=== PATIENT | male | born 1940 | race Caucasian/White ===

== ENCOUNTER 2021-12-23 13:19 | Outpatient (REF) | payer BC, SELFPAY ==
[2021-12-23 14:11] LABS: Chloride* 103 mmol/L (96-114); Potassium* 4.1 mmol/L (3.6-5.1); Sodium* 139 mmol/L (135-149)
[2021-12-23 14:14] LABS: Carbon Dioxide* 29 mmol/L (20-32); Creatinine* 1.3 mg/dL (0.5-1.5); Estimated Glomerular Filt Rate 55 ml/min
[2021-12-23 14:15] LABS: Blood Urea Nitrogen* 41 mg/dL (7-30); Calcium* 8.4 mg/dL (8.4-10.6); Glucose* 114 mg/dL (60-115)
== END 2021-12-23 13:20 | disposition home or self-care (01) ==
LOC: NPINS 13:19
PROVIDERS: PCP Family Medicine; Visit Provider Family Medicine
DX: N18.9 Chronic kidney disease, unspecified (principal)
CPT/HCPCS: 80048

== ENCOUNTER 2022-01-20 09:55 | Outpatient (REF) | payer BC, SELFPAY ==
[2022-01-20 10:39] LABS: Chloride* 100 mmol/L (96-114); Potassium* 3.8 mmol/L (3.6-5.1); Sodium* 139 mmol/L (135-149)
[2022-01-20 10:41] LABS: Creatinine* 1.5 mg/dL (0.5-1.5); Estimated Glomerular Filt Rate 46 ml/min
[2022-01-20 10:42] LABS: Blood Urea Nitrogen* 44 mg/dL (7-30); Calcium* 8.5 mg/dL (8.4-10.6); Carbon Dioxide* 28 mmol/L (20-32); Glucose* 158 mg/dL (60-115)
== END 2022-01-20 09:56 | disposition home or self-care (01) ==
LOC: NPINS 09:55
PROVIDERS: PCP Family Medicine; Visit Provider Family Medicine
DX: N18.9 Chronic kidney disease, unspecified (principal)
CPT/HCPCS: 80048

== ENCOUNTER 2022-04-07 10:55 | Outpatient (CLI) | payer BC, SELFPAY | END 2022-04-07 10:56 | disposition home or self-care (01) | LOC: INJ CL 10:56 | PROVIDERS: PCP Family Medicine; Visit Provider Family Medicine | DX: M54.16 Radiculopathy, lumbar region (principal); M51.36 Other intervertebral disc degeneration, lumbar region | CPT/HCPCS: 64483; J1100; Q9966 ==

== ENCOUNTER 2022-05-07 18:09 | Inpatient (IN) | payer BC, SELFPAY ==
[2022-05-07] VITALS (22 sets, daily range): BP systolic 107–169; BP diastolic 47–102; PULSE 50–72; RESP 25–31; TEMP 36.4; O2SAT 87–96
--- NOTE | 2022-05-07 18:38 | ED_ITS ---
HPI - General Adult General Time Seen by Provider: 18:38 <Dionne Rico MD - Last Filed: 05/07/22 22:05> Date Seen: 05/07/22 <Dionne Rico MD - Last Filed: 05/07/22 22:05> Chief complaint: Shortness of Breath/Dyspnea <Dionne Rico MD - Last Filed: 05/07/22 22:05> Stated complaint: Trouble Breathing Fluid on Lungs <Dionne Rico MD - Last Filed: 05/07/22 22:05> Time Seen by Provider: 05/07/22 18:23 <Dionne Rico MD - Last Filed: 05/07/22 22:05> Source: patient and RN notes reviewed <Dionne Rico MD - Last Filed: 05/07/22 22:05> Mode of arrival: ambulatory <Dionne Rico MD - Last Filed: 05/07/22 22:05> Limitations: no limitations <Dionne Rico MD - Last Filed: 05/07/22 22:05> History of Present Illness HPI narrative: Patient is a resident of [facility] brought in by his sister for concern of congestive heart failure. She states about 2 weeks ago he went from a weight of 193 now into the low 200s. She finally got them to increase his torsemide from 100 mg today to 120. This is been the 1st day of the increased. He has been having increased edema of his legs, increased shortness of breath and difficulty breathing. No fevers noted. His sister has been documenting the weight gain over 2 weeks and has been trying to get them to act on this. She is upset today. Patient and his sister also note that he has a bad back from a surgery that did not go well. Patient's diagnoses from [facility] show pulmonary hypertension, hyperparathyroidism, history of CVA, hypertension, chronic atrial fibrillation, hyperlipidemia, insomnia, gout, GERD without esophagitis, history of DVT and embolism, vitamin-D deficiency, history of group B vitamins unspecified, cyst of kidney, alcohol dependence in remission, chronic pain, diastolic heart failure, chronic kidney disease stage 3 <Dionne Rico MD - Last Filed: 05/07/22 22:05> Related Data Home medications: Home Medications Medication Instructions Recorded Confirmed allopurinol 300 mg tablet 300 mg PO DAILY 05/07/22 05/07/22 aspirin 81 mg tablet,delayed 81 mg PO DAILY 05/07/22 05/07/22 release atorvastatin 40 mg tablet 40 mg PO DAILY 05/07/22 05/07/22 carvedilol 12.5 mg tablet 12.5 mg PO BID 05/07/22 05/08/22 folic acid 1 mg tablet 1 mg PO DAILY 05/07/22 05/07/22 omeprazole 20 mg capsule,delayed 20 mg PO DAILY 05/07/22 05/07/22 release oxycodone-acetaminophen 5 mg-325 1 tab PO Q4H pain 05/07/22 05/08/22 mg tablet polyethylene glycol 3350 17 17 g PO DAILY 05/07/22 05/07/22 gram/dose oral powder sennosides 8.6 mg tablet (senna) 8.6 mg PO DAILY PRN constipation 05/07/22 05/07/22 sildenafil (pulm.hypertension) 20 20 mg PO TID 05/07/22 05/08/22 mg tablet torsemide 20 mg tablet 60 mg PO BID 05/07/22 05/07/22 triamcinolone acetonide 0.1 % 1 applic topical BID 05/07/22 05/07/22 topical cream <Dionne Rico MD - Last Filed: 05/07/22 22:05> Allergies/adverse reactions: Allergies Allergy/AdvReac Type Severity Reaction Status Date / Time cyclobenzaprine Allergy Unknown Verified 05/07/22 18:24 meloxicam Allergy Unknown Verified 05/07/22 18:24 nitroglycerin Allergy Unknown Verified 05/07/22 18:24 NSAIDS (Non-Steroidal Allergy Unknown Verified 05/07/22 18:24 Anti-Inflamma <Dionne Rico MD - Last Filed: 05/07/22 22:05> Review of Systems Status of ROS: Reports: 10 or more systems reviewed and unremarkable except as noted in History and below <Dionne Rico MD - Last Filed: 05/07/22 22:05> PFSH PFSH Social History: Social History Smoking Status: Never smoker Do you use any of these nicotine containing products: None How often do you have a drink containing alcohol: never How often do you have six or more drinks on one occasion: Never AUDIT-C Alcohol total score: 0 Non-prescribed substance use: denies use service: No <Dionne Rico MD - Last Filed: 05/07/22 22:05> Exam Const: Vital Signs, click to edit/add: Vital Signs - 24 hr 05/07/22 18:25 05/07/22 18:46 05/07/22 20:19 Temperature 97.6 F Pulse Rate Pulse Rate [Pulse Oximeter] 50 L Respiratory Rate 26 H Blood Pressure Blood Pressure [Ri ght Upper Arm] 154/90 H Pulse Oximetry 92 95 95 Oxygen Delivery Me thod Room Air Room Air 05/07/22 18:30 05/07/22 19:00 05/07/22 19:30 Temperature 97.6 F Pulse Rate Pulse Rate [Pulse Oximeter] 50 L 57 L 65 Respiratory Rate 26 H 26 H 25 H Blood Pressure Blood Pressure [Ri ght Upper Arm] 169/96 H 151/75 H 151/99 H Pulse Oximetry 95 88 95 Oxygen Delivery Me thod Room Air Room Air Room Air 05/07/22 20:00 05/07/22 20:30 05/07/22 20:53 Temperature Pulse Rate 62 Pulse Rate [Pulse Oximeter] 60 62 Respiratory Rate 31 H 25 H Blood Pressure Blood Pressure [Ri ght Upper Arm] 115/74 129/76 Pulse Oximetry 95 88 95 Oxygen Delivery Me thod Room Air Room Air 05/07/22 21:00 05/07/22 21:03 05/07/22 21:31 Temperature Pulse Rate 61 59 L 72 Pulse Rate [Pulse Oximeter] Respiratory Rate Blood Pressure 115/70 Blood Pressure [Ri ght Upper Arm] Pulse Oximetry 94 94 93 Oxygen Delivery Me thod 05/07/22 21:34 05/07/22 22:01 05/07/22 22:03 Temperature Pulse Rate 59 L 62 64 Pulse Rate [Pulse Oximeter] Respiratory Rate Blood Pressure 136/70 139/66 Blood Pressure [Ri ght Upper Arm] Pulse Oximetry 93 93 96 Oxygen Delivery Me thod 05/07/22 22:04 05/07/22 22:30 05/07/22 22:33 Temperature Pulse Rate 58 L 54 L 67 Pulse Rate [Pulse Oximeter] Respiratory Rate Blood Pressure 136/55 L Blood Pressure [Ri ght Upper Arm] Pulse Oximetry 95 96 96 Oxygen Delivery Me thod 05/07/22 23:00 05/07/22 23:03 05/07/22 23:30 Temperature Pulse Rate 59 L 54 L 54 L Pulse Rate [Pulse Oximeter] Respiratory Rate Blood Pressure 118/102 H Blood Pressure [Ri ght Upper Arm] Pulse Oximetry 87 L 87 L 95 Oxygen Delivery Me thod 05/07/22 23:33 05/08/22 00:00 05/08/22 00:02 Temperature Pulse Rate 51 L 51 L 54 L Pulse Rate [Pulse Oximeter] Respiratory Rate Blood Pressure 107/47 L 114/47 L Blood Pressure [Ri ght Upper Arm] Pulse Oximetry 96 96 92 Oxygen Delivery Me thod 05/08/22 00:32 05/08/22 01:03 05/08/22 01:32 Temperature Pulse Rate Pulse Rate [Pulse Oximeter] Respiratory Rate Blood Pressure 122/55 L 99/43 L 115/47 L Blood Pressure [Ri ght Upper Arm] Pulse Oximetry Oxygen Delivery Me thod 05/08/22 02:03 05/08/22 02:33 05/08/22 03:03 Temperature Pulse Rate Pulse Rate [Pulse Oximeter] Respiratory Rate Blood Pressure 134/65 132/61 130/56 L Blood Pressure [Ri ght Upper Arm] Pulse Oximetry Oxygen Delivery Me thod 05/08/22 03:33 05/08/22 04:03 05/08/22 04:32 Temperature Pulse Rate Pulse Rate [Pulse Oximeter] Respiratory Rate Blood Pressure 145/59 H 131/64 140/57 H Blood Pressure [Ri ght Upper Arm] Pulse Oximetry Oxygen Delivery Me thod 05/08/22 05:03 05/08/22 05:32 05/08/22 06:03 Temperature Pulse Rate Pulse Rate [Pulse Oximeter] Respiratory Rate Blood Pressure 137/59 L 91/44 L 129/69 Blood Pressure [Ri ght Upper Arm] Pulse Oximetry Oxygen Delivery Me thod 05/08/22 06:14 Temperature Pulse Rate 56 L Pulse Rate [Pulse Oximeter] Respiratory Rate Blood Pressure Blood Pressure [Ri ght Upper Arm] Pulse Oximetry 94 Oxygen Delivery Me thod <Dionne Rico MD - Last Filed: 05/07/22 22:05> Vital Signs, click to edit/add: Vital Signs - 24 hr 05/07/22 18:25 05/07/22 18:46 05/07/22 20:19 Temperature 97.6 F Pulse Rate Pulse Rate [Pulse Oximeter] 50 L Respiratory Rate 26 H Blood Pressure Blood Pressure [Ri ght Upper Arm] 154/90 H Pulse Oximetry 92 95 95 Oxygen Delivery Me thod Room Air Room Air 05/07/22 18:30 05/07/22 19:00 05/07/22 19:30 Temperature 97.6 F Pulse Rate Pulse Rate [Pulse Oximeter] 50 L 57 L 65 Respiratory Rate 26 H 26 H 25 H Blood Pressure Blood Pressure [Ri ght Upper Arm] 169/96 H 151/75 H 151/99 H Pulse Oximetry 95 88 95 Oxygen Delivery Me thod Room Air Room Air Room Air 05/07/22 20:00 05/07/22 20:30 05/07/22 20:53 Temperature Pulse Rate 62 Pulse Rate [Pulse Oximeter] 60 62 Respiratory Rate 31 H 25 H Blood Pressure Blood Pressure [Ri ght Upper Arm] 115/74 129/76 Pulse Oximetry 95 88 95 Oxygen Delivery Me thod Room Air Room Air 05/07/22 21:00 05/07/22 21:03 05/07/22 21:31 Temperature Pulse Rate 61 59 L 72 Pulse Rate [Pulse Oximeter] Respiratory Rate Blood Pressure 115/70 Blood Pressure [Ri ght Upper Arm] Pulse Oximetry 94 94 93 Oxygen Delivery Me thod 05/07/22 21:34 05/07/22 22:01 05/07/22 22:03 Temperature Pulse Rate 59 L 62 64 Pulse Rate [Pulse Oximeter] Respiratory Rate Blood Pressure 136/70 139/66 Blood Pressure [Ri ght Upper Arm] Pulse Oximetry 93 93 96 Oxygen Delivery Me thod 05/07/22 22:04 05/07/22 22:30 05/07/22 22:33 Temperature Pulse Rate 58 L 54 L 67 Pulse Rate [Pulse Oximeter] Respiratory Rate Blood Pressure 136/55 L Blood Pressure [Ri ght Upper Arm] Pulse Oximetry 95 96 96 Oxygen Delivery Me thod 05/07/22 23:00 05/07/22 23:03 05/07/22 23:30 Temperature Pulse Rate 59 L 54 L 54 L Pulse Rate [Pulse Oximeter] Respiratory Rate Blood Pressure 118/102 H Blood Pressure [Ri ght Upper Arm] Pulse Oximetry 87 L 87 L 95 Oxygen Delivery Me thod 05/07/22 23:33 05/08/22 00:00 05/08/22 00:02 Temperature Pulse Rate 51 L 51 L 54 L Pulse Rate [Pulse Oximeter] Respiratory Rate Blood Pressure 107/47 L 114/47 L Blood Pressure [Ri ght Upper Arm] Pulse Oximetry 96 96 92 Oxygen Delivery Me thod 05/08/22 00:32 05/08/22 01:03 05/08/22 01:32 Temperature Pulse Rate Pulse Rate [Pulse Oximeter] Respiratory Rate Blood Pressure 122/55 L 99/43 L 115/47 L Blood Pressure [Ri ght Upper Arm] Pulse Oximetry Oxygen Delivery Me thod 05/08/22 02:03 05/08/22 02:33 05/08/22 03:03 Temperature Pulse Rate Pulse Rate [Pulse Oximeter] Respiratory Rate Blood Pressure 134/65 132/61 130/56 L Blood Pressure [Ri ght Upper Arm] Pulse Oximetry Oxygen Delivery Me thod 05/08/22 03:33 05/08/22 04:03 05/08/22 04:32 Temperature Pulse Rate Pulse Rate [Pulse Oximeter] Respiratory Rate Blood Pressure 145/59 H 131/64 140/57 H Blood Pressure [Ri ght Upper Arm] Pulse Oximetry Oxygen Delivery Me thod 05/08/22 05:03 05/08/22 05:32 05/08/22 06:03 Temperature Pulse Rate Pulse Rate [Pulse Oximeter] Respiratory Rate Blood Pressure 137/59 L 91/44 L 129/69 Blood Pressure [Ri ght Upper Arm] Pulse Oximetry Oxygen Delivery Me thod 05/08/22 06:14 Temperature Pulse Rate 56 L Pulse Rate [Pulse Oximeter] Respiratory Rate Blood Pressure Blood Pressure [Ri ght Upper Arm] Pulse Oximetry 94 Oxygen Delivery Me thod <Heath Perez MD - Last Filed: 05/08/22 07:39> Vital Signs, click to edit/add: Vital Signs - 24 hr 05/07/22 18:25 05/07/22 18:46 05/07/22 20:19 Temperature 97.6 F Pulse Rate Pulse Rate [Pulse Oximeter] 50 L Respiratory Rate 26 H Blood Pressure Blood Pressure [Ri ght Upper Arm] 154/90 H Pulse Oximetry 92 95 95 Oxygen Delivery Me thod Room Air Room Air 05/07/22 18:30 05/07/22 19:00 05/07/22 19:30 Temperature 97.6 F Pulse Rate Pulse Rate [Pulse Oximeter] 50 L 57 L 65 Respiratory Rate 26 H 26 H 25 H Blood Pressure Blood Pressure [Ri ght Upper Arm] 169/96 H 151/75 H 151/99 H Pulse Oximetry 95 88 95 Oxygen Delivery Me thod Room Air Room Air Room Air 05/07/22 20:00 05/07/22 20:30 05/07/22 20:53 Temperature Pulse Rate 62 Pulse Rate [Pulse Oximeter] 60 62 Respiratory Rate 31 H 25 H Blood Pressure Blood Pressure [Ri ght Upper Arm] 115/74 129/76 Pulse Oximetry 95 88 95 Oxygen Delivery Me thod Room Air Room Air 05/07/22 21:00 05/07/22 21:03 05/07/22 21:31 Temperature Pulse Rate 61 59 L 72 Pulse Rate [Pulse Oximeter] Respiratory Rate Blood Pressure 115/70 Blood Pressure [Ri ght Upper Arm] Pulse Oximetry 94 94 93 Oxygen Delivery Me thod 05/07/22 21:34 05/07/22 22:01 05/07/22 22:03 Temperature Pulse Rate 59 L 62 64 Pulse Rate [Pulse Oximeter] Respiratory Rate Blood Pressure 136/70 139/66 Blood Pressure [Ri ght Upper Arm] Pulse Oximetry 93 93 96 Oxygen Delivery Me thod 05/07/22 22:04 05/07/22 22:30 05/07/22 22:33 Temperature Pulse Rate 58 L 54 L 67 Pulse Rate [Pulse Oximeter] Respiratory Rate Blood Pressure 136/55 L Blood Pressure [Ri ght Upper Arm] Pulse Oximetry 95 96 96 Oxygen Delivery Me thod 05/07/22 23:00 05/07/22 23:03 05/07/22 23:30 Temperature Pulse Rate 59 L 54 L 54 L Pulse Rate [Pulse Oximeter] Respiratory Rate Blood Pressure 118/102 H Blood Pressure [Ri ght Upper Arm] Pulse Oximetry 87 L 87 L 95 Oxygen Delivery Me thod 05/07/22 23:33 05/08/22 00:00 05/08/22 00:02 Temperature Pulse Rate 51 L 51 L 54 L Pulse Rate [Pulse Oximeter] Respiratory Rate Blood Pressure 107/47 L 114/47 L Blood Pressure [Ri ght Upper Arm] Pulse Oximetry 96 96 92 Oxygen Delivery Me thod 05/08/22 00:32 05/08/22 01:03 05/08/22 01:32 Temperature Pulse Rate Pulse Rate [Pulse Oximeter] Respiratory Rate Blood Pressure 122/55 L 99/43 L 115/47 L Blood Pressure [Ri ght Upper Arm] [facility] 02:03 05/08/22 02:33 05/08/22 03:03 Temperature Pulse Rate Pulse Rate [Pulse Oximeter] Respiratory Rate Blood Pressure 134/65 132/61 130/56 L Blood Pressure [Ri ght Upper Arm] Pulse Oximetry [facility] 05/08/22 03:33 05/08/22 04:03 05/08/22 04:32 Temperature Pulse Rate Pulse Rate [Pulse Oximeter] Respiratory Rate Blood Pressure 145/59 H 131/64 140/57 H Blood Pressure [Ri ght Upper Arm] Pulse Oximetry [facility] 05[facility]22 05:03 05/08/22 05:32 05/08/22 06:03 Temperature Pulse Rate Pulse Rate [Pulse Oximeter] Respiratory Rate Blood Pressure 137/59 L 91/44 L 129/69 Blood Pressure [Ri ght Upper Arm] Pulse Oximetry [facility] 05/08/22 06:14 Temperature Pulse Rate 56 L Pulse Rate [Pulse Oximeter] Respiratory Rate Blood Pressure Blood Pressure [Ri ght Upper Arm] Pulse Oximetry 94 [facility] <Zain Duarte MD - Last Filed: 05/08/22 13:05> Documenting provider has reviewed patient's vital signs: yes <Dionne Rico MD - Last Filed: 05/07/22 22:05> Common normals: no apparent distress, oriented x3, no limitations and alert <Dionne Rico MD - Last Filed: 05/07/22 22:05> General appearance: cooperative, ill appearing and frail appearing <Dionne Rico MD - Last Filed: 05/07/22 22:05> HENMT: Common normals: normocephalic, head/scalp atraumatic, hearing grossly normal bilaterally, external nose normal, nasal mucous membranes and turbinates normal and moist oral mucous membranes <Dionne Rico MD - Last Filed: 05/07/22 22:05> Head and scalp: normocephalic and atraumatic <Dionne Rico MD - Last Filed: 05/07/22 22:05> Nose: external nose normal and nasal mucous membranes and turbinates normal <Dionne Rico MD - Last Filed: 05/07/22 22:05> Eye: Common normals: PERRL, EOMs intact bilaterally, conjunctivae normal and no scleral icterus <Dionne Rico MD - Last Filed: 05/07/22 22:05> Conjunctiva: conjunctiva(e) normal <Dionne Rico MD - Last Filed: 05/07/22 22:05> Pupil: PERRL <Dionne Rico MD - Last Filed: 05/07/22 22:05> Neck & C-Spine: Common normals: full ROM and no lymphadenopathy <Dionne Rico MD - Last Filed: 05/07/22 22:05> Other: Patient is lying on his right side on the bed, this is his position of comfort for his back. Unable to assess jugular venous distension. <Dionne Mcknight MD - Last Filed: 05/07/22 22:05> Resp: Other: Diminished effort with breath sounds, here crackles at bases that are soft. Seems mildly tachypneic but able to speak in short phrases. <Dionne Mcknight MD - Last Filed: 05/07/22 22:05> Cardio: Common normals: regular rate, regular rhythm, S1 normal heart sound, S2 normal heart sound, no gallops, no clicks and no murmurs <Dionne Rico MD - Last Filed: 05/07/22 22:05> Rate: regular rate <Dionne Rico MD - Last Filed: 05/07/22 22:05> Rhythm: regular rhythm <Dionne Rico MD - Last Filed: 05/07/22 22:05> Heart sounds: S1 normal and S2 normal <Dionne Rico MD - Last Filed: 05/07/22 22:05> GI: Common normals: Normal to inspection, nondistended, normoactive bowel sounds present, soft to palpation, non-tender, no hepatosplenomegaly and no masses <Dionne Rico MD - Last Filed: 05/07/22 22:05> Palpation: soft and no hepatosplenomegaly <Dionne Rico MD - Last Filed: 05/07/22 22:05> Extremity: Other: Bilateral florid pitting edema of both extremities, no overt skin changes noted outside of that. <Dionne Rico MD - Last Filed: 05/07/22 22:05> Neuro: Common normals: oriented x3 <Dionne Rico MD - Last Filed: 05/07/22 22:05> Sensorium/orientation: alert <Dionne Rico MD - Last Filed: 05/07/22 22:05> Course Course Hospital Course: Will work him up as far as cardiac status, portable chest x-ray, EKG, monitoring with cardiac monitoring pulse oximetry. Full complement of labs will be obtained. Will get a screening COVID test on him as I do think it likely he will need hospitalization. Will initiate Lasix 80 mg IV and see if this has adequate effect. I do not feel that he needs any invasive airway such as BiPAP at this time, but do see the need for IV diuresis. <Dionne Rico MD - Last Filed: 05/07/22 22:05> Reevaluation(s) Reevaluation #1: Patient has had about 500 mL urine out. He is feeling a bit better. Have reviewed with his sister that he really cannot go home. She does not think he has had an echo for quite a long time. I will get this ordered. They do have some of his medications with. He does get a 1:00 a.m. oxycodone 5/325. He gets a 6:00 a.m. and 10:00 a.m. as well. At 6:00 a.m. in the morning he gets 300 mg allopurinol, 12.5 Coreg, 20 mg omeprazole, senna, sildenafil 20 mg, and would typically get 60 mg torsemide. We did start him on a low-dose nasal cannula oxygen for some symptom relief. He will need to stay in the ER unfortunately as there are no beds at any other facilities, even surrounding local facilities. Our bed status is currently full as well. Have ordered some of his medicines, have ordered his pain medicines through 10:00 a.m. tomorrow morning. His sildenafil is not something we have on formulary and pharmacy will have to go into his medicine pack it and pull this pill out in the morning. Will order Lasix 80 mg at 6:00 a.m., overnight physician will have to dosage early if needed but he has 700 mL out thus far. Did briefly talk to our hospitalist about consultation but they are busy with floor patients. I have ordered an echo for tomorrow, I have ordered a.m. labs with a CBC and basic metabolic panel. We are monitoring ins and outs. <Dionne Rico MD - Last Fi led: 05/07/22 22:05> Time: 21:31 <Dionne Rico MD - Last Filed: 05/07/22 22:05> Reevaluation #2: Patient has been stable through the night. He is diuresing well. He has not been weighed yet this morning. He is not hypoxic. His labs are stable. Will continue to look for placement. <Heath Perez MD - Last Filed: 05/08/22 07:39> Vital Signs Vital signs: Initial Vital Signs Temperature 97.6 F 05/07/22 18:25 Temperature Source Temporal Artery Scan 05/07/22 18:25 Pulse Rate 50 L 05/07/22 18:25 Respiratory Rate 26 H 05/07/22 18:25 Blood Pressure 154/90 H 05/07/22 18:25 Blood Pressure Mean 111 05/07/22 18:25 Blood Pressure Position Sitting 05/07/22 18:25 Pulse Oximetry 92 05/07/22 18:25 Oxygen Delivery Method 05/07/22 18:25 Vital Signs Temperature 97.6 F 05/07/22 18:25 Pulse Rate 50 L 05/07/22 18:25 Respiratory Rate 26 H 05/07/22 18:25 Blood Pressure 154/90 H 05/07/22 18:25 Pulse Oximetry 92 05/07/22 18:25 Oxygen Delivery Method 05/07/22 18:25 Temperature 97.6 F 05/07/22 18:30 Pulse Rate 56 L 05/08/22 06:14 Respiratory Rate 25 H 05/07/22 20:30 Blood Pressure 129/69 05/08/22 06:03 Pulse Oximetry 94 05/08/22 06:14 Oxygen Delivery Method 05/07/22 20:30 <Dionne Rico MD - Last Filed: 05/07/22 22:05> Initial Vital Signs Temperature 97.6 F 05/07/22 18:25 Temperature Source Temporal Artery Scan 05/07/22 18:25 Pulse Rate 50 L 05/07/22 18:25 Respiratory Rate 26 H 05/07/22 18:25 Blood Pressure 154/90 H 05/07/22 18:25 Blood Pressure Mean 111 05/07/22 18:25 Blood Pressure Position Sitting 05/07/22 18:25 Pulse Oximetry 92 05/07/22 18:25 Oxygen Delivery Method 05/07/22 18:25 Vital Signs Temperature 97.6 F 05/07/22 18:25 Pulse Rate 50 L 05/07/22 18:25 Respiratory Rate 26 H 05/07/22 18:25 Blood Pressure 154/90 H 05/07/22 18:25 Pulse Oximetry 92 05/07/22 18:25 Oxygen Delivery Method 05/07/22 18:25 Temperature 97.6 F 05/07/22 18:30 Pulse Rate 56 L 05/08/22 06:14 Respiratory Rate 25 H 05/07/22 20:30 Blood Pressure 129/69 05/08/22 06:03 Pulse Oximetry 94 05/08/22 06:14 Oxygen Delivery Method 05/07/22 20:30 <Heath Perez MD - Last Filed: 05/08/22 07:39> Initial Vital Signs Temperature 97.6 F 05/07/22 18:25 Temperature Source Temporal Artery Scan 05/07/22 18:25 Pulse Rate 50 L 05/07/22 18:25 Respiratory Rate 26 H 05/07/22 18:25 Blood Pressure 154/90 H 05/07/22 18:25 Blood Pressure Mean 111 05/07/22 18:25 Blood Pressure Position Sitting 05/07/22 18:25 Pulse Oximetry 92 05/07/22 18:25 Oxygen Delivery Method 05/07/22 18:25 Vital Signs Temperature 97.6 F 05/07/22 18:25 Pulse Rate 50 L 05/07/22 18:25 Respiratory Rate 26 H 05/07/22 18:25 Blood Pressure 154/90 H 05/07/22 18:25 Pulse Oximetry 92 05/07/22 18:25 Oxygen Delivery Method 05/07/22 18:25 Temperature 97.6 F 05/07/22 18:30 Pulse Rate 56 L 05/08/22 06:14 Respiratory Rate 25 H 05/07/22 20:30 Blood Pressure 129/69 05/08/22 06:03 Pulse Oximetry 94 05/08/22 06:14 Oxygen Delivery Method 05/07/22 20:30 <Zain Duarte MD - Last Filed: 05/08/22 13:05> Medical Decision Making MDM Narrative Medical decision making narrative: This patient has been boarding here as there are no beds available. At about 1:00 p.m. I did here from the nursing recreation facilities supervisor that there are beds opening up here so I did talk with Dr. Motta who agrees to this patient's admission into the hospital. The patient did receive a diuretic intravenously. He has otherwise been doing well and maintaining normal vital signs. Dr. Oswaldo Duarte <Zain Duarte MD - Last Filed: 05/08/22 13:05> Lab Data Labs: Lab Results 05/07/22 05/07/22 05/07/22 Range/Units 19:20 19:47 19:47 WBC 7.36 (4.50-11.00) K/uL RBC 4.28 L (4.30-5.90) m/uL Hgb 12.0 L (13.5-17.5) gm/dL Hct 39.4 (37.0-53.0) % MCV 92 (80-100) fL MCH 28 (26-34) pg MCHC 31 L (32-36) gm/dL RDW Coeff of Adalberto 17.3 H (11.5-15.5) % Plt Count 151 (140-440) K/uL Neut % (Auto) 75.1 H (42.0-72.0) % Lymph % (Auto) 8.6 L (20-44) % [place] % (Auto) 9.5 (0.0-11.0) % Eos % (Auto) 6.3 (0.0-7.0) % Baso % (Auto) 0.4 (0.0-3.0) % Neut # (Auto) 5.50 (1.7-7.0) K/uL Lymph # (Auto) 0.60 L (0.90-2.90) K/uL [place] # (Auto) 0.70 (0.00-0.90) K/UL Eos # (Auto) 0.46 (0.00-0.50) K/uL Baso # (Auto) 0.03 (0.00-0.30) K/uL Abs Immat Gran (auto) 0.01 (0.00-0.30) K/uL Imm/Tot Granulo (auto) 0.1 % Sodium 139 (135-149) mmol/L Potassium 3.9 (3.6-5.1) mmol/L Chloride 101 (96-114) mmol/L Carbon Dioxide 31 (20-32) mmol/L BUN 45 H (7-30) mg/dL Creatinine 1.7 H (0.5-1.5) mg/dL Estimated GFR 40 ml/min Glucose 124 H (60-115) mg/dL Calcium 8.5 (8.4-10.6) mg/dL Magnesium 2.2 (1.5-2.6) mg/dL Total Bilirubin 1.5 (0.1-1.5) mg/dL AST 28 (12-35) U/L ALT 24 (4-50) U/L Alkaline Phosphatase 138 (40-150) U/L Troponin I (0.01-0.04) ng/mL NT-Pro-B Natriuret Pep 3700 H (0-450) PG/mL Total Protein 6.2 (6.0-8.3) g/dL Albumin 4.0 (3.3-5.0) g/dL TSH (0.270-4.200) uIU/mL SARS-CoV-2 (PCR) Negative SARS-CoV-2 (Negative) POC Troponin I (0.01-0.04) ng/ml 05/07/22 05/07/22 05/08/22 Range/Units 19:47 19:47 04:45 WBC 5.96 (4.50-11.00) K/uL RBC 4.19 L (4.30-5.90) m/uL Hgb 11.7 L (13.5-17.5) gm/dL Hct 38.5 (37.0-53.0) % MCV 92 (80-100) fL MCH 28 (26-34) pg MCHC 30 L (32-36) gm/dL RDW Coeff of Adalberto 17.2 H (11.5-15.5) % Plt Count 145 (140-440) K/uL Neut % (Auto) 73.1 H (42.0-72.0) % Lymph % (Auto) 9.7 L (20-44) % [place] % (Auto) 10.7 (0.0-11.0) % Eos % (Auto) 6.0 (0.0-7.0) % Baso % (Auto) 0.3 (0.0-3.0) % Neut # (Auto) 4.40 (1.7-7.0) K/uL Lymph # (Auto) 0.60 L (0.90-2.90) K/uL [place] # (Auto) 0.60 (0.00-0.90) K/UL Eos # (Auto) 0.36 (0.00-0.50) K/uL Baso # (Auto) 0.02 (0.00-0.30) K/uL Abs Immat Gran (auto) 0.01 (0.00-0.30) K/uL Imm/Tot Granulo (auto) 0.2 % Sodium (135-149) mmol/L Potassium (3.6-5.1) mmol/L Chloride (96-114) mmol/L Carbon Dioxide (20-32) mmol/L BUN (7-30) mg/dL Creatinine (0.5-1.5) mg/dL Estimated GFR ml/min Glucose (60-115) mg/dL Calcium (8.4-10.6) mg/dL Magnesium (1.5-2.6) mg/dL Total Bilirubin (0.1-1.5) mg/dL AST (12-35) U/L ALT (4-50) U/L Alkaline Phosphatase (40-150) U/L Troponin I (0.01-0.04) ng/mL NT-Pro-B Natriuret Pep (0-450) PG/mL Total Protein (6.0-8.3) g/dL Albumin (3.3-5.0) g/dL TSH 3.770 (0.270-4.200) uIU/mL SARS-CoV-2 (PCR) (Negative) POC Troponin I 0.05 H (0.01-0.04) ng/ml 05/08/22 Range/Units 04:45 WBC (4.50-11.00) K/uL RBC (4.30-5.90) m/uL Hgb (13.5-17.5) gm/dL Hct (37.0-53.0) % MCV (80-100) fL MCH (26-34) pg MCHC (32-36) gm/dL RDW Coeff of Adalberto (11.5-15.5) % Plt Count (140-440) K/uL Neut % (Auto) (42.0-72.0) % Lymph % (Auto) (20-44) % [place]osh[place] % (Auto) (0.0-11.0) % Eos % (Auto) (0.0-7.0) % Baso % (Auto) (0.0-3.0) % Neut # (Auto) (1.7-7.0) K/uL Lymph # (Auto) (0.90-2.90) K/uL [place]one # (Auto) (0.00-0.90) K/UL Eos # (Auto) (0.00-0.50) K/uL Baso # (Auto) (0.00-0.30) K/uL Abs Immat Gran (auto) (0.00-0.30) K/uL Imm/Tot Granulo (auto) % Sodium 140 (135-149) mmol/L Potassium 3.7 (3.6-5.1) mmol/L Chloride 103 (96-114) mmol/L Carbon Dioxide 32 (20-32) mmol/L BUN 44 H (7-30) mg/dL Creatinine 1.5 (0.5-1.5) mg/dL Estimated GFR 46 ml/min Glucose 105 (60-115) mg/dL Calcium 8.5 (8.4-10.6) mg/dL Magnesium (1.5-2.6) mg/dL Total Bilirubin (0.1-1.5) mg/dL AST (12-35) U/L ALT (4-50) U/L Alkaline Phosphatase (40-150) U/L Troponin I 0.05 H (0.01-0.04) ng/mL NT-Pro-B Natriuret Pep (0-450) PG/mL Total Protein (6.0-8.3) g/dL Albumin (3.3-5.0) g/dL TSH (0.270-4.200) uIU/mL SARS-CoV-2 (PCR) (Negative) POC Troponin I (0.01-0.04) ng/ml <Dionne Rico MD - Last Filed: 05/07/22 22:05> Lab Results 05/07/22 05/07/22 05/07/22 Range/Units 19:20 19:47 19:47 WBC 7.36 (4.50-11.00) K/uL RBC 4.28 L (4.30-5.90) m/uL Hgb 12.0 L (13.5-17.5) gm/dL Hct 39.4 (37.0-53.0) % MCV 92 (80-100) fL MCH 28 (26-34) pg MCHC 31 L (32-36) gm/dL RDW Coeff of Adalberto 17.3 H (11.5-15.5) % Plt Count 151 (140-440) K/uL Neut % (Auto) 75.1 H (42.0-72.0) % Lymph % (Auto) 8.6 L (20-44) % [place] % (Auto) 9.5 (0.0-11.0) % Eos % (Auto) 6.3 (0.0-7.0) % Baso % (Auto) 0.4 (0.0-3.0) % Neut # (Auto) 5.50 (1.7-7.0) K/uL Lymph # (Auto) 0.60 L (0.90-2.90) K/uL [place] # (Auto) 0.70 (0.00-0.90) K/UL Eos # (Auto) 0.46 (0.00-0.50) K/uL Baso # (Auto) 0.03 (0.00-0.30) K/uL Abs Immat Gran (auto) 0.01 (0.00-0.30) K/uL Imm/Tot Granulo (auto) 0.1 % Sodium 139 (135-149) mmol/L Potassium 3.9 (3.6-5.1) mmol/L Chloride 101 (96-114) mmol/L Carbon Dioxide 31 (20-32) mmol/L BUN 45 H (7-30) mg/dL Creatinine 1.7 H (0.5-1.5) mg/dL Estimated GFR 40 ml/min Glucose 124 H (60-115) mg/dL Calcium 8.5 (8.4-10.6) mg/dL Magnesium 2.2 (1.5-2.6) mg/dL Total Bilirubin 1.5 (0.1-1.5) mg/dL AST 28 (12-35) U/L ALT 24 (4-50) U/L Alkaline Phosphatase 138 (40-150) U/L Troponin I (0.01-0.04) ng/mL NT-Pro-B Natriuret Pep 3700 H (0-450) PG/mL Total Protein 6.2 (6.0-8.3) g/dL Albumin 4.0 (3.3-5.0) g/dL TSH (0.270-4.200) uIU/mL SARS-CoV-2 (PCR) Negative SARS-CoV-2 (Negative) POC Troponin I (0.01-0.04) ng/ml 05/07/22 05/07/22 05/08/22 Range/Units 19:47 19:47 04:45 WBC 5.96 (4.50-11.00) K/uL RBC 4.19 L (4.30-5.90) m/uL Hgb 11.7 L (13.5-17.5) gm/dL Hct 38.5 (37.0-53.0) % MCV 92 (80-100) fL MCH 28 (26-34) pg MCHC 30 L (32-36) gm/dL RDW Coeff of Adalberto 17.2 H (11.5-15.5) % Plt Count 145 (140-440) K/uL Neut % (Auto) 73.1 H (42.0-72.0) % Lymph % (Auto) 9.7 L (20-44) % [place] % (Auto) 10.7 (0.0-11.0) % Eos % (Auto) 6.0 (0.0-7.0) % Baso % (Auto) 0.3 (0.0-3.0) % Neut # (Auto) 4.40 (1.7-7.0) K/uL Lymph # (Auto) 0.60 L (0.90-2.90) K/uL [place] # (Auto) 0.60 (0.00-0.90) K/UL Eos # (Auto) 0.36 (0.00-0.50) K/uL Baso # (Auto) 0.02 (0.00-0.30) K/uL Abs Immat Gran (auto) 0.01 (0.00-0.30) K/uL Imm/Tot Granulo (auto) 0.2 % Sodium (135-149) mmol/L Potassium (3.6-5.1) mmol/L Chloride (96-114) mmol/L Carbon Dioxide (20-32) mmol/L BUN (7-30) mg/dL Creatinine (0.5-1.5) mg/dL Estimated GFR ml/min Glucose (60-115) mg/dL Calcium (8.4-10.6) mg/dL Magnesium (1.5-2.6) mg/dL Total Bilirubin (0.1-1.5) mg/dL AST (12-35) U/L ALT (4-50) U/L Alkaline Phosphatase (40-150) U/L Troponin I (0.01-0.04) ng/mL NT-Pro-B Natriuret Pep (0-450) PG/mL Total Protein (6.0-8.3) g/dL Albumin (3.3-5.0) g/dL TSH 3.770 (0.270-4.200) uIU/mL SARS-CoV-2 (PCR) (Negative) POC Troponin I 0.05 H (0.01-0.04) ng/ml 05/08/22 Range/Units 04:45 WBC (4.50-11.00) K/uL RBC (4.30-5.90) m/uL Hgb (13.5-17.5) gm/dL Hct (37.0-53.0) % MCV (80-100) fL MCH (26-34) pg MCHC (32-36) gm/dL RDW Coeff of Adalberto (11.5-15.5) % Plt Count (140-440) K/uL Neut % (Auto) (42.0-72.0) % Lymph % (Auto) (20-44) % [place] % (Auto) (0.0-11.0) % Eos % (Auto) (0.0-7.0) % Baso % (Auto) (0.0-3.0) % Neut # (Auto) (1.7-7.0) K/uL Lymph # (Auto) (0.90-2.90) K/uL [place] # (Auto) (0.00-0.90) K/UL Eos # (Auto) (0.00-0.50) K/uL Baso # (Auto) (0.00-0.30) K/uL Abs Immat Gran (auto) (0.00-0.30) K/uL Imm/Tot Granulo (auto) % Sodium 140 (135-149) mmol/L Potassium 3.7 (3.6-5.1) mmol/L Chloride 103 (96-114) mmol/L Carbon Dioxide 32 (20-32) mmol/L BUN 44 H (7-30) mg/dL Creatinine 1.5 (0.5-1.5) mg/dL Estimated GFR 46 ml/min Glucose 105 (60-115) mg/dL Calcium 8.5 (8.4-10.6) mg/dL Magnesium (1.5-2.6) mg/dL Total Bilirubin (0.1-1.5) mg/dL AST (12-35) U/L ALT (4-50) U/L Alkaline Phosphatase (40-150) U/L Troponin I 0.05 H (0.01-0.04) ng/mL NT-Pro-B Natriuret Pep (0-450) PG/mL Total Protein (6.0-8.3) g/dL Albumin (3.3-5.0) g/dL TSH (0.270-4.200) uIU/mL SARS-CoV-2 (PCR) (Negative) POC Troponin I (0.01-0.04) ng/ml <Heath Perez MD - Last Filed: 05/08/22 07:39> Lab Results 05/07/22 05/07/22 05/07/22 Range/Units 19:20 19:47 19:47 WBC 7.36 (4.50-11.00) K/uL RBC 4.28 L (4.30-5.90) m/uL Hgb 12.0 L (13.5-17.5) gm/dL Hct 39.4 (37.0-53.0) % MCV 92 (80-100) fL MCH 28 (26-34) pg MCHC 31 L (32-36) gm/dL RDW Coeff of Adalberto 17.3 H (11.5-15.5) % Plt Count 151 (140-440) K/uL Neut % (Auto) 75.1 H (42.0-72.0) % Lymph % (Auto) 8.6 L (20-44) % [place] % (Auto) 9.5 (0.0-11.0) % Eos % (Auto) 6.3 (0.0-7.0) % Baso % (Auto) 0.4 (0.0-3.0) % Neut # (Auto) 5.50 (1.7-7.0) K/uL Lymph # (Auto) 0.60 L (0.90-2.90) K/uL [place] # (Auto) 0.70 (0.00-0.90) K/UL Eos # (Auto) 0.46 (0.00-0.50) K/uL Baso # (Auto) 0.03 (0.00-0.30) K/uL Abs Immat Gran (auto) 0.01 (0.00-0.30) K/uL Imm/Tot Granulo (auto) 0.1 % Sodium 139 (135-149) mmol/L Potassium 3.9 (3.6-5.1) mmol/L Chloride 101 (96-114) mmol/L Carbon Dioxide 31 (20-32) mmol/L BUN 45 H (7-30) mg/dL Creatinine 1.7 H (0.5-1.5) mg/dL Estimated GFR 40 ml/min Glucose 124 H (60-115) mg/dL Calcium 8.5 (8.4-10.6) mg/dL Magnesium 2.2 (1.5-2.6) mg/dL Total Bilirubin 1.5 (0.1-1.5) mg/dL AST 28 (12-35) U/L ALT 24 (4-50) U/L Alkaline Phosphatase 138 (40-150) U/L Troponin I (0.01-0.04) ng/mL NT-Pro-B Natriuret Pep 3700 H (0-450) PG/mL Total Protein 6.2 (6.0-8.3) g/dL Albumin 4.0 (3.3-5.0) g/dL TSH (0.270-4.200) uIU/mL SARS-CoV-2 (PCR) Negative SARS-CoV-2 (Negative) POC Troponin I (0.01-0.04) ng/ml 05/07/22 05/07/22 05/08/22 Range/Units 19:47 19:47 04:45 WBC 5.96 (4.50-11.00) K/uL RBC 4.19 L (4.30-5.90) m/uL Hgb 11.7 L (13.5-17.5) gm/dL Hct 38.5 (37.0-53.0) % MCV 92 (80-100) fL MCH 28 (26-34) pg MCHC 30 L (32-36) gm/dL RDW Coeff of Adalberto 17.2 H (11.5-15.5) % Plt Count 145 (140-440) K/uL Neut % (Auto) 73.1 H (42.0-72.0) % Lymph % (Auto) 9.7 L (20-44) % [place] % (Auto) 10.7 (0.0-11.0) % Eos % (Auto) 6.0 (0.0-7.0) % Baso % (Auto) 0.3 (0.0-3.0) % Neut # (Auto) 4.40 (1.7-7.0) K/uL Lymph # (Auto) 0.60 L (0.90-2.90) K/uL [place] # (Auto) 0.60 (0.00-0.90) K/UL Eos # (Auto) 0.36 (0.00-0.50) K/uL Baso # (Auto) 0.02 (0.00-0.30) K/uL Abs Immat Gran (auto) 0.01 (0.00-0.30) K/uL Imm/Tot Granulo (auto) 0.2 % Sodium (135-149) mmol/L Potassium (3.6-5.1) mmol/L Chloride (96-114) mmol/L Carbon Dioxide (20-32) mmol/L BUN (7-30) mg/dL Creatinine (0.5-1.5) mg/dL Estimated GFR ml/min Glucose (60-115) mg/dL Calcium (8.4-10.6) mg/dL Magnesium (1.5-2.6) mg/dL Total Bilirubin (0.1-1.5) mg/dL AST (12-35) U/L ALT (4-50) U/L Alkaline Phosphatase (40-150) U/L Troponin I (0.01-0.04) ng/mL NT-Pro-B Natriuret Pep (0-450) PG/mL Total Protein (6.0-8.3) g/dL Albumin (3.3-5.0) g/dL TSH 3.770 (0.270-4.200) uIU/mL SARS-CoV-2 (PCR) (Negative) POC Troponin I 0.05 H (0.01-0.04) ng/ml 05/08/22 Range/Units 04:45 WBC (4.50-11.00) K/uL RBC (4.30-5.90) m/uL Hgb (13.5-17.5) gm/dL Hct (37.0-53.0) % MCV (80-100) fL MCH (26-34) pg MCHC (32-36) gm/dL RDW Coeff of Adalberto (11.5-15.5) % Plt Count (140-440) K/uL Neut % (Auto) (42.0-72.0) % Lymph % (Auto) (20-44) % [place] % (Auto) (0.0-11.0) % Eos % (Auto) (0.0-7.0) % Baso % (Auto) (0.0-3.0) % Neut # (Auto) (1.7-7.0) K/uL Lymph # (Auto) (0.90-2.90) K/uL [place] # (Auto) (0.00-0.90) K/UL Eos # (Auto) (0.00-0.50) K/uL Baso # (Auto) (0.00-0.30) K/uL Abs Immat Gran (auto) (0.00-0.30) K/uL Imm/Tot Granulo (auto) % Sodium 140 (135-149) mmol/L Potassium 3.7 (3.6-5.1) mmol/L Chloride 103 (96-114) mmol/L Carbon Dioxide 32 (20-32) mmol/L BUN 44 H (7-30) mg/dL Creatinine 1.5 (0.5-1.5) mg/dL Estimated GFR 46 ml/min Glucose 105 (60-115) mg/dL Calcium 8.5 (8.4-10.6) mg/dL Magnesium (1.5-2.6) mg/dL Total Bilirubin (0.1-1.5) mg/dL AST (12-35) U/L ALT (4-50) U/L Alkaline Phosphatase (40-150) U/L Troponin I 0.05 H (0.01-0.04) ng/mL NT-Pro-B Natriuret Pep (0-450) PG/mL Total Protein (6.0-8.3) g/dL Albumin (3.3-5.0) g/dL TSH (0.270-4.200) uIU/mL SARS-CoV-2 (PCR) (Negative) POC Troponin I (0.01-0.04) ng/ml <Zain Duarte MD - Last Filed: 05/08/22 13:05> Imaging Data Chest x-ray: Attestation: I have reviewed the pertinent imaging results. <Dionne Mcknight MD - Last Filed: 05/07/22 22:05> My impression: I see significant cardiomegaly but no overt CHF on his chest x-ray. <Dionne Rico MD - Last Filed: 05/07/22 22:05> Radiologist's impression: Patient: ROMARIO MOELLER Facility:?[facility] Patient ID:?[id number] Site Patient ID:?[id number]. Site :?[id number] Study:?XRay Chest PORTABLE-05/07/2022 7:03:16 PM Ordering Physician:Tesfaye Truong Final Report: INDICATION: Shortness of breath, edema. TECHNIQUE: Chest 1 views. COMPARISON: None. FINDINGS: Lungs: Clear lungs. No consolidation. Pleura: No pleural effusion or pneumothorax. Heart and Mediastinum: Notable cardiomegaly. The vessels are unremarkable. Bones: Unremarkable. IMPRESSION: No acute cardiopulmonary disease. Dictated by Aleksander James MD @ 05/07/2022 7:18:58 PM (Electronic Signature) <Dionne Rico MD - Last Filed: 05/07/22 22:05> ECG Data Attestation: I personally reviewed and interpreted this ECG as follows: (Atrial fibrillation, rate 60. Nonspecific T-wave changes, nothing definitive for ischemia.) <Dionne Rico MD - Last Filed: 05/07/22 22:05> Prior ECG tracings: not available for review <Dionne Rico MD - Last Filed: 05/07/22 22:05> Critical Care Time Critical Care Time Critical Care Time: No <Dionne Rico MD - Last Filed: 05/07/22 22:05> Discharge Plan Discharge Clinical Impression: Congestive heart failure <Dionne Rico MD - Last Filed: 05/07/22 22:05> Patient Disposition: Admitted As Inpatient <Dionne Rico MD - Last Filed: 05/07/22 22:05> Prescriptions: No Action allopurinol 300 mg tablet 300 mg PO DAILY Label Comments: TAKE ONE TABLET BY MOUTH EVERY DAY aspirin 81 mg tablet,delayed release (DR/EC) 81 mg PO DAILY Label Comments: TAKE ONE TABLET BY MOUTH EVERY DAY atorvastatin 40 mg tablet 40 mg PO DAILY Label Comments: TAKE ONE TABLET BY MOUTH EVERY DAY carvedilol 12.5 mg tablet 12.5 mg PO BID Label Comments: TAKE ONE TABLET BY MOUTH TWICE A DAY folic acid 1 mg tablet 1 mg PO DAILY Label Comments: TAKE ONE TABLET BY MOUTH EVERY DAY polyethylene glycol 3350 17 gram/dose powder 17 g PO DAILY Label Comments: GIVE 17GM BY MOUTH ONE TIME A DAY FOR CONSTIPATION MIX WITH 4-8 OUNCES(120- 240CC) OF LIQUID omeprazole 20 mg capsule,delayed release(DR/EC) 20 mg PO DAILY Label Comments: TAKE ONE CAPSULE BY MOUTH EVERY DAY oxycodone-acetaminophen 5-325 mg tablet 1 tab PO Q4H Label Comments: TAKE ONE TABLET BY MOUTH 6 TIMES DAILY sennosides [senna] 8.6 mg tablet 8.6 mg PO DAILY PRN (Reason: constipation) Label Comments: TAKE ONE TABLET BY MOUTH TWICE A DAY sildenafil (pulm.hypertension) 20 mg tablet 20 mg PO TID Label Comments: TAKE ONE TABLET BY MOUTH THREE TIMES DAILY torsemide 20 mg tablet 60 mg PO BID Label Comments: Take 3 tablet by mouth every morning And 3 tabs Q afternoon triamcinolone acetonide 0.1 % cream 1 applic topical BID <Dionne Rico MD - Last Filed: 05/07/22 22:05> Follow Up/Referrals: Ervin Chapin MD [Primary Care Provider] - <Dionne Rico MD - Last Filed: 05/07/22 22:05>
--- NOTE | 2022-05-07 18:46 | CRLHL7_ITS ---
For Patients: As a result of the Cures Act, medical imaging exams and procedure reports are released immediately into your electronic medical record. You may view this report before your referring provider. If you have questions, please contact your health care provider. INDICATION: Shortness of breath, edema. TECHNIQUE: Chest 1 views. COMPARISON: None. FINDINGS: Lungs: Clear lungs. No consolidation. Pleura: No pleural effusion or pneumothorax. Heart and Mediastinum: Notable cardiomegaly. The vessels are unremarkable. Bones: Unremarkable. IMPRESSION: No acute cardiopulmonary disease. Dictated by Aleksander James MD @ 05/07/2022 7:18:58 PM (Electronically Signed)
[2022-05-07] MEDS: FUROSEMIDE 10 MG/ML inj 80 MG IVP (19:10)
[2022-05-07 20:00] LABS: Basophils Absolute Auto 0.03 K/uL (0.00-0.30); Basophils Percent Auto 0.4 % (0.0-3.0); Eosinophils Absolute Auto 0.46 K/uL (0.00-0.50); Eosinophils Percent Auto 6.3 % (0.0-7.0); Hematocrit 39.4 % (37.0-53.0); Immature Granulocytes Abs Auto 0.01 K/uL (0.00-0.30); Immature Granulocytes Pct Auto 0.1 %; Lymphocytes Percent Auto 8.6 % (20-44); Mean Corpuscular HGB Conc 31 gm/dL (32-36); Mean Corpuscular Hemoglobin 28 pg (26-34); Mean Corpuscular Volume 92 fL (80-100); Monocytes Percent Auto 9.5 % (0.0-11.0); Neutrophils Percent Auto 75.1 % (42.0-72.0); Platelet Count* 151 K/uL (140-440); RDW Coefficient of Variation % 17.3 % (11.5-15.5); Red Blood Count 4.28 m/uL (4.30-5.90); Troponin, Point-of-Care* 0.05 ng/ml (0.01-0.04); White Blood Count* 7.36 K/uL (4.50-11.00)
[2022-05-07 20:06] LABS: Slide Review Reflex No
[2022-05-07 20:13] LABS: Alkaline Phosphatase* 138 U/L (40-150); Aspartate Amino Transferase* 28 U/L (12-35); Bilirubin Total* 1.5 mg/dL (0.1-1.5); Carbon Dioxide* 31 mmol/L (20-32); Creatinine* 1.7 mg/dL (0.5-1.5); Estimated Glomerular Filt Rate 40 ml/min; Total Protein* 6.2 g/dL (6.0-8.3)
[2022-05-07 20:14] LABS: Alanine Aminotransferase* 24 U/L (4-50); Blood Urea Nitrogen* 45 mg/dL (7-30); Calcium* 8.5 mg/dL (8.4-10.6); Glucose* 124 mg/dL (60-115); Magnesium* 2.2 mg/dL (1.5-2.6)
[2022-05-07 20:23] LABS: NT Pro B Type NatriureticPept* 3700 PG/mL (0-450)
[2022-05-07 20:25] LABS: SARS PCR* Negative SARS-CoV-2 (Negative)
[2022-05-07 20:26] LABS: Chloride* 101 mmol/L (96-114); Potassium* 3.9 mmol/L (3.6-5.1); Sodium* 139 mmol/L (135-149)
[2022-05-08] VITALS (49 sets, daily range): BP systolic 91–157; BP diastolic 43–113; PULSE 43–76; RESP 20–22; TEMP 36.4–36.7; O2SAT 83–100; BMI 31.9
[2022-05-08] MEDS: OxyCODONE/APAP 5-325 TABLET 1 TAB PO ×4 (03:00→20:56)
[2022-05-08 04:56] LABS: Basophils Absolute Auto 0.02 K/uL (0.00-0.30); Basophils Percent Auto 0.3 % (0.0-3.0); Eosinophils Absolute Auto 0.36 K/uL (0.00-0.50); Hematocrit 38.5 % (37.0-53.0); Hemoglobin* 11.7 gm/dL (13.5-17.5); Immature Granulocytes Abs Auto 0.01 K/uL (0.00-0.30); Immature Granulocytes Pct Auto 0.2 %; Lymphocytes Percent Auto 9.7 % (20-44); Mean Corpuscular HGB Conc 30 gm/dL (32-36); Mean Corpuscular Hemoglobin 28 pg (26-34); Mean Corpuscular Volume 92 fL (80-100); Monocytes Percent Auto 10.7 % (0.0-11.0); Neutrophils Percent Auto 73.1 % (42.0-72.0); Platelet Count* 145 K/uL (140-440); RDW Coefficient of Variation % 17.2 % (11.5-15.5); Red Blood Count 4.19 m/uL (4.30-5.90); White Blood Count* 5.96 K/uL (4.50-11.00)
[2022-05-08 04:58] LABS: Slide Review Reflex No
[2022-05-08 05:15] LABS: Chloride* 103 mmol/L (96-114); Sodium* 140 mmol/L (135-149)
[2022-05-08 05:16] LABS: Potassium* 3.7 mmol/L (3.6-5.1)
[2022-05-08 05:18] LABS: Blood Urea Nitrogen* 44 mg/dL (7-30); Carbon Dioxide* 32 mmol/L (20-32); Creatinine* 1.5 mg/dL (0.5-1.5); Estimated Glomerular Filt Rate 46 ml/min
[2022-05-08 05:19] LABS: Calcium* 8.5 mg/dL (8.4-10.6); Glucose* 105 mg/dL (60-115)
[2022-05-08 05:31] LABS: Troponin I* 0.05 ng/mL (0.01-0.04)
[2022-05-08] MEDS: FUROSEMIDE 10 MG/ML inj 80 MG IVP ×2 (06:15→18:30)
--- NOTE | 2022-05-08 06:24 | ED.NURSE ---
pt readjusted in bed, pillows placed at pt request behind head and at small of back.
--- NOTE | 2022-05-08 08:34 | PC.NURSE ---
spoke with Lianne at [facility] [phone]
[2022-05-08] MEDS: OMEPRAZOLE 20 MG CAPSULE DR PO (10:10)
[2022-05-08] MEDS: TORSEMIDE 20 MG TABLET 60 MG PO ×2 (10:10)
[2022-05-08] MEDS: SENNOSIDES/DOCUSATE TABLET 1 TAB PO (10:10)
[2022-05-08] MEDS: allopurinoL 300 MG TABLET PO (10:10)
[2022-05-08] MEDS: carvediloL 6.25 MG TABLET 12.5 MG PO ×2 (10:10→18:13)
--- NOTE | 2022-05-08 11:36 | PC.SOCIAL ---
Addendum entered by MARK Washington 05/08/22 12:22: [employer] has reviewed and agrees with this note. Original Note: Social work note: [facility] rn case manager hospice Jeanine ([phone]) left social work a message to inquire about pt. Social work returned call and left message informing her that pt. is in the ED, provided ED contact number for further updates. Social work to follow up as needed.
[2022-05-08] MEDS: POTASSIUM CHLORIDE 10 MEQ CAPSULE ER 40 MEQ PO (19:24)
--- NOTE | 2022-05-08 20:15 | P.IMHP_ITS ---
Hospitalist- H&P: HPI History of Present Illness Time Seen by Provider: 18:00 Date Seen: 05/08/22 Chief complaint: Trouble Breathing Fluid on Lungs Narrative: Mac Beckham is a 81 year old man who presents with a 10-14 day history of increasing weights, increasing peripheral edema, increasing dyspnea with exertion. Denies paroxysmal nocturnal dyspnea or orthopnea. Denies chest heaviness, pressure, tightness, or pain. Denies syncope or near-syncope. Den ies nausea or vomiting. Acknowledges eating a diet indiscretion only and does not monitor his sodium intake. About 3 months ago his weight was reportedly 180 lb. Over the course of the last couple of weeks his weight is climb steadily from [address] up to 208 lb yesterday. His sister, Luis Carlos, notice that his face and extremities have become increasingly swollen. She notified the staff at [facility] of her concern and desire for him to be seen by a clinician for assessment of the same. She expresses frustration at they are not listening to her and helping her brother be seen. She indicates she was finally fed up with their unresponsiveness and had a brought in to the emergency department for assessment yesterday evening. Patient has known right-sided heart failure, severe pulmonary hypertension, history of cardiogenic shock for which he was hospitalized from 07/07/2019 through 07/17/2019. Is treated with sildenafil 20 mg 3 times daily. underwent right and left heart catheterization on 07/11/2019 with results consistent with cardiogenic shock, severe pulmonary hypertension (uncertain cause with difficult to measure but elevated PCWP, elevated PAP, equivocal LVEDP) and right heart failure. Testing for HIV was negative, JESUS and rheumatoid factor also negative. Review of Systems Status of ROS: Reports: 10 or more systems reviewed and unremarkable except as noted in History and below Narrative: No recent fevers, rigors, diaphoresis. No recent febrile illnesses. No recent trauma or injury. No recent travel. Resides at [facility] at this time. For the most part lives independently. Receives a lot of support from his sister. [facility] Medical History (Updated 05/08/22 @ 20:49 by Jose Brown MD) Chronic alcoholism in remission Chronic atrial fibrillation Chronic back pain Chronic kidney disease, stage 3 Chronic pain Chronic right-sided heart failure Chronic, continuous use of opioids Cyst of kidney, acquired Degenerative disc disease Essential hypertension Gastroesophageal reflux disease Gout History of deep venous thrombosis or pulmonary embolus History of stroke Hyperlipidemia Hyperparathyroidism Insomnia Osteoarthritis Pulmonary arterial hypertension Social History Highest level of school completed/degree received: 10th grade Smoking Status: Never smoker Do you use any of these nicotine containing products: None Nicotine containing products detail: occasional chewing tobacco Second hand tobacco smoke exposure: No How often do you have a drink containing alcohol: never How often do you have six or more drinks on one occasion: Never AUDIT-C Alcohol total score: 0 Non-prescribed substance use: denies use Caffeine: Yes (occasional diet pepsi) service: No Meds Home Medications and Allergies Home Medications Medication Instructions Recorded Confirmed Type allopurinol 300 mg tablet 300 mg PO DAILY 05/07/22 05/07/22 History aspirin 81 mg tablet,delayed 81 mg PO DAILY 05/07/22 05/07/22 History release atorvastatin 40 mg tablet 40 mg PO DAILY 05/07/22 05/07/22 History carvedilol 12.5 mg tablet 12.5 mg PO BID 05/07/22 05/08/22 History folic acid 1 mg tablet 1 mg PO DAILY 05/07/22 05/07/22 History omeprazole 20 mg capsule,delayed 20 mg PO DAILY 05/07/22 05/07/22 History release oxycodone-acetaminophen 5 mg-325 1 tab PO Q4H pain 05/07/22 05/08/22 History mg tablet polyethylene glycol 3350 17 17 g PO DAILY 05/07/22 05/07/22 History gram/dose oral powder sennosides 8.6 mg tablet (senna) 8.6 mg PO DAILY PRN constipation 05/07/22 05/07/22 History sildenafil (pulm.hypertension) 20 20 mg PO TID 05/07/22 05/08/22 History mg tablet torsemide 20 mg tablet 60 mg PO BID 05/07/22 05/07/22 History triamcinolone acetonide 0.1 % 1 applic topical BID 05/07/22 05/07/22 History topical cream Allergies Allergy/AdvReac Type Severity Reaction Status Date / Time cyclobenzaprine Allergy Unknown Verified 05/07/22 18:24 meloxicam Allergy Unknown Verified 05/07/22 18:24 nitroglycerin Allergy Unknown Verified 05/07/22 18:24 NSAIDS (Non-Steroidal Allergy Unknown Verified 05/07/22 18:24 Anti-Inflamma Exam Narrative: Exam Narrative: Patient is laying in bed with head of bed elevated about 30?, laying on his right side. Appears comfortable and in no acute distress. Slow to respond to certain questions. Looks to his sister to answer some of his questions for him. Friendly, cooperative. Vision and hearing are grossly normal. No conjunctival injection or icterus. Dentition in fair repair. Tight oral aperture. Neck is supple. Midline trachea. Sitting upright he does not have any JVD but does have hepatojugular reflux. Dependent edema pedal E, pretibially, in his thighs, and in the presacral region. Lungs seemingly clear to auscultation. Heart tones with chaotic rhythm but normal S1-S2 soft grade 2/6 systolic murmur. No gallops or rubs. Abdomen with active bowel sounds, soft, nontender. Skin is warm and intact. Cranial nerves 3-12 grossly normal. No tremor or asterixis or ataxia. Moves all 4 extremities. No focal motor neurologic deficits. Const: Vital Signs, click to edit/add: Vital Signs - 24 hr 05/07/22 20:19 05/07/22 20:30 05/07/22 20:53 Temperature Pulse Rate 62 Pulse Rate [Left A pical] Pulse Rate [Pulse Oximeter] 62 Respiratory Rate 25 H Blood Pressure Blood Pressure [Le ft Arm] Blood Pressure [Ri ght Upper Arm] 129/76 Pulse Oximetry 95 88 95 Oxygen Delivery Me thod Room Air Room Air Oxygen Flow Rate 05/07/22 21:00 05/07/22 21:03 05/07/22 21:31 Temperature Pulse Rate 61 59 L 72 Pulse Rate [Left A pical] Pulse Rate [Pulse Oximeter] Respiratory Rate Blood Pressure 115/70 Blood Pressure [Le ft Arm] Blood Pressure [Ri ght Upper Arm] Pulse Oximetry 94 94 93 Oxygen Delivery Me thod Oxygen Flow Rate 05/07/22 21:34 05/07/22 22:01 05/07/22 22:03 Temperature Pulse Rate 59 L 62 64 Pulse Rate [Left A pical] Pulse Rate [Pulse Oximeter] Respiratory Rate Blood Pressure 136/70 139/66 Blood Pressure [Le ft Arm] Blood Pressure [Ri ght Upper Arm] Pulse Oximetry 93 93 96 Oxygen Delivery Me thod Oxygen Flow Rate 05/07/22 22:04 05/07/22 22:30 05/07/22 22:33 Temperature Pulse Rate 58 L 54 L 67 Pulse Rate [Left A pical] Pulse Rate [Pulse Oximeter] Respiratory Rate Blood Pressure 136/55 L Blood Pressure [Le ft Arm] Blood Pressure [Ri ght Upper Arm] Pulse Oximetry 95 96 96 Oxygen Delivery Me thod Oxygen Flow Rate 05/07/22 23:00 05/07/22 23:03 05/07/22 23:30 Temperature Pulse Rate 59 L 54 L 54 L Pulse Rate [Left A pical] Pulse Rate [Pulse Oximeter] Respiratory Rate Blood Pressure 118/102 H Blood Pressure [Le ft Arm] Blood Pressure [Ri ght Upper Arm] Pulse Oximetry 87 L 87 L 95 Oxygen Delivery Me thod Oxygen Flow Rate 05/07/22 23:33 05/08/22 00:00 05/08/22 00:02 Temperature Pulse Rate 51 L 51 L 54 L Pulse Rate [Left A pical] Pulse Rate [Pulse Oximeter] Respiratory Rate Blood Pressure 107/47 L 114/47 L Blood Pressure [Le ft Arm] Blood Pressure [Ri ght Upper Arm] Pulse Oximetry 96 96 92 Oxygen Delivery Me thod Oxygen Flow Rate 05/08/22 00:32 05/08/22 01:03 05/08/22 01:32 Temperature Pulse Rate Pulse Rate [Left A pical] Pulse Rate [Pulse Oximeter] Respiratory Rate Blood Pressure 122/55 L 99/43 L 115/47 L Blood Pressure [Le ft Arm] Blood Pressure [Ri ght Upper Arm] Pulse Oximetry Oxygen Delivery Me thod Oxygen Flow Rate 05/08/22 02:03 05/08/22 02:33 05/08/22 03:03 Temperature Pulse Rate Pulse Rate [Left A pical] Pulse Rate [Pulse Oximeter] Respiratory Rate Blood Pressure 134/65 132/61 130/56 L Blood Pressure [Le ft Arm] Blood Pressure [Ri ght Upper Arm] Pulse Oximetry Oxygen Delivery Me thod Oxygen Flow Rate 05/08/22 03:33 05/08/22 04:03 05/08/22 04:32 Temperature Pulse Rate Pulse Rate [Left A pical] Pulse Rate [Pulse Oximeter] Respiratory Rate Blood Pressure 145/59 H 131/64 140/57 H Blood Pressure [Le ft Arm] Blood Pressure [Ri ght Upper Arm] Pulse Oximetry Oxygen Delivery Me thod Oxygen Flow Rate 05/08/22 05:03 05/08/22 05:32 05/08/22 06:03 Temperature Pulse Rate Pulse Rate [Left A pical] Pulse Rate [Pulse Oximeter] Respiratory Rate Blood Pressure 137/59 L 91/44 L 129/69 Blood Pressure [Le ft Arm] Blood Pressure [Ri ght Upper Arm] Pulse Oximetry Oxygen Delivery Me thod Oxygen Flow Rate 05/08/22 06:14 05/08/22 06:30 05/08/22 06:33 Temperature Pulse Rate 56 L 50 L 73 Pulse Rate [Left A pical] Pulse Rate [Pulse Oximeter] Respiratory Rate Blood Pressure 91/59 L Blood Pressure [Le ft Arm] Blood Pressure [Ri ght Upper Arm] Pulse Oximetry 94 85 L 86 L Oxygen Delivery Me thod Oxygen Flow Rate 05/08/22 07:00 05/08/22 07:04 05/08/22 07:30 Temperature Pulse Rate 43 L 52 L 48 L Pulse Rate [Left A pical] Pulse Rate [Pulse Oximeter] Respiratory Rate Blood Pressure 124/76 Blood Pressure [Le ft Arm] Blood Pressure [Ri ght Upper Arm] Pulse Oximetry 96 83 L 95 Oxygen Delivery Me thod Oxygen Flow Rate 05/08/22 07:32 05/08/22 08:01 05/08/22 08:03 Temperature Pulse Rate 62 51 L Pulse Rate [Left A pical] Pulse Rate [Pulse Oximeter] Respiratory Rate Blood Pressure 126/88 147/68 H Blood Pressure [Le ft Arm] Blood Pressure [Ri ght Upper Arm] Pulse Oximetry 88 95 Oxygen Delivery Me thod Oxygen Flow Rate 05/08/22 08:30 05/08/22 08:33 05/08/22 09:00 Temperature Pulse Rate 55 L 54 L 47 L Pulse Rate [Left A pical] Pulse Rate [Pulse Oximeter] Respiratory Rate Blood Pressure 151/71 H Blood Pressure [Le ft Arm] Blood Pressure [Ri ght Upper Arm] Pulse Oximetry 89 96 94 Oxygen Delivery Me thod Oxygen Flow Rate 05/08/22 09:03 05/08/22 09:30 05/08/22 09:35 Temperature Pulse Rate 47 L 48 L 58 L Pulse Rate [Left A pical] Pulse Rate [Pulse Oximeter] Respiratory Rate Blood Pressure 134/62 150/75 H Blood Pressure [Le ft Arm] Blood Pressure [Ri ght Upper Arm] Pulse Oximetry 96 93 92 Oxygen Delivery Me thod Oxygen Flow Rate 05/08/22 10:00 05/08/22 10:02 05/08/22 10:30 Temperature Pulse Rate 46 L 52 L 43 L Pulse Rate [Left A pical] Pulse Rate [Pulse Oximeter] Respiratory Rate Blood Pressure 145/81 H Blood Pressure [Le ft Arm] Blood Pressure [Ri ght Upper Arm] Pulse Oximetry 99 100 95 Oxygen Delivery Me thod Oxygen Flow Rate 05/08/22 10:33 05/08/22 11:03 05/08/22 11:06 Temperature Pulse Rate 54 L 48 L Pulse Rate [Left A pical] Pulse Rate [Pulse Oximeter] Respiratory Rate Blood Pressure 126/60 108/63 Blood Pressure [Le ft Arm] Blood Pressure [Ri ght Upper Arm] Pulse Oximetry 91 97 Oxygen Delivery Me thod Oxygen Flow Rate 05/08/22 11:30 05/08/22 11:32 05/08/22 12:00 Temperature Pulse Rate 51 L 51 L 52 L Pulse Rate [Left A pical] Pulse Rate [Pulse Oximeter] Respiratory Rate Blood Pressure 125/54 L Blood Pressure [Le ft Arm] Blood Pressure [Ri ght Upper Arm] Pulse Oximetry 97 97 98 Oxygen Delivery Me thod Oxygen Flow Rate 05/08/22 12:03 05/08/22 12:30 05/08/22 12:32 Temperature Pulse Rate 66 50 L 45 L Pulse Rate [Left A pical] Pulse Rate [Pulse Oximeter] Respiratory Rate Blood Pressure 120/55 L 111/51 L Blood Pressure [Le ft Arm] Blood Pressure [Ri ght Upper Arm] Pulse Oximetry 98 91 91 Oxygen Delivery Me thod Oxygen Flow Rate 05/08/22 13:00 05/08/22 13:04 05/08/22 13:30 Temperature Pulse Rate 50 L 51 L 46 L Pulse Rate [Left A pical] Pulse Rate [Pulse Oximeter] Respiratory Rate Blood Pressure 129/72 Blood Pressure [Le ft Arm] Blood Pressure [Ri ght Upper Arm] Pulse Oximetry 97 98 98 Oxygen Delivery Me thod Oxygen Flow Rate 05/08/22 13:32 05/08/22 15:30 05/08/22 17:39 Temperature 97.7 F 97.6 F Pulse Rate 55 L Pulse Rate [Left A pical] 61 76 Pulse Rate [Pulse Oximeter] Respiratory Rate 20 20 Blood Pressure 130/63 Blood Pressure [Le ft Arm] 143/58 H 157/113 H Blood Pressure [Ri ght Upper Arm] Pulse Oximetry 98 94 91 Oxygen Delivery Me thod Nasal Cannula Nasal Cannula Oxygen Flow Rate 3 3 05/08/22 19:27 05/08/22 19:27 Temperature 97.5 F L Pulse Rate Pulse Rate [Left A pical] 60 Pulse Rate [Pulse Oximeter] Respiratory Rate 22 22 Blood Pressure Blood Pressure [Le ft Arm] 123/46 L Blood Pressure [Ri ght Upper Arm] Pulse Oximetry 94 89 Oxygen Delivery Me thod Nasal Cannula Nasal Cannula Oxygen Flow Rate 2 2 Hospitalist - H&P: Result Labs Labs: Short CBC 05/08/22 Range/Units 04:45 WBC 5.96 (4.50-11.00) K/uL Hgb 11.7 L (13.5-17.5) gm/dL Hct 38.5 (37.0-53.0) % Plt Count 145 (140-440) K/uL [facility] 05/07/22 05/08/22 19:47 04:45 Sodium 139 140 Potassium 3.9 3.7 Chloride 101 103 Carbon Dioxide 31 32 BUN 45 H 44 H Creatinine 1.7 H 1.5 Glucose 124 H 105 Calcium 8.5 8.5 Cardiac Enzymes 05/08/22 Range/Units 04:45 Troponin I 0.05 H (0.01-0.04) ng/mL Liver Function 05/07/22 Range/Units 19:47 Total Bilirubin 1.5 (0.1-1.5) mg/dL AST 28 (12-35) U/L ALT 24 (4-50) U/L Alkaline Phosphatase 138 (40-150) U/L Albumin 4.0 (3.3-5.0) g/dL Imaging Echo: Radiologist's impression: Preliminary report demonstrates atrial fibrillation. Low normal LV function. Small pericardial effusion. Left atrial enlargement. Mild mitral regurgitation. Severe tricuspid regurgitation. Right ventricular enlargement with decreased right ventricular function. Increased right ventricular systolic pressure is estimated at 88 mmHg plus right atrial pressure. Dilated IVC. Assessment and Plan Assessment and plan (1) Acute right-sided congestive heart failure: Status: Acute (2) Pulmonary arterial hypertension: Status: Acute (3) Severe tricuspid valve regurgitation: Status: Acute (4) Chronic right-sided heart failure: Status: Acute (5) Chronic atrial fibrillation: Status: Acute (6) Chronic back pain: Problem comment: According to patient, subsequent to back surgery Status: Acute (7) Chronic, continuous use of opioids: Status: Acute Plan 1. Reviewed my impression with patient and his sister. 2. Answered their questions. 3. Recommended admission to the hospital for acute care. 4. Diuresis efforts and monitor response. Concurrently decreased sodium consumption. Will need teaching in regard to decreasing sodium consumption. 5. Will need outpatient follow-up with Cardiology and possibly with pulmonology as well. Depending on the Cardiology and pulmonology assessments may need to consider palliative care measures. 6. Continue with other supportive efforts. 7. Will need dietary consultation in regard to low-sodium diet. 8. Patient and sister are agreeable to above stated plans and recommendations.
[2022-05-08] MEDS: SILDENAFIL CITRATE 20 MG TABLET 25 MG PO (21:00)
--- NOTE | 2022-05-08 22:57 | PC.NURSE ---
Shift Note: 2L/O2 to keep SpO2 92%. Echo this afternoon. +3 pitting edema to LE's bilaterally, legs elevated, SAFIA's applied. LS coarse and pt exhibits intermittent moist/nonproductive cough. Rates low back pain 5/10, scheduled pain meds given. One time order obtained for 25mg Sildenafil as pharmacy stocks 50 or 100. Sister offered to bring pt's home med sometime tomorrow.
[2022-05-09] MEDS: OxyCODONE/APAP 5-325 TABLET 1 TAB PO ×6 (02:02→20:05)
[2022-05-09 02:24] VITALS: BP 154/71; PULSE 67; RESP 20; TEMP 36.8; O2SAT 93
--- NOTE | 2022-05-09 06:48 | PC.NURSE ---
23-07: A x 1 with gb and walker. pt uses urinal indep. Pt has tendency to lean towards the right, several pillows placed to aid in posture. 3+ pitting edema to bilat LE, extremities elevated. Pt on 2L O2 via NC and maintaining in low 90s.
[2022-05-09 07:00] VITALS: BP 135/57; PULSE 66; RESP 20; RESP 24; TEMP 36.8; O2SAT 91
[2022-05-09 07:11] LABS: Hematocrit 41.6 % (37.0-53.0); Hemoglobin* 12.5 gm/dL (13.5-17.5); Mean Corpuscular HGB Conc 30 gm/dL (32-36); Mean Corpuscular Hemoglobin 28 pg (26-34); Mean Corpuscular Volume 93 fL (80-100); Platelet Count* 149 K/uL (140-440); Red Blood Count 4.48 m/uL (4.30-5.90); White Blood Count* 7.81 K/uL (4.50-11.00)
[2022-05-09 07:17] LABS: Chloride* 101 mmol/L (96-114); Potassium* 4.2 mmol/L (3.6-5.1); Sodium* 142 mmol/L (135-149)
[2022-05-09 07:19] LABS: Creatinine* 1.5 mg/dL (0.5-1.5); Est. Creatinine Clearance* 34.85; Estimated Glomerular Filt Rate 46 ml/min
[2022-05-09 07:20] LABS: Blood Urea Nitrogen* 42 mg/dL (7-30); Calcium* 8.9 mg/dL (8.4-10.6); Carbon Dioxide* 34 mmol/L (20-32); Glucose* 96 mg/dL (60-115); Magnesium* 2.4 mg/dL (1.5-2.6)
[2022-05-09 07:33] LABS: NT Pro B Type NatriureticPept* 4030 PG/mL (0-450)
[2022-05-09 07:45] LABS: Slide Review Acceptable Review (Acceptable); Slide Review Reflex Yes
[2022-05-09] MEDS: TORSEMIDE 20 MG TABLET 60 MG PO (08:09)
[2022-05-09] MEDS: FUROSEMIDE 10 MG/ML inj 80 MG IVP ×2 (08:09→15:45)
[2022-05-09] MEDS: carvediloL 6.25 MG TABLET 12.5 MG PO ×2 (08:09→17:48)
[2022-05-09] MEDS: OMEPRAZOLE 20 MG CAPSULE DR PO (08:58)
[2022-05-09] MEDS: SENNOSIDES/DOCUSATE TABLET 1 TAB PO (08:58)
[2022-05-09] MEDS: ASPIRIN 81 MG TABLET EC PO (08:58)
[2022-05-09] MEDS: ATORVASTATIN CALCIUM 40 MG TABLET PO (08:58)
[2022-05-09] MEDS: allopurinoL 300 MG TABLET PO (08:58)
[2022-05-09] MEDS: polyethylene glycoL 3350 17 GM PACK PO (09:00)
[2022-05-09] MEDS: FOLIC ACID 1 MG TABLET PO (09:00)
[2022-05-09 11:00] VITALS: BP 131/58; PULSE 58; RESP 22; TEMP 36.8; O2SAT 92
--- NOTE | 2022-05-09 11:43 | REH.PT ---
PT Note PT attempted to see patient for evaluation morning of 05/09/22, patient refused therapy. See OT eval regarding patient's prior level of function and living situation.
[2022-05-09 15:00] VITALS: BP 124/59; PULSE 58; RESP 22; TEMP 36.7; O2SAT 91
[2022-05-09] MEDS: SILDENAFIL CITRATE 20 MG TABLET PO ×2 (15:45→20:05)
--- NOTE | 2022-05-09 16:57 | PM.IMPN1 ---
Progress Note: A&P Assessment and plan (1) Acute right-sided congestive heart failure: Problem details: Weight: 89.6 kg 05/08/2022; 88.9 kg 05/09/2022 Status: Acute Assessment and Plan: 1. Continue was twice daily furosemide 80 mg IV 2. Continue to monitor electrolytes 3. Continue to monitor orthostatic blood pressures and pulses 4. Continue to monitor daily weights (2) Chronic right-sided heart failure: Status: Acute (3) Pulmonary arterial hypertension: Problem details: Sildenafil 20 mg 3 times daily Status: Acute (4) Severe tricuspid valve regurgitation: Problem details: May need to consider possible valve replacement therapy with cardiology consultation in outpatient setting Status: Acute (5) Chronic atrial fibrillation: Problem details: Continue with current rate control efforts and anticoagulation efforts Status: Acute (6) Chronic back pain: Problem details: According to patient, subsequent to back surgery Status: Acute (7) Chronic, continuous use of opioids: Status: Acute Plan 1. Continue with IV furosemide for now. 2. At some point time we could consider transitioning to oral torsemide twice daily. 3. Continue with the low-sodium diet. Await dietitian consultation with patient and his sister. Time Spent With Patient Total time spent: 40 minutes Subjective Time Seen by Provider: 13:30 Date Seen: 05/09/22 Interval history: 81-year-old man with severe pulmonary hypertension presents with acute exacerbation chronic right-sided ventricular heart failure. History of hepatics cirrhosis. Presumably pulmonary hypertension related to consequence of portal hypertension. Tolerating increased diuresis efforts. Notes less dyspnea. Notes less edema peripherally. He is satisfied with progress. Denies chest heaviness, pressure, tightness, or pain. Denies syncope or near-syncope. Denies orthostasis. Denies lightheadedness. Denies nausea or vomiting. Denies palpitations or chest fluttering. Tells me he did not sleep well because of his bed. Exam Narrative: Exam Narrative: Awake, alert, oriented to self, place, time, and in part to situation. Does not seem to comprehend the severity of his underlying condition. He is more concerned about being able to find channels on the television that he is to talk with me about his condition. Articulate, cooperative, friendly. While sitting upright does not have JVD but does have hepatojugular reflux. Lungs with decreased breath sounds in bases with some end inspiratory rales otherwise clear to auscultation without wheezing or rhonchi. Heart tones with chaotic rhythm, normal S1-S2, PMI not laterally displaced. Abdomen with active bowel sounds, soft, nontender. Extremities still with pitting edema of lower extremities all the way up to the presacral area. Skin is warm, dry, intact. No jaundice, petechiae, or rashes. No focal motor neurologic deficits. Const: Vital Signs, click to edit/add: Vital Signs - 24 hr 05/08/22 17:39 05/08/22 19:27 05/08/22 19:27 Temperature 97.6 F 97.5 F L Pulse Rate [Left A pical] 76 60 Respiratory Rate 20 22 22 Blood Pressure [Le ft Arm] 157/113 H 123/46 L Pulse Oximetry 91 94 89 Oxygen Delivery Me thod Nasal Cannula Nasal Cannula Nasal Cannula Oxygen Flow Rate 3 2 2 05/08/22 23:00 05/08/22 23:00 05/08/22 23:00 Temperature 98.1 F Pulse Rate [Left A pical] 66 66 Respiratory Rate 20 20 20 Blood Pressure [Le ft Arm] 157/73 H Pulse Oximetry 92 92 Oxygen Delivery Me thod Nasal Cannula Nasal Cannula Oxygen Flow Rate 2 2 05/09/22 02:24 05/09/22 07:00 05/09/22 07:00 Temperature 98.3 F Pulse Rate [Left A pical] 67 66 Respiratory Rate 20 20 24 Blood Pressure [Le ft Arm] 154/71 H Pulse Oximetry 93 91 Oxygen Delivery Me thod Nasal Cannula Nasal Cannula Oxygen Flow Rate 2 2 05/09/22 07:00 05/09/22 11:00 05/09/22 15:00 Temperature 98.2 F 98.3 F Pulse Rate [Left A pical] 66 58 L Respiratory Rate 24 22 22 Blood Pressure [Le ft Arm] 135/57 L 131/58 L Pulse Oximetry 91 92 91 Oxygen Delivery Me thod Nasal Cannula Nasal Cannula Room Air Oxygen Flow Rate 2 1 05/09/22 15:00 05/09/22 15:00 Temperature 98.1 F Pulse Rate [Left A pical] 58 L 58 L Respiratory Rate 22 22 Blood Pressure [Le ft Arm] 124/59 L Pulse Oximetry 91 Oxygen Delivery Me thod Room Air Oxygen Flow Rate Labs Labs: Laboratory Results - last 24 hr 05/09/22 05/09/22 05/09/22 05:46 05:46 05:46 WBC 7.81 RBC 4.48 Hgb 12.5 L Hct 41.6 MCV 93 MCH 28 MCHC 30 L Plt Count 149 Diff Slide Review Acceptable Review Sodium 142 Potassium 4.2 Chloride 101 Carbon Dioxide 34 H BUN 42 H Creatinine 1.5 Estimated Creat Clear 34.85 Estimated GFR 46 Glucose 96 Calcium 8.9 Magnesium 2.4 NT-Pro-B Natriuret Pep 4030 H TSH 2.640
[2022-05-09 19:00] VITALS: BP 118/82; PULSE 64; RESP 22; TEMP 36.6; O2SAT 90
--- NOTE | 2022-05-09 22:44 | PC.NURSE ---
Shift Note: Pt friendly and cooperative. Moves well with assist x1 with GB and walker. Ambulated approx 75 ft outside his room this afternoon but required 2L/O2 via NC and SpO2 did begin dropping to 83% and the end of the walk. Pt did rebound quickly with rest/positioning. Denies feeling SOB. Rates pain 5/10 to low back. States this is chronic and interventions provide minimal relief. Scheduled medications and ice pack given as well as repositioning. LE edema markedly improved and legs elevated.
[2022-05-09 23:00] VITALS: BP 144/51; PULSE 46; RESP 16; TEMP 36.4; O2SAT 93
[2022-05-10] MEDS: OxyCODONE/APAP 5-325 TABLET 1 TAB PO ×6 (02:05→21:57)
[2022-05-10 03:00] VITALS: BP 150/51; PULSE 49; RESP 20; TEMP 36.4; O2SAT 94
--- NOTE | 2022-05-10 05:31 | PC.NURSE ---
END OF SHIFT NOTE: PT PLEASANT AND COOPERATIVE WITH CARES. REPORTS BACK PAIN 5/10 WITH TEMPORARY RELIEF FROM SCHEDULED PAIN RELIEVER (SEE MAR). VSS ON 1L NC. AFEBRILE. PT DENIES CP, SOB, N/V.?
[2022-05-10 06:58] LABS: Albumin* 3.6 g/dL (3.3-5.0); Chloride* 98 mmol/L (96-114); Potassium* 3.5 mmol/L (3.6-5.1); Sodium* 139 mmol/L (135-149)
[2022-05-10 07:00] VITALS: BP 174/92; PULSE 63; RESP 20; RESP 22; TEMP 36.5; O2SAT 90; O2SAT 94
[2022-05-10 07:01] LABS: Blood Urea Nitrogen* 43 mg/dL (7-30); Carbon Dioxide* 34 mmol/L (20-32); Creatinine* 1.5 mg/dL (0.5-1.5); Est. Creatinine Clearance* 34.85; Estimated Glomerular Filt Rate 46 ml/min; Glucose* 90 mg/dL (60-115)
[2022-05-10 07:02] LABS: Calcium* 8.4 mg/dL (8.4-10.6); Magnesium* 2.3 mg/dL (1.5-2.6); Phosphorus* 3.5 mg/dL (2.5-4.5)
[2022-05-10] MEDS: TORSEMIDE 20 MG TABLET 60 MG PO (07:58)
[2022-05-10] MEDS: FUROSEMIDE 10 MG/ML inj 80 MG IVP ×2 (07:58→13:54)
[2022-05-10] MEDS: carvediloL 6.25 MG TABLET 12.5 MG PO ×2 (07:58→19:18)
[2022-05-10] MEDS: polyethylene glycoL 3350 17 GM PACK PO (09:16)
[2022-05-10] MEDS: FOLIC ACID 1 MG TABLET PO (09:16)
[2022-05-10] MEDS: SENNOSIDES/DOCUSATE TABLET 1 TAB PO (09:16)
[2022-05-10] MEDS: ASPIRIN 81 MG TABLET EC PO (09:16)
[2022-05-10] MEDS: allopurinoL 300 MG TABLET PO (09:16)
[2022-05-10] MEDS: ATORVASTATIN CALCIUM 40 MG TABLET PO (09:16)
[2022-05-10] MEDS: OMEPRAZOLE 20 MG CAPSULE DR PO (09:16)
[2022-05-10] MEDS: SILDENAFIL CITRATE 20 MG TABLET PO ×3 (09:21→20:50)
[2022-05-10 11:00] VITALS: BP 136/67; PULSE 54; RESP 22; TEMP 36.5; O2SAT 94
[2022-05-10] MEDS: POTASSIUM CHLORIDE 10 MEQ CAPSULE ER 20 MEQ PO ×2 (11:03→14:44)
[2022-05-10 15:00] VITALS: BP 119/53; PULSE 52; RESP 22; TEMP 36.6; O2SAT 95
--- NOTE | 2022-05-10 16:40 | PM.IMPN1 ---
Progress Note: A&P Assessment and plan (1) Acute right-sided congestive heart failure: Problem details: Weight: 89.6 kg 05/08/2022; 88.9 kg 05/09/2022; 89.9 kg 05/10/2022 Status: Acute (2) Chronic right-sided heart failure: Status: Acute Assessment and Plan: Currently he still receiving furosemide 80 mg IV twice daily. Will attempt to switch to torsemide 80 mg orally twice daily tomorrow. Adding a potassium supplementation. Continue to monitor. (3) Pulmonary arterial hypertension: Problem details: Sildenafil 20 mg 3 times daily Status: Acute (4) Severe tricuspid valve regurgitation: Problem details: May need to consider possible valve replacement therapy with cardiology consultation in outpatient setting Status: Acute (5) Chronic atrial fibrillation: Problem details: Continue with current rate control efforts and anticoagulation efforts Status: Acute (6) Chronic back pain: Problem details: According to patient, subsequent to back surgery Status: Acute (7) Chronic, continuous use of opioids: Status: Acute Plan 1. Reviewed with patient 2. Continue with current plans as specified above it is presently instituted. 3. Need to see that he is not only benefitting from but also tolerating a home going regimen before we can consider discharging him. Time Spent With Patient Total time spent: 30 minutes Subjective Time Seen by Provider: 14:00 Date Seen: 05/10/22 Interval history: 81-year-old man with severe pulmonary hypertension presents with acute exacerbation chronic right-sided ventricular heart failure. History of hepatics cirrhosis. Presumably pulmonary hypertension related to underlying portal hypertension. Tolerating increased diuresis efforts. Notes less dyspnea. Notes less edema peripherally. He is satisfied with progress. Denies chest heaviness, pressure, tightness, or pain. Denies syncope or near-syncope. Denies orthostasis. Denies lightheadedness. Denies nausea or vomiting. Denies palpitations or chest fluttering. Tells me he did not sleep well because of his bed. Exam Narrative: Exam Narrative: His weight today measured at 89.9 kg. Yesterday's weight was 88.8 kg. Day prior weight was 89.6 kg. Appears comfortable and in no acute distress. Sitting in recliner chair watching the [employer] game. Alert and oriented to self, place, time and situation. Articulate and cooperative. Lungs clear for the most part save some fine end inspiratory rales bilaterally. Heart tones with regular rhythm, normal S1-S2. Abdomen obese with active bowel sounds, soft, nontender. Extremities with trace edema up to the thighs and into the presacral area. Skin otherwise intact. Moves all 4 extremities. No focal motor neurologic deficits. No tremor or asterixis or ataxia. Const: Vital Signs, click to edit/add: Vital Signs - 24 hr 05/09/22 19:00 05/09/22 23:00 05/09/22 23:00 Temperature 97.8 F Pulse Rate [Left A pical] 64 46 L Pulse Rate [Pulse Oximeter] Respiratory Rate 22 16 16 Blood Pressure [Le ft Arm] 118/82 Pulse Oximetry 90 93 Oxygen Delivery Me thod Nasal Cannula Nasal Cannula Oxygen Flow Rate 1 1 05/09/22 23:00 05/10/22 03:00 05/10/22 07:00 Temperature 97.6 F 97.6 F Pulse Rate [Left A pical] Pulse Rate [Pulse Oximeter] 46 L 49 L 63 Respiratory Rate 16 20 22 Blood Pressure [Le ft Arm] 144/51 H 150/51 H Pulse Oximetry 93 94 Oxygen Delivery Me thod Nasal Cannula Nasal Cannula Oxygen Flow Rate 1 1 05/10/22 07:00 05/10/22 07:00 05/10/22 11:00 Temperature 97.7 F 97.7 F Pulse Rate [Left A pical] Pulse Rate [Pulse Oximeter] 63 54 L Respiratory Rate 20 22 22 Blood Pressure [Le ft Arm] 174/92 H 136/67 Pulse Oximetry 94 90 94 Oxygen Delivery Me thod Nasal Cannula Nasal Cannula Nasal Cannula Oxygen Flow Rate 1 1 1 05/10/22 15:00 05/10/22 15:00 05/10/22 15:00 Temperature 97.9 F Pulse Rate [Left A pical] Pulse Rate [Pulse Oximeter] 52 L 52 L Respiratory Rate 22 22 22 Blood Pressure [Le ft Arm] 119/53 L Pulse Oximetry 95 95 Oxygen Delivery Me thod Nasal Cannula Nasal Cannula Oxygen Flow Rate 1 1 Labs Labs: Laboratory Results - last 24 hr 05/10/22 05:41 Sodium 139 Potassium 3.5 L Chloride 98 Carbon Dioxide 34 H BUN 43 H Creatinine 1.5 Estimated Creat Clear 34.85 Estimated GFR 46 Glucose 90 Calcium 8.4 Phosphorus 3.5 Magnesium 2.3 Albumin 3.6
--- NOTE | 2022-05-10 18:57 | PC.NURSE ---
Shift Note: Potassium added to pt's eMar per MD as he continues IVP Lasix. Moving well with assist x1 and LE edema improved, now about +2. 2 large BM's today, soft and formed. VSS, attempted to wean pt to RA today but he desats to low 80's and has required 1L/O2 to maintain Spo2 87% or higher per order. Continues to rates low back pain 5/10, re-positioning, scheduled pain meds, and ice used for management.
[2022-05-10 19:00] VITALS: BP 135/60; PULSE 53; RESP 20; TEMP 36.4; O2SAT 93
[2022-05-10] MEDS: SODIUM CHLORIDE 0.9 % (FLUSH) 10 ML SYRINGE 5 ML IVF (20:49)
[2022-05-10 23:00] VITALS: BP 150/68; PULSE 54; RESP 20; TEMP 36.1; O2SAT 95
[2022-05-11] VITALS (9 sets, daily range): BP systolic 131–168; BP diastolic 63–90; PULSE 54–85; RESP 18–20; TEMP 36.4–36.9; O2SAT 92–95
[2022-05-11] MEDS: OxyCODONE/APAP 5-325 TABLET 1 TAB PO ×6 (02:03→22:29)
--- NOTE | 2022-05-11 05:33 | PC.NURSE ---
[id number] Pt slept intermittently during night, required 1LPM O2 NC to maintain sats >90%. Pain 5-10/10 regardless of scheduled medications administered. Pt did not get out of bed this shift, used urinal at bedside, encouraged patient to reposition and move but pt declined. Denies SOB at rest, chest pain or difficulty breathing.
[2022-05-11 07:19] LABS: Potassium* 4.8 mmol/L (3.6-5.1)
[2022-05-11 07:38] LABS: Creatinine* 1.7 mg/dL (0.5-1.5); Est. Creatinine Clearance* 30.75; Estimated Glomerular Filt Rate 40 ml/min
[2022-05-11] MEDS: SILDENAFIL CITRATE 20 MG TABLET PO ×3 (08:39→21:01)
[2022-05-11] MEDS: polyethylene glycoL 3350 17 GM PACK PO (08:39)
[2022-05-11] MEDS: TORSEMIDE 20 MG TABLET 80 MG PO ×2 (08:40→14:06)
[2022-05-11] MEDS: POTASSIUM CHLORIDE 10 MEQ CAPSULE ER 20 MEQ PO (08:40)
[2022-05-11] MEDS: allopurinoL 300 MG TABLET PO (08:40)
[2022-05-11] MEDS: SENNOSIDES/DOCUSATE TABLET 1 TAB PO (08:41)
[2022-05-11] MEDS: carvediloL 6.25 MG TABLET 12.5 MG PO ×2 (08:41→17:38)
[2022-05-11] MEDS: ATORVASTATIN CALCIUM 40 MG TABLET PO (08:41)
[2022-05-11] MEDS: ASPIRIN 81 MG TABLET EC PO (08:41)
[2022-05-11] MEDS: OMEPRAZOLE 20 MG CAPSULE DR PO (08:41)
[2022-05-11] MEDS: SODIUM CHLORIDE 0.9 % (FLUSH) 10 ML SYRINGE 5 ML IVF ×2 (08:42→21:01)
[2022-05-11] MEDS: FOLIC ACID 1 MG TABLET PO (08:42)
--- NOTE | 2022-05-11 13:32 | NUTR.NU ---
SAPPHIRE with MD consult for heart failure. RDN visited with patient and designated caregiver whom (Luis Carlos) reported patient lives in an assisted living facility and eats meals there. Designated caregiver has had diet education in the past for patient's diet. Luis Carlos reports patient can only receive Regular meals at the assisted living where patient lives due to them not offering therapeutic diets such as 2gm sodium/low sodium. Luis Carlos reports she is going to try to make patient more CHF-friendly meals at home and provide leftovers for patient to heat in microwave in his room. Luis Carlos accepted educational materials related to CHF ( Handouts provided from [facility] on heart failure nutrition therapy, sodium content of foods, heart healthy label reading tips, sodium-free flavoring tips and heart healthy cooking and shopping tips). Patient and designated caregier had no questions or concerns at this time. RDN's contact information was provided and patient was encouraged to call with questions.
[2022-05-11 16:28] LABS: Blood Urea Nitrogen* 42 mg/dL (7-30)
--- NOTE | 2022-05-11 18:08 | PC.NURSE ---
End of Shift Note: Patient appears to be down today. Was discussing how his heart is not working like it should. The provider was just in and did discuss with him about starting a new medication. Has been up in the recliner most of today. Did try to see if he wanted to lay in bed for a while but has decline. Is ambulating to the BR with SBA. Will continue to monitor.
--- NOTE | 2022-05-11 19:53 | PM.IMPN1 ---
Progress Note: A&P Assessment and plan (1) Acute right-sided congestive heart failure: Problem details: Weight: 89.6 kg 05/08/2022; 88.9 kg 05/09/2022; 89.9 kg 05/10/2022; 89.2 kg 05/11/2022 Status: Acute Assessment and Plan: We switched from IV furosemide to oral torsemide. Prior to presentation patient had been on torsemide 60 mg twice daily. We increased it to torsemide 80 mg twice daily. Is on sildenafil 20 mg 3 times daily. Is on carvedilol 12.5 mg twice daily. Consider increasing dose. Is on losartan 25 mg once daily. Consider increasing the dose. (2) Chronic right-sided heart failure: Status: Acute (3) Pulmonary arterial hypertension: Problem details: Sildenafil 20 mg 3 times daily Status: Acute (4) Severe tricuspid valve regurgitation: Problem details: May need to consider possible valve replacement therapy with cardiology consultation in outpatient setting Status: Acute (5) Chronic atrial fibrillation: Problem details: Continue with current rate control efforts and anticoagulation efforts Status: Acute (6) Chronic back pain: Problem details: According to patient, subsequent to back surgery Status: Acute (7) Chronic, continuous use of opioids: Status: Acute Plan Luis discussion with patient and his sister today. Reviewed how the patient's creatinine is starting to creep up with our efforts now. Suggested that the patient is not tolerating our efforts to diurese him beyond what we are currently achieving. At some point possibly in the near future may need to consider palliative, hospice cares. They expressed understanding and desire to proceed nonetheless. Continue with current efforts. There hope is to have him return to his assisted living setting. Time Spent With Patient Total time spent: 40 minutes Subjective Time Seen by Provider: 12:30 Date Seen: 05/11/22 Interval history: Hospital day 5. 81-year-old man with severe pulmonary hypertension presents with acute exacerbation chronic right-sided ventricular heart failure. History of hepatics cirrhosis. Presumably pulmonary hypertension related to underlying portal hypertension. Tolerating increased diuresis efforts. Notes less dyspnea. Notes less edema peripherally. He is satisfied with progress. Denies chest heaviness, pressure, tightness, or pain. Denies syncope or near-syncope. Denies orthostasis. Denies lightheadedness. Denies nausea or vomiting. Denies palpitations or chest fluttering. Tells me he did not sleep well because of his bed. Exam Const: Vital Signs, click to edit/add: Vital Signs - 24 hr 05/10/22 23:00 05/10/22 23:00 05/10/22 23:00 Temperature 97.0 F L Pulse Rate [Pulse Oximeter] 54 L 54 L Respiratory Rate 20 20 20 Blood Pressure [Le ft Arm] 150/68 H Pulse Oximetry 95 95 Oxygen Delivery Me thod Nasal Cannula Nasal Cannula Oxygen Flow Rate 1 1 05/11/22 02:27 05/11/22 07:00 05/11/22 07:00 Temperature 97.5 F L Pulse Rate [Pulse Oximeter] 63 63 Respiratory Rate 20 20 20 Blood Pressure [Le ft Arm] 151/63 H Pulse Oximetry 95 94 Oxygen Delivery Me thod Nasal Cannula Nasal Cannula Oxygen Flow Rate 1 1 05/11/22 07:00 05/11/22 11:00 05/11/22 15:06 Temperature 98.0 F 98.4 F 98.0 F Pulse Rate [Pulse Oximeter] 63 56 L 85 Respiratory Rate 20 20 18 Blood Pressure [Le ft Arm] 168/90 H 153/71 H 154/68 H Pulse Oximetry 94 93 94 Oxygen Delivery Me thod Nasal Cannula Nasal Cannula Nasal Cannula Oxygen Flow Rate 1 1 1 05/11/22 15:00 05/11/22 15:00 05/11/22 19:14 Temperature 98 F Pulse Rate [Pulse Oximeter] 85 85 Respiratory Rate 18 20 Blood Pressure [Le ft Arm] 131/76 Pulse Oximetry 94 93 Oxygen Delivery Me thod Nasal Cannula Nasal Cannula Oxygen Flow Rate 1 1 Labs Labs: Laboratory Results - last 24 hr 05/11/22 06:16 Potassium 4.8 BUN 42 H Creatinine 1.7 H Estimated Creat Clear 30.75 Estimated GFR 40 Imaging Echo: Radiologist's impression: 1. Mildly increased left ventricular chamber size, mildly increased wall thickness, low normal global systolic function with calculated EF of 50%. 2. Right ventricular cavity size is moderately enlarged, global systolic right ventricular function is mildly reduced. 3. Right ventricular volume and pressure overload. 4. Severe biatrial enlargement. 5. Severe tricuspid room valve regurgitation. 6. Pulmonary artery is moderately dilated. 7. Aortic valve is calcified and trileaflet with no stenosis and mild regurgitation. 8. Severely increased estimated pulmonary pressures (94 mmHg, inclusive of right atrial pressure estimated at 15 mmHg). This is higher than the last echocardiogram from June of 2019. 9. Small pericardial effusion.
[2022-05-12] VITALS (8 sets, daily range): BP systolic 101–161; BP diastolic 47–96; PULSE 52–61; RESP 18–20; TEMP 36.4–36.8; O2SAT 85–93
[2022-05-12] MEDS: OxyCODONE/APAP 5-325 TABLET 1 TAB PO ×6 (02:23→21:57)
--- NOTE | 2022-05-12 03:42 | PC.NURSE ---
: Pt resting well in the bed, has been voiding a lot this shift, weaned off oxygen, vss, denies sob, will obtain weight.
[2022-05-12] MEDS: TORSEMIDE 20 MG TABLET 80 MG PO ×2 (07:55→14:23)
[2022-05-12] MEDS: carvediloL 6.25 MG TABLET 12.5 MG PO ×2 (07:55→17:50)
[2022-05-12 08:02] LABS: Chloride* 100 mmol/L (96-114); Sodium* 140 mmol/L (135-149)
[2022-05-12 08:03] LABS: Potassium* 3.8 mmol/L (3.6-5.1)
[2022-05-12 08:05] LABS: Blood Urea Nitrogen* 38 mg/dL (7-30); Carbon Dioxide* 33 mmol/L (20-32); Creatinine* 1.3 mg/dL (0.5-1.5); Est. Creatinine Clearance* 40.22; Estimated Glomerular Filt Rate 55 ml/min
[2022-05-12 08:06] LABS: Calcium* 8.6 mg/dL (8.4-10.6); Glucose* 95 mg/dL (60-115); Magnesium* 2.3 mg/dL (1.5-2.6); Phosphorus* 3.3 mg/dL (2.5-4.5)
[2022-05-12 08:14] LABS: NT Pro B Type NatriureticPept* 3840 PG/mL (0-450)
[2022-05-12] MEDS: allopurinoL 300 MG TABLET PO (08:54)
[2022-05-12] MEDS: SENNOSIDES/DOCUSATE TABLET 1 TAB PO (08:54)
[2022-05-12] MEDS: ATORVASTATIN CALCIUM 40 MG TABLET PO (08:54)
[2022-05-12] MEDS: FOLIC ACID 1 MG TABLET PO (08:54)
[2022-05-12] MEDS: OMEPRAZOLE 20 MG CAPSULE DR PO (08:54)
[2022-05-12] MEDS: ASPIRIN 81 MG TABLET EC PO (08:54)
[2022-05-12] MEDS: POTASSIUM CHLORIDE 10 MEQ CAPSULE ER 20 MEQ PO (08:55)
[2022-05-12] MEDS: SODIUM CHLORIDE 0.9 % (FLUSH) 10 ML SYRINGE 5 ML IVF ×2 (10:21→20:57)
[2022-05-12] MEDS: polyethylene glycoL 3350 17 GM PACK PO (10:26)
[2022-05-12] MEDS: SILDENAFIL CITRATE 20 MG TABLET PO ×3 (10:36→20:56)
[2022-05-12] MEDS: LOSARTAN 25 MG TABLET PO ×2 (12:11→14:22)
--- NOTE | 2022-05-12 14:40 | PC.NURSE ---
REDDENED GROIN, NYSTATIN ORDERED. SBA X1 WITH WALKER AND GB - SM BM TODAY. CONTINUE WITH DIURESIS WITH TORSEMIDE BID, PT USING URINAL AT BEDSIDE/CHAIR. ALSO UP TO BR MULTIPLE TIMES. URINE CLEAR AND YELLOW.
--- NOTE | 2022-05-12 19:39 | P.IMPN_ITS ---
Progress Note: A&P Assessment and plan (1) Acute right-sided congestive heart failure: Problem details: Weight: 89.6 kg 05/08/2022; 88.9 kg 05/09/2022; 89.9 kg 05/10/2022; 89.2 kg 05/11/2022; 88 kg 05/12/2022 Status: Acute Assessment and Plan: Creatinine today down to 1.5. Yesterday was 1.7. Will continue on current medication regimen as presently instituted. Consider additional dose adjustments in the future. (2) Chronic right-sided heart failure: Status: Acute (3) Pulmonary arterial hypertension: Problem details: Sildenafil 20 mg 3 times daily Status: Acute (4) Severe tricuspid valve regurgitation: Problem details: May need to consider possible valve replacement therapy with cardiology consultation in outpatient setting Status: Acute (5) Chronic atrial fibrillation: Problem details: Continue with current rate control efforts and anticoagulation efforts Status: Acute (6) Chronic back pain: Problem details: According to patient, subsequent to back surgery Status: Acute (7) Chronic, continuous use of opioids: Status: Acute Plan 1. Were finally achieving some stability. 2. Anticipate patient may be in a position to possibly be discharged back to the assisted living center as early as tomorrow if his condition continues to be stable. Time Spent With Patient Total time spent: 40 minutes Subjective Time Seen by Provider: 13:00 Date Seen: 05/12/22 Interval history: Hospital day 6. 81-year-old man with severe pulmonary hypertension presents with acute exac erbation chronic right-sided ventricular heart failure. History of hepatics cirrhosis. Presumably pulmonary hypertension related to underlying portal hypertension. Tolerating increased diuresis efforts. Notes less dyspnea. Notes less edema peripherally. He is satisfied with progress. Denies chest heaviness, pressure, tightness, or pain. Denies syncope or near-syncope. Denies orthostasis. Denies lightheadedness. Denies nausea or vomiting. Denies palpitations or chest fluttering. Slept about 6 hours last night and he states this is the most he slept for nearly 2 weeks. He is actually tolerating increased activity today as well. Exam Narrative: Exam Narrative: Weight today is 88 kg, yesterday was 89.2 kg, previously was 89.6 kg. Appears comfortable and in no acute distress. Alert and oriented to self, place, time, situation. Articulate cooperative and talkative. Full neck. Sitting upright he has hepatojugular reflux. Peripheral edema is trace when his legs are elevated, although he still has some pretibially as well. Lungs for the most part are clear. Heart tones with regular rhythm, heart murmur present. Abdomen with active bowel sounds, soft and nontender. Skin is warm and intact. No focal motor neurologic deficits. Const: Vital Signs, click to edit/add: Vital Signs - 24 hr 05/11/22 22:33 05/11/22 23:32 05/11/22 23:35 Temperature 98.1 F Pulse Rate [Pulse Oximeter] 54 L Respiratory Rate 20 20 Blood Pressure [Le ft Arm] 148/88 H Pulse Oximetry 93 92 Oxygen Delivery Me thod Nasal Cannula Nasal Cannula Oxygen Flow Rate 1 1 05/12/22 02:29 05/12/22 07:00 05/12/22 07:00 Temperature 98.1 F 97.7 F Pulse Rate [Pulse Oximeter] 56 L 60 Respiratory Rate 18 18 18 Blood Pressure [Le ft Arm] 144/96 H 146/50 H Pulse Oximetry 92 85 L 92 Oxygen Delivery Me thod Nasal Cannula Room Air Nasal Can nula Nasal Cannula Oxygen Flow Rate 1 0 2 05/12/22 07:00 05/12/22 11:00 05/12/22 15:15 Temperature 97.7 F Pulse Rate [Pulse Oximeter] 60 61 Respiratory Rate 18 18 Blood Pressure [Le ft Arm] 160/78 H Pulse Oximetry 93 92 Oxygen Delivery Me thod Nasal Cannula Room Air Oxygen Flow Rate 1 05/12/22 15:15 05/12/22 19:10 Temperature 97.6 F 98.2 F Pulse Rate [Pulse Oximeter] 58 L 61 Respiratory Rate 20 20 Blood Pressure [Le ft Arm] 161/69 H 101/47 L Pulse Oximetry 92 91 Oxygen Delivery Me thod Nasal Cannula Room Air Oxygen Flow Rate 1 Documenting provider has reviewed patient's vital signs: yes Labs Labs: Laboratory Results - last 24 hr 05/12/22 07:17 Sodium 140 Potassium 3.8 Chloride 100 Carbon Dioxide 33 H BUN 38 H Creatinine 1.3 Estimated Creat Clear 40.22 Estimated GFR 55 Glucose 95 Calcium 8.6 Phosphorus 3.3 Magnesium 2.3 NT-Pro-B Natriuret Pep 3840 H Albumin 4.0
[2022-05-12] MEDS: NYSTATIN POWDER 1 APPLIC TOPICAL (20:57)
--- NOTE | 2022-05-12 22:47 | PC.NURSE ---
Shift [id number]- Patient up in chair throughout shift. Sister at bedside and supportive this evening. Blood pressure is decreased this evening, though patient denies dizziness or lightheadedness. He remains on 1L O2 with saturations in low 90s%. Groin is reddened- nystatin applied.
[2022-05-13] MEDS: OxyCODONE/APAP 5-325 TABLET 1 TAB PO ×4 (02:20→13:39)
[2022-05-13 02:23] VITALS: BP 143/56; PULSE 50; RESP 20; TEMP 36.6; O2SAT 93
--- NOTE | 2022-05-13 04:47 | PC.NURSE ---
: Pt states he's resting well again tonight, weight down another 3#, vss on 1lpm of oxygen.
[2022-05-13 06:42] LABS: HCO3 VBG 35 mmol/L (21-28); PCO2 VBG 46 mmHG (40-50); PO2 VBG 42.2 mmHG (25-47); pH VBG 7.491 (7.32-7.43)
[2022-05-13 06:53] LABS: Hematocrit 41.6 % (37.0-53.0); Hemoglobin* 12.6 gm/dL (13.5-17.5); Mean Corpuscular HGB Conc 30 gm/dL (32-36); Mean Corpuscular Hemoglobin 28 pg (26-34); Mean Corpuscular Volume 91 fL (80-100); Platelet Count* 138 K/uL (140-440); Red Blood Count 4.57 m/uL (4.30-5.90); White Blood Count* 6.44 K/uL (4.50-11.00)
[2022-05-13 06:56] LABS: Slide Review Reflex No
[2022-05-13 07:00] VITALS: BP 172/77; PULSE 70; RESP 20; TEMP 36.1; O2SAT 91
[2022-05-13 07:12] LABS: Chloride* 101 mmol/L (96-114); Sodium* 140 mmol/L (135-149)
[2022-05-13 07:13] LABS: Potassium* 3.9 mmol/L (3.6-5.1)
[2022-05-13 07:15] LABS: Blood Urea Nitrogen* 41 mg/dL (7-30); Carbon Dioxide* 33 mmol/L (20-32); Creatinine* 1.4 mg/dL (0.5-1.5); Est. Creatinine Clearance* 37.34; Estimated Glomerular Filt Rate 50 ml/min
[2022-05-13 07:16] LABS: Calcium* 8.6 mg/dL (8.4-10.6); Glucose* 98 mg/dL (60-115); Magnesium* 2.3 mg/dL (1.5-2.6)
[2022-05-13] MEDS: LOSARTAN POTASSIUM 50 MG TABLET 25 MG PO (08:17)
[2022-05-13] MEDS: polyethylene glycoL 3350 17 GM PACK PO (08:17)
[2022-05-13] MEDS: SENNOSIDES/DOCUSATE TABLET 1 TAB PO (08:18)
[2022-05-13] MEDS: OMEPRAZOLE 20 MG CAPSULE DR PO (08:18)
[2022-05-13] MEDS: TORSEMIDE 20 MG TABLET 80 MG PO ×2 (08:19→13:40)
[2022-05-13] MEDS: SILDENAFIL CITRATE 20 MG TABLET PO ×2 (08:19→13:39)
[2022-05-13] MEDS: carvediloL 6.25 MG TABLET 12.5 MG PO (08:19)
[2022-05-13] MEDS: ASPIRIN 81 MG TABLET EC PO (08:19)
[2022-05-13] MEDS: ATORVASTATIN CALCIUM 40 MG TABLET PO (08:19)
[2022-05-13] MEDS: FOLIC ACID 1 MG TABLET PO (08:20)
[2022-05-13] MEDS: POTASSIUM CHLORIDE 10 MEQ CAPSULE ER 20 MEQ PO (08:20)
[2022-05-13] MEDS: allopurinoL 300 MG TABLET PO (08:21)
[2022-05-13] MEDS: SODIUM CHLORIDE 0.9 % (FLUSH) 10 ML SYRINGE 5 ML IVF (08:22)
[2022-05-13] MEDS: NYSTATIN POWDER 1 APPLIC TOPICAL (08:22)
--- NOTE | 2022-05-13 11:16 | PC.SOCIAL ---
Discharge planning- Phone call to pt's sister Luis Carlos at [phone]. Informed that pt will discharge today and discussed transportation. Luis Carlos states that she would like to transport pt and will be to [facility] around 11am. Phone call back to Luis Carlos informing her that the MD that will see pt will be here around 12:00 pm so pt will not discharge until the afternoon. Luis Carlos states she will plan to come to [facility] around 1pm. Provided update to charge nurse. Phone call to Romy at [facility] and provided an update on discharge and transportation.
--- NOTE | 2022-05-13 19:34 | P.DS_ITS ---
DS: Providers Provider Time Seen by Provider: 12:30 Date Seen: 05/13/22 Date of admission: 05/08/22 17:39 Primary care physician: Ervin Chapin MD Admitting Clinician: Sudhakar Motta MD Consults: 05/08/22 17:44 Consult to Nutrition [CONS] Routine Comment: Reason for consult:: Miscellaneous Comment: right sided heart failure; pulmonary artery hypertension Consult to [place] Operator [CONS] Routine Comment: Reason for Consult:: Discharge Planning Needs 05/08/22 17:45 Consult to Occupational Therapy [CONS] Routine Comment: Reason(s) for OT Consult:: Evaluate and Treat Any Restrictions?:: No Restrictions 05/08/22 19:53 Consult to Occupational Therapy [CONS] Routine Comment: Reason(s) for OT Consult:: Difficulty Managing ADLs Any Restrictions?:: No Restrictions Attending Physician on discharge: Jose Brown MD Date of Discharge: 05/13/22 DS: Diagnosis Discharge Diagnosis (1) Acute right-sided congestive heart failure: Status: Acute Problem details: Weight: 89.6 kg 05/08/2022; 88.9 kg 05/09/2022; 89.9 kg 05/10/2022; 89.2 kg 05/11/2022; 88 kg 05/12/2022; 86.6 kg 05/13/2022 (2) Pulmonary arterial hypertension: Status: Acute Problem details: Sildenafil 20 mg 3 times daily (3) Severe tricuspid valve regurgitation: Status: Acute Problem details: May need to consider possible valve replacement therapy with cardiology consultation in outpatient setting (4) Chronic right-sided heart failure: Status: Acute (5) Acute kidney injury (nontraumatic): Status: Acute (6) Chronic kidney disease, stage 3: Status: Acute (7) Chronic atrial fibrillation: Status: Acute Problem details: Continue with current rate control efforts and anticoagulation efforts (8) Chronic back pain: Status: Acute Problem details: According to patient, subsequent to back surgery (9) Chronic, continuous use of opioids: Status: Acute DS: Summary Hospital Course Hospital Course: 81-year-old man with severe pulmonary hypertension presents with acute exacerbation chronic right-sided ventricular heart failure.? History of hepatics cirrhosis.? Presumably pulmonary hypertension related to? underlying portal hypertension. In hospital we were able to eventually diuresed a total of 3 kg or 7 lb throughout his hospital stay. On presentation his torsemide does was 60 mg twice daily. The dose had been 60 mg twice daily for approximately 1 day before he was admitted. Previous to that his dose was 50 mg twice daily. Patient and sister note that his weight increased substantially prior to presentation to the hospital. Reportedly as recently as 3 months ago his weight was 180 lb. More recently his weights have been hovering in mid 190s to the low 200s. In hospital we switched him to furosemide 80 mg IV twice daily. We achieved only a modicum of benefit from this. Eventually we switched him back to the torsemide at a dose of 80 mg twice daily, this is after we had achieved a much higher dose of the losartan. With these modifications his weight improved substantially. On 11 May his weight was 89.2 kilos. On 12 May his weight was down to 88 kilos. On 13 May, date of discharge, weight was down to 86.6 kilos. I advised the patient and his sister that the dose of the torsemide may need to be decreased down to 60 mg twice daily or even lower in the near future. Echocardiogram obtained during this hospitalization demonstrated an ejection fraction of about 50% but with mildly dilated left ventricular chamber. On presentation he was already on carvedilol 12.5 mg twice daily. We continued the same regimen. We added low-dose losartan on presentation, 12.5 mg daily. We continue to titrate the dose of the losartan up until dose of 50 mg daily at time of discharge. His systolic blood pressures continued to be between 140 and 160 during the course of his hospital stay. It is possible that the dose of losartan might eventually be increased even further. Status at Discharge Functional status at discharge: uses cane/walker Overall status at discharge: patient is progressing back to baseline Time Spent with Patient Time attestation: Total time spent providing and/or coordinating discharge services: Time spent: Greater than 30 minutes Exam Narrative: Exam Narrative: Appears comfortable and in no acute distress.? Alert and oriented to self, place, time, situation.? Articulate cooperative and talkative.? Full neck.? Sitting upright he has hepatojugular reflux. Peripheral edema is trace when his legs are elevated, although he still has some pretibially as well. Lungs for the most part are clear.? Heart tones with regular rhythm, heart murmur present.? Abdomen with active bowel sounds, soft and nontender.? Skin is warm and intact. No focal motor neurologic deficits. Const: Vital Signs, click to edit/add: Vital Signs - 24 hr 05/12/22 20:04 05/12/22 23:45 05/12/22 23:45 Temperature 98 F Pulse Rate [Pulse Oximeter] 52 L Respiratory Rate Blood Pressure [Le ft Arm] 112/53 L Pulse Oximetry 93 93 Oxygen Delivery Me thod Nasal Cannula Nasal Cannula Oxygen Flow Rate 1 1 05/12/22 23:46 05/13/22 02:23 05/13/22 07:00 Temperature 98 F 97.0 F L Pulse Rate [Pulse Oximeter] 52 L 50 L 70 Respiratory Rate 20 20 20 Blood Pressure [Le ft Arm] 143/56 H 172/77 H Pulse Oximetry 93 91 Oxygen Delivery Me thod Nasal Cannula Room Air Oxygen Flow Rate 1 05/13/22 07:00 05/13/22 07:00 Temperature Pulse Rate [Pulse Oximeter] 70 Respiratory Rate 20 Blood Pressure [Le ft Arm] Pulse Oximetry 91 Oxygen Delivery Me thod Room Air Oxygen Flow Rate Documenting provider has reviewed patient's vital signs: yes DS: Data Data Completed and Pending Labs on day of discharge: Labs from last 24 hours 05/13/22 05/13/22 05/13/22 06:35 06:35 06:35 WBC 6.44 RBC 4.57 Hgb 12.6 L Hct 41.6 MCV 91 MCH 28 MCHC 30 L Plt Count 138 L VBG pH 7.491 H VBG pCO2 46 VBG pO2 42.2 VBG HCO3 35 H Sodium 140 Potassium 3.9 Chloride 101 Carbon Dioxide 33 H BUN 41 H Creatinine 1.4 Estimated Creat Clear 37.34 Estimated GFR 50 Glucose 98 Calcium 8.6 Magnesium 2.3 Imaging Echo: Radiologist's impression: 1. Mildly increased left ventricular chamber size, mildly increased wall thickness, low normal global systolic function with calculated EF of 50%. 2. Right ventricular cavity size is moderately enlarged, global systolic right ventricular function is mildly reduced.? 3. Right ventricular volume and pressure overload.? 4. Severe biatrial enlargement.? 5. Severe tricuspid room valve regurgitation.? 6. Pulmonary artery is moderately dilated.? 7. Aortic valve is calcified and trileaflet with no stenosis and mild regurgitation.? 8. Severely increased estimated pulmonary pressures (94 mmHg, inclusive of right atrial pressure estimated at 15 mmHg).? This is higher than the last echocardiogram from June of 2019. 9. Small pericardial effusion. Discharge Plan Discharge Disposition: Home Health Service Date of Admission: 05/08/22 17:39 Attending Provider on Discharge: Jose Brown Primary Care Provider: Ervin Chapin Condition: Improved Anticipated Discharge Date/Time: 05/13/22 14:30 Discharge Medications: New losartan 50 mg Tablet 50 mg PO DAILY Qty: 30 0RF potassium chloride 10 mEq Capsule, Extended Release 20 meq PO DAILY Qty: 30 0RF torsemide 20 mg Tablet 80 mg PO BID@0800,1400 Qty: 240 1RF Continued allopurinol 300 mg tablet 300 mg PO DAILY Label Comments: TAKE ONE TABLET BY MOUTH EVERY DAY aspirin 81 mg tablet,delayed release (DR/EC) 81 mg PO DAILY Label Comments: TAKE ONE TABLET BY MOUTH EVERY DAY atorvastatin 40 mg tablet 40 mg PO DAILY Label Comments: TAKE ONE TABLET BY MOUTH EVERY DAY carvedilol 12.5 mg tablet 12.5 mg PO BID Label Comments: TAKE ONE TABLET BY MOUTH TWICE A DAY folic acid 1 mg tablet 1 mg PO DAILY Label Comments: TAKE ONE TABLET BY MOUTH EVERY DAY polyethylene glycol 3350 17 gram/dose powder 17 g PO DAILY Label Comments: GIVE 17GM BY MOUTH ONE TIME A DAY FOR CONSTIPATION MIX WITH 4-8 OUNCES(120- 240CC) OF LIQUID omeprazole 20 mg capsule,delayed release(DR/EC) 20 mg PO DAILY Label Comments: TAKE ONE CAPSULE BY MOUTH EVERY DAY oxycodone-acetaminophen 5-325 mg tablet 1 tab PO Q4H Label Comments: TAKE ONE TABLET BY MOUTH 6 TIMES DAILY sennosides [senna] 8.6 mg tablet 8.6 mg PO DAILY PRN (Reason: constipation) Label Comments: TAKE ONE TABLET BY MOUTH TWICE A DAY sildenafil (pulm.hypertension) 20 mg tablet 20 mg PO TID Label Comments: TAKE ONE TABLET BY MOUTH THREE TIMES DAILY Discontinued torsemide 20 mg tablet 60 mg PO BID Label Comments: Take 3 tablet by mouth every morning And 3 tabs Q afternoon Discharge Orders: Discharge Order (Routine); Ordered 05/13/22 Ordered By: Jose Brown Patient Education: Heart Failure (DC), Seasoning Without Salt (GEN), Low-Sodium Diet (GEN) Additional Instructions: 1. Discharged back to [facility]; 2. Follow-up with Dr. Chapin or nurse practitioner in 2-7 days, with previsit Basic Metabolic panel; 3. Hear Failure monitoring with daily weight, report findings to his physician weekly and sooner if weight increased more than 2 lbs in single day, or 5 lbs or more in a single week. Activity Level: Activity as Tolerated and Use Walker Discharge Diet: 2 gm Sodium Follow Up Appointments: Ervin Chapin MD [Primary Care Provider] - Forms: [employer] Info Instructions
== END 2022-05-13 14:32 | disposition home health service (06) | DRG 194 ==
LOC: ED 05-08 13:05 → MEDSURG 05-08 13:28
PROVIDERS: Admitting Provider Family Medicine; Emergency Provider Family Medicine; PCP Family Medicine; Visit Provider Internal Medicine
DX: I13.0 Hypertensive heart and chronic kidney disease with heart failure and stage 1 through stage 4 chronic kidney disease, or unspecified chronic kidney disease (principal); I50.813 Acute on chronic right heart failure; N18.30 Chronic kidney disease, stage 3 unspecified; N17.9 Acute kidney failure, unspecified; I27.21 Secondary pulmonary arterial hypertension; K76.6 Portal hypertension; I48.20 Chronic atrial fibrillation, unspecified; Z79.01 Long term (current) use of anticoagulants; F10.21 Alcohol dependence, in remission; K70.30 Alcoholic cirrhosis of liver without ascites; G89.29 Other chronic pain; M54.9 Dorsalgia, unspecified; K21.9 Gastro-esophageal reflux disease without esophagitis; M10.9 Gout, unspecified; N28.1 Cyst of kidney, acquired; I08.1 Rheumatic disorders of both mitral and tricuspid valves; Z79.891 Long term (current) use of opiate analgesic; G47.00 Insomnia, unspecified; E55.9 Vitamin D deficiency, unspecified; E78.5 Hyperlipidemia, unspecified; E21.3 Hyperparathyroidism, unspecified; Z86.718 Personal history of other venous thrombosis and embolism; Z86.711 Personal history of pulmonary embolism
CPT/HCPCS: 36415; 71045; 80048; 80053; 80069; 82565; 82803; 83735; 83880; 84132; 84443; 84484; 84520; 85025; 85027; 87635; 93005; 93306; 94761; 97165; 99285; A9270; J1940

== ENCOUNTER 2022-05-19 13:34 | Outpatient (REF) | payer BC, SELFPAY ==
[2022-05-19 14:46] LABS: Chloride* 103 mmol/L (96-114); Potassium* 4.8 mmol/L (3.6-5.1); Sodium* 141 mmol/L (135-149)
[2022-05-19 14:49] LABS: Blood Urea Nitrogen* 42 mg/dL (7-30); Carbon Dioxide* 29 mmol/L (20-32); Creatinine* 1.4 mg/dL (0.5-1.5); Estimated Glomerular Filt Rate 50 ml/min
[2022-05-19 14:50] LABS: Calcium* 9.2 mg/dL (8.4-10.6); Glucose* 144 mg/dL (60-115)
== END 2022-05-19 13:35 | disposition home or self-care (01) ==
LOC: NPINS 13:34
PROVIDERS: PCP Family Medicine; Visit Provider Nurse Practitioner Gerontology
DX: N18.30 Chronic kidney disease, stage 3 unspecified (principal)
CPT/HCPCS: 64483; 80048; J1100; Q9966

== ENCOUNTER 2022-05-26 14:15 | Outpatient (REF) | payer BC, SELFPAY ==
[2022-05-26 17:46] LABS: Chloride* 99 mmol/L (96-114); Potassium* 4.3 mmol/L (3.6-5.1); Sodium* 138 mmol/L (135-149)
[2022-05-26 17:49] LABS: Blood Urea Nitrogen* 60 mg/dL (7-30); Carbon Dioxide* 27 mmol/L (20-32); Creatinine* 1.5 mg/dL (0.5-1.5); Estimated Glomerular Filt Rate 46 ml/min; Glucose* 111 mg/dL (60-115)
[2022-05-26 17:50] LABS: Calcium* 8.8 mg/dL (8.4-10.6)
== END 2022-05-26 14:16 | disposition home or self-care (01) ==
LOC: NPINS 14:15
PROVIDERS: PCP Family Medicine; Visit Provider Nurse Practitioner Gerontology
DX: N18.30 Chronic kidney disease, stage 3 unspecified (principal)
CPT/HCPCS: 80048

== ENCOUNTER 2022-06-09 11:46 | Outpatient (REF) | payer BC, SELFPAY ==
[2022-06-09 12:46] LABS: Chloride* 101 mmol/L (96-114); Potassium* 4.3 mmol/L (3.6-5.1); Sodium* 139 mmol/L (135-149)
[2022-06-09 12:48] LABS: Creatinine* 1.6 mg/dL (0.5-1.5); Estimated Glomerular Filt Rate 43 ml/min
[2022-06-09 12:49] LABS: Blood Urea Nitrogen* 63 mg/dL (7-30); Carbon Dioxide* 30 mmol/L (20-32); Glucose* 125 mg/dL (60-115)
== END 2022-06-09 11:47 | disposition home or self-care (01) ==
LOC: NPINS 11:46
PROVIDERS: PCP Family Medicine; Visit Provider Nurse Practitioner Gerontology
DX: N18.30 Chronic kidney disease, stage 3 unspecified (principal)
CPT/HCPCS: 80048

== ENCOUNTER 2022-06-23 12:11 | Outpatient (REF) | payer BC, SELFPAY ==
[2022-06-23 13:07] LABS: Chloride* 101 mmol/L (96-114); Potassium* 4.2 mmol/L (3.6-5.1); Sodium* 139 mmol/L (135-149)
[2022-06-23 13:10] LABS: Blood Urea Nitrogen* 65 mg/dL (7-30); Carbon Dioxide* 30 mmol/L (20-32); Creatinine* 1.7 mg/dL (0.5-1.5); Estimated Glomerular Filt Rate 40 ml/min; Glucose* 124 mg/dL (60-115)
== END 2022-06-23 12:12 | disposition home or self-care (01) ==
LOC: NPINS 12:11
PROVIDERS: PCP Family Medicine; Visit Provider Nurse Practitioner Gerontology
DX: N18.30 Chronic kidney disease, stage 3 unspecified (principal)
CPT/HCPCS: 80048

== ENCOUNTER 2022-07-29 13:55 | Outpatient (REF) | payer BC, SELFPAY ==
[2022-07-29 15:03] LABS: Chloride* 104 mmol/L (96-114); Potassium* 4.5 mmol/L (3.6-5.1); Sodium* 140 mmol/L (135-149)
[2022-07-29 15:05] LABS: Creatinine* 1.5 mg/dL (0.5-1.5); Estimated Glomerular Filt Rate 46 ml/min
[2022-07-29 15:06] LABS: Blood Urea Nitrogen* 51 mg/dL (7-30); Calcium* 8.9 mg/dL (8.4-10.6); Carbon Dioxide* 26 mmol/L (20-32); Glucose* 116 mg/dL (60-115)
== END 2022-07-29 13:56 | disposition home or self-care (01) ==
LOC: NPINS 13:55
PROVIDERS: PCP Family Medicine; Visit Provider Nurse Practitioner Gerontology
DX: N18.30 Chronic kidney disease, stage 3 unspecified (principal)
CPT/HCPCS: 80048

== ENCOUNTER 2022-09-01 10:03 | Outpatient (REF) | payer BC, SELFPAY ==
[2022-09-01 10:29] LABS: Chloride* 104 mmol/L (96-114); Potassium* 3.8 mmol/L (3.6-5.1); Sodium* 141 mmol/L (135-149)
[2022-09-01 10:32] LABS: Carbon Dioxide* 27 mmol/L (20-32); Creatinine* 1.6 mg/dL (0.5-1.5); Estimated Glomerular Filt Rate 43 ml/min
[2022-09-01 10:33] LABS: Blood Urea Nitrogen* 48 mg/dL (7-30); Calcium* 8.9 mg/dL (8.4-10.6); Glucose* 128 mg/dL (60-115)
== END 2022-09-01 10:04 | disposition home or self-care (01) ==
LOC: NPINS 10:03
PROVIDERS: PCP Family Medicine; Visit Provider Nurse Practitioner Gerontology
DX: I50.9 Heart failure, unspecified (principal)
CPT/HCPCS: 80048

== ENCOUNTER 2022-11-24 10:37 | Outpatient (REF) | payer BC, SELFPAY ==
[2022-11-24 12:11] LABS: Basophils Absolute Auto 0.03 K/uL (0.00-0.30); Basophils Percent Auto 0.6 % (0.0-3.0); Eosinophils Absolute Auto 0.32 K/uL (0.00-0.50); Eosinophils Percent Auto 6.1 % (0.0-7.0); Immature Granulocytes Abs Auto 0.01 K/uL (0.00-0.30); Immature Granulocytes Pct Auto 0.2 %; Lymphocytes Percent Auto 10.6 % (20-44); Mean Corpuscular HGB Conc 32 gm/dL (32-36); Mean Corpuscular Hemoglobin 33 pg (26-34); Mean Corpuscular Volume 104 fL (80-100); Monocytes Percent Auto 8.3 % (0.0-11.0); Neutrophils Percent Auto 74.2 % (42.0-72.0); Platelet Count* 133 K/uL (140-440); RDW Coefficient of Variation % 14.9 % (11.5-15.5); Red Blood Count 3.95 m/uL (4.30-5.90); White Blood Count* 5.27 K/uL (4.50-11.00)
[2022-11-24 12:13] LABS: Slide Review Reflex No
[2022-11-24 12:32] LABS: Chloride* 100 mmol/L (96-114); Potassium* 4.2 mmol/L (3.6-5.1); Sodium* 137 mmol/L (135-149)
[2022-11-24 12:34] LABS: Cholesterol* 78 mg/dL (90-199); Creatinine* 1.4 mg/dL (0.5-1.5); Estimated Glomerular Filt Rate 50 ml/min
[2022-11-24 12:35] LABS: Blood Urea Nitrogen* 44 mg/dL (7-30); Calcium* 9.2 mg/dL (8.4-10.6); Carbon Dioxide* 27 mmol/L (20-32); Glucose* 120 mg/dL (60-115); Triglycerides* 107 mg/dL (40-149)
[2022-11-24 12:36] LABS: HDL Cholesterol* 26 mg/dL (>=40); LDL Cholesterol Calculated 31 mg/dL (<100)
== END 2022-11-24 10:38 | disposition home or self-care (01) ==
LOC: NPINS 10:37
PROVIDERS: PCP Family Medicine; Visit Provider Nurse Practitioner Gerontology
DX: I50.9 Heart failure, unspecified (principal); D64.9 Anemia, unspecified; E78.00 Pure hypercholesterolemia, unspecified
CPT/HCPCS: 80048; 80061; 85025

== ENCOUNTER 2022-12-29 12:39 | Outpatient (CLI) | payer BC, SELFPAY | END 2022-12-29 12:40 | disposition home or self-care (01) | LOC: RAD 12:40 | PROVIDERS: PCP Family Medicine; Visit Provider Family Medicine | DX: M47.816 Spondylosis without myelopathy or radiculopathy, lumbar region (principal); M48.061 Spinal stenosis, lumbar region without neurogenic claudication; M54.16 Radiculopathy, lumbar region; M54.17 Radiculopathy, lumbosacral region | CPT/HCPCS: 64483; J1100; Q9966 ==

== ENCOUNTER 2023-03-03 10:04 | Outpatient (REF) | payer BC, SELFPAY ==
[2023-03-03 11:42] LABS: Chloride* 92 mmol/L (96-114); Potassium* 4.1 mmol/L (3.6-5.1); Sodium* 134 mmol/L (135-149)
[2023-03-03 11:45] LABS: Anion Gap 12 mEq/L (7-15); Blood Urea Nitrogen* 48 mg/dL (7-30); Carbon Dioxide* 30 mmol/L (20-32); Creatinine* 0.9 mg/dL (0.5-1.5); Estimated Glomerular Filt Rate 85 ml/min
[2023-03-03 11:46] LABS: Calcium* 9.1 mg/dL (8.4-10.6); Glucose* 112 mg/dL (60-115)
== END 2023-03-03 10:05 | disposition home or self-care (01) ==
LOC: NPINS 10:04
PROVIDERS: PCP Family Medicine; Visit Provider Nurse Practitioner Gerontology
DX: I50.9 Heart failure, unspecified (principal)
CPT/HCPCS: 80048

== ENCOUNTER 2023-03-23 14:44 | Outpatient (REF) | payer BC, SELFPAY ==
[2023-03-23 16:00] LABS: Chloride* 87 mmol/L (96-114); Potassium* 3.6 mmol/L (3.6-5.1); Sodium* 127 mmol/L (135-149)
[2023-03-23 16:03] LABS: Anion Gap 12 mEq/L (7-15); Carbon Dioxide* 28 mmol/L (20-32); Creatinine* 1.4 mg/dL (0.5-1.5); Estimated Glomerular Filt Rate 50 ml/min
[2023-03-23 16:04] LABS: Blood Urea Nitrogen* 44 mg/dL (7-30); Calcium* 7.9 mg/dL (8.4-10.6); Glucose* 138 mg/dL (60-115)
== END 2023-03-23 14:45 | disposition home or self-care (01) ==
LOC: NPINS 14:44
PROVIDERS: PCP Family Medicine; Visit Provider Nurse Practitioner Gerontology
DX: I10 Essential (primary) hypertension (principal)
CPT/HCPCS: 80048

== ENCOUNTER 2023-03-24 17:34 | Inpatient (IN) | payer BC, SELFPAY ==
[2023-03-24] VITALS (15 sets, daily range): BP systolic 165–177; BP diastolic 66–80; PULSE 41–50; RESP 20–24; TEMP 36.1–36.7; O2SAT 89–97; BMI 29.2; BMI 29.3
--- NOTE | 2023-03-24 19:50 | CRLHL7_ITS ---
For Patients: As a result of the Century Cures Act, medical imaging exams and procedure reports are released immediately into your electronic medical record. You may view this report before your referring provider. If you have questions, please contact your health care provider. INDICATION: SOB, KNOWN CHF TECHNIQUE: Chest 2 views. COMPARISON: 02/13/2023 IMPRESSION: Marked cardiomegaly is again noted. There is central vascular congestion with interstitial prominence compatible with pulmonary edema. There is record in the basilar fluid and atelectasis or consolidation. No pneumothorax. Dictated by Anderson Jonas MD @ 03/24/2023 9:02:07 PM (Electronically Signed)
--- NOTE | 2023-03-24 20:16 | ED_ITS ---
HPI - SOB/Dyspnea General Date Seen: 03/24/23 Chief Complaint: Shortness of Breath/Dyspnea Stated Complaint: Short of breath Time Seen by Provider: 03/24/23 19:27 Source: patient and family Mode of arrival: ambulatory Limitations: no limitations History of Present Illness HPI Narrative: Patient is a 2-year-old male with history of CHF, chronic kidney disease, pulmonary hypertension, presenting to the emergency department for shortness of breath. He comes from assisted living. His been increased shortness of breath for the past week it has not the 8 lb weight gain in the past week also. Has notices lower extremities have been swollen. He states he is still peeing the same amount as normal. He has been taking his torsemide as directed they have even increased the dose over the past few days without improvement. States he feels short of breath at rest also. Has some mild chest pains that has been going on for past 2 or 3 days. No history of coronary disease or stents placed. Says he had similar symptoms in the past and was admitted for CHF exacerbation. Denies fevers, chills, weakness, numbness, headache, vision changes. Related Data Home Medications Medication Instructions Recorded Confirmed allopurinol 300 mg tablet 300 mg PO DAILY 05/07/22 02/13/23 aspirin 81 mg tablet,delayed 81 mg PO DAILY 05/07/22 02/13/23 release atorvastatin 40 mg tablet 40 mg PO DAILY 05/07/22 02/13/23 carvedilol 12.5 mg tablet 12.5 mg PO BID 05/07/22 02/13/23 folic acid 1 mg tablet 1 mg PO DAILY 05/07/22 02/13/23 omeprazole 20 mg capsule,delayed 20 mg PO DAILY 05/07/22 02/13/23 release oxycodone-acetaminophen 5 mg-325 1 tab PO Q4H pain 05/07/22 02/13/23 mg tablet polyethylene glycol 3350 17 17 g PO DAILY 05/07/22 02/13/23 gram/dose oral powder sennosides 8.6 mg tablet (senna) 8.6 mg PO DAILY PRN constipation 05/07/22 02/13/23 sildenafil (pulm.hypertension) 20 20 mg PO TID 05/07/22 02/13/23 mg tablet clotrimazole 1 % topical cream 1 applic topical BID 02/13/23 02/13/23 (Antifungal (clotrimazole)) Previous Rx's Medication Instructions Recorded losartan 50 mg tablet 50 mg PO DAILY #30 tabs 05/13/22 potassium chloride 10 mEq 20 meq (2 x 10 mEq) PO DAILY #30 05/13/22 capsule,extended release caps torsemide 20 mg tablet 80 mg (4 x 20 mg) PO BID@0800,1400 05/13/22 #240 tabs azithromycin 250 mg tablet See Rx Instructions PO .COMPLEX #6 02/13/23 tabs benzonatate 200 mg capsule 200 mg PO BID-TID PRN cough #14 02/13/23 caps Allergies Allergy/AdvReac Type Severity Reaction Status Date / Time cyclobenzaprine Allergy Unknown Verified 02/13/23 12:27 meloxicam Allergy Unknown Verified 02/13/23 12:27 NSAIDS (Non-Steroidal Allergy Unknown Verified 02/13/23 12:27 Anti-Inflamma Review of Systems Status of ROS: Reports: 10 or more systems reviewed and unremarkable except as noted in History and below [facility] Medical History Chronic alcoholism in remission ?F10.21 - Alcohol dependence, in remission (ICD-10) Degenerative disc disease Osteoarthritis ?M19.90 - Unspecified osteoarthritis, unspecified site (ICD-10) Chronic back pain ?M54.9 - Dorsalgia, unspecified (ICD-10) ?G89.29 - Other chronic pain (ICD-10) Chronic kidney disease, stage 3 ?N18.30 - Chronic kidney disease, stage 3 unspecified (ICD-10) Chronic, continuous use of opioids ?F11.90 - Opioid use, unspecified, uncomplicated (ICD-10) Chronic pain ?G89.29 - Other chronic pain (ICD-10) Cyst of kidney, acquired ?N28.1 - Cyst of kidney, acquired (ICD-10) History of deep venous thrombosis or pulmonary embolus Gastroesophageal reflux disease ?K21.9 - Gastro-esophageal reflux disease without esophagitis (ICD-10) Gout ?M10.9 - Gout, unspecified (ICD-10) Insomnia ?G47.00 - Insomnia, unspecified (ICD-10) Hyperlipidemia ?E78.5 - Hyperlipidemia, unspecified (ICD-10) Chronic atrial fibrillation ?I48.20 - Chronic atrial fibrillation, unspecified (ICD-10) Essential hypertension ?I10 - Essential (primary) hypertension (ICD-10) History of stroke ?Z86.73 - Personal history of transient ischemic attack (TIA), and cerebral infarction without residual deficits (ICD-10) Hyperparathyroidism ?E21.3 - Hyperparathyroidism, unspecified (ICD-10) Pulmonary arterial hypertension ?I27.21 - Secondary pulmonary arterial hypertension (ICD-10) Chronic right-sided heart failure ?I50.812 - Chronic right heart failure (ICD-10) Social History Highest level of school completed/degree received: 10th grade Smoking Status: Never smoker Do you use any of these nicotine containing products: None Nicotine containing products detail: occasional chewing tobacco Second hand tobacco smoke exposure: No How often do you have a drink containing alcohol: never How often do you have six or more drinks on one occasion: Never AUDIT-C Alcohol total score: 0 Non-prescribed substance use: denies use Caffeine: Yes (occasional diet pepsi) service: No Exam Narrative: Exam Narrative: Const: Well-nourished, Well-developed, in mild distress Eyes: PERRL, no conjunctival injection, and symmetrical lids HENT: Atraumatic external nose and ears. Moist mucous membranes. Neck: Symmetric, trachea midline, No thyromegaly. CVS: RRR, No murmurs or gallops. Peripheral pulses 2+ and equal in all extremities, +2 lower extremity pitting edema bilaterally just past the ankle RESP: Unlabored respiratory effort. Clear to auscultation bilaterally. GI: Nontender/Nondistended, No rebound or guarding. MSK:Extremities w/o deformity, Normal Active ROM Skin: Warm, Dry. No rashes or lesions. Neuro: Normal Muscle tone, No focal neurological deficits. Psych: Awake, Alert, & Oriented x3. Appropriate mood and affect. Const: Vital Signs, click to edit/add: Vital Signs - 24 hr 03/24/23 17:42 03/24/23 20:12 03/24/23 20:15 Temperature 98.1 F Pulse Rate 47 L 47 L Pulse Rate [Pulse Oximeter] 50 L Respiratory Rate 20 Blood Pressure Blood Pressure [Ri ght Upper Arm] 177/69 H Pulse Oximetry 89 96 97 Oxygen Delivery Me thod Room Air Oxygen Flow Rate 03/24/23 20:19 03/24/23 20:20 03/24/23 20:30 Temperature Pulse Rate 49 L 49 L Pulse Rate [Pulse Oximeter] Respiratory Rate Blood Pressure 165/80 H Blood Pressure [Ri ght Upper Arm] Pulse Oximetry 96 96 96 Oxygen Delivery Me thod Nasal Cannula Oxygen Flow Rate 2 03/24/23 20:36 03/24/23 20:51 03/24/23 21:00 Temperature Pulse Rate 45 L 48 L 45 L Pulse Rate [Pulse Oximeter] Respiratory Rate Blood Pressure Blood Pressure [Ri ght Upper Arm] Pulse Oximetry 95 93 94 Oxygen Delivery Me thod Oxygen Flow Rate 03/24/23 21:15 03/24/23 21:30 03/24/23 21:45 Temperature Pulse Rate 49 L 49 L 46 L Pulse Rate [Pulse Oximeter] Respiratory Rate Blood Pressure Blood Pressure [Ri ght Upper Arm] Pulse Oximetry 95 94 89 Oxygen Delivery Me thod Oxygen Flow Rate 03/24/23 22:00 03/24/23 22:15 Temperature Pulse Rate 41 L 47 L Pulse Rate [Pulse Oximeter] Respiratory Rate Blood Pressure Blood Pressure [Ri ght Upper Arm] Pulse Oximetry 91 91 Oxygen Delivery Me thod Oxygen Flow Rate Course Vital Signs Vital signs: Initial Vital Signs Temperature 98.1 F 03/24/23 17:42 Temperature Source Temporal Artery Scan 03/24/23 17:42 Pulse Rate 50 L 03/24/23 17:42 Respiratory Rate 20 03/24/23 17:42 Blood Pressure 177/69 H 03/24/23 17:42 Blood Pressure Mean 105 03/24/23 17:42 Blood Pressure Position Sitting 03/24/23 17:42 Pulse Oximetry 89 03/24/23 17:42 Oxygen Delivery Method Room Air 03/24/23 17:42 Vital Signs Temperature 98.1 F 03/24/23 17:42 Pulse Rate 50 L 03/24/23 17:42 Respiratory Rate 20 03/24/23 17:42 Blood Pressure 177/69 H 03/24/23 17:42 Pulse Oximetry 89 03/24/23 17:42 Oxygen Delivery Method Room Air 03/24/23 17:42 Temperature 98.1 F 03/24/23 17:42 Pulse Rate 47 L 03/24/23 22:15 Respiratory Rate 20 03/24/23 17:42 Blood Pressure 165/80 H 03/24/23 20:19 Pulse Oximetry 91 03/24/23 22:15 Oxygen Delivery Method Nasal Cannula 03/24/23 20:30 Oxygen Flow Rate 2 03/24/23 20:30 MDM - SOB/Dyspnea MDM Narrative Medical decision making narrative: Patient is an 82-year-old male presenting for shortness of breath. His symptoms appear consistent with CHF exacerbation. Will do a chest x-ray, BNP, CBC, CMP, troponin, EKG, COVID/flu. Differential includes pneumonia, pneumothorax, ACS. Unlikely to be aortic dissection at this time considering his minimal pain. He is hypertensive at this time. Chest x-ray shows pulmonary edema consistent with the expected CHF. BNP is 3600. Troponin is 0.04. His sodium was low as 125 and potassium was also a 3.0. I spoke to hospitalist about possible Lasix and they state they will order them. Cold and flu are pending. Troponin is 0.04. EKG shows on him both returned showing possible new T-wave inversions in V6 but hard to definitively say if they are new or not became previous EKGs. Chest x-ray shows no signs of pneumonia or pneumothorax. Does not appear to be ACS at this time but will continue to monitor. He was admitted to the hospitalist service. Lab Data Labs: Lab Results 03/24/23 03/24/23 Range/Units 20:13 20:23 WBC 5.26 (4.50-11.00) K/uL RBC 3.99 L (4.30-5.90) m/uL Hgb 12.1 L (13.5-17.5) gm/dL Hct 38.0 (37.0-53.0) % MCV 95 (80-100) fL MCH 30 (26-34) pg MCHC 32 (32-36) gm/dL RDW Coeff of Adalberto 16.6 H (11.5-15.5) % Plt Count 132 L (140-440) K/uL Neut % (Auto) 74.4 H (42.0-72.0) % Lymph % (Auto) 8.9 L (20-44) % [place] % (Auto) 8.9 (0.0-11.0) % Eos % (Auto) 7.4 H (0.0-7.0) % Baso % (Auto) 0.4 (0.0-3.0) % Neut # (Auto) 3.90 (1.7-7.0) K/uL Lymph # (Auto) 0.50 L (0.90-2.90) K/uL [place] # (Auto) 0.50 (0.00-0.90) K/UL Eos # (Auto) 0.40 (0.00-0.50) K/uL Baso # (Auto) 0.02 (0.00-0.30) K/uL Abs Immat Gran (auto) 0.00 (0.00-0.30) K/uL Imm/Tot Granulo (auto) 0.0 % Sodium 125 L (135-149) mmol/L Potassium 3.0 L (3.6-5.1) mmol/L Chloride 82 L (96-114) mmol/L Carbon Dioxide 30 (20-32) mmol/L Anion Gap 13 (7-15) mEq/L BUN 46 H (7-30) mg/dL Creatinine 1.5 (0.5-1.5) mg/dL Estimated Creat Clear 35.50 Estimated GFR 46 ml/min Glucose 110 (60-115) mg/dL Calcium 8.4 (8.4-10.6) mg/dL Total Bilirubin 1.6 H (0.1-1.5) mg/dL AST 35 (12-35) U/L ALT 27 (4-50) U/L Alkaline Phosphatase 176 H (40-150) U/L Troponin I 0.04 (0.01-0.04) ng/mL NT-Pro-B Natriuret Pep 3800 pg/mL Total Protein 6.6 (6.0-8.3) g/dL Albumin 4.1 (3.3-5.0) g/dL SARS-CoV-2 (PCR) Negative SARS-CoV-2 (Negative) Influenza Type A (PCR) Negative PCR FLU A (Negative) Influenza Type B (PCR) Negative PCR FLU B (Negative) Imaging Data Chest x-ray: Radiologist's impression: INDICATION: SOB, KNOWN CHF TECHNIQUE: Chest 2 views. COMPARISON: 02/13/2023 IMPRESSION: Marked cardiomegaly is again noted. There is central vascular congestion with interstitial prominence compatible with pulmonary edema. There is record in the basilar fluid and atelectasis or consolidation. No pneumothorax. Dictated by Anderson Jonas MD @ 03/24/2023 9:02:07 PM ECG Data Attestation: I personally reviewed and interpreted this ECG as follows: Prior ECG tracings: available for review Interpretation: Sinus bradycardia rate 54 beats per minute, normal intervals, normal axis, no ST abnormalities. There is appear to be T-wave inversions in V6. Recent previous EKGs 2nd definitively say these are new or not. Did repeat EKG 3 hours later showing similar findings. This new 1 did have a PVC. Discharge Plan Discharge Clinical Impression: Congestive heart failure Qualifiers: Heart failure type: unspecified Heart failure chronicity: acute on chronic Qualified Code(s): I50.9 - Heart failure, unspecified Patient Disposition: Admitted As Observation Discharge Location: [facility] Condition: Stable
[2023-03-24 20:31] LABS: Basophils Absolute Auto 0.02 K/uL (0.00-0.30); Basophils Percent Auto 0.4 % (0.0-3.0); Eosinophils Percent Auto 7.4 % (0.0-7.0); Hemoglobin* 12.1 gm/dL (13.5-17.5); Lymphocytes Percent Auto 8.9 % (20-44); Mean Corpuscular HGB Conc 32 gm/dL (32-36); Mean Corpuscular Hemoglobin 30 pg (26-34); Mean Corpuscular Volume 95 fL (80-100); Monocytes Percent Auto 8.9 % (0.0-11.0); Neutrophils Percent Auto 74.4 % (42.0-72.0); Platelet Count* 132 K/uL (140-440); RDW Coefficient of Variation % 16.6 % (11.5-15.5); Red Blood Count 3.99 m/uL (4.30-5.90); White Blood Count* 5.26 K/uL (4.50-11.00)
[2023-03-24 20:37] LABS: Slide Review Reflex No
[2023-03-24 20:46] LABS: Albumin* 4.1 g/dL (3.3-5.0); Chloride* 82 mmol/L (96-114); Sodium* 125 mmol/L (135-149)
[2023-03-24 20:48] LABS: Creatinine* 1.5 mg/dL (0.5-1.5); Estimated Glomerular Filt Rate 46 ml/min
[2023-03-24 20:49] LABS: Alanine Aminotransferase* 27 U/L (4-50); Alkaline Phosphatase* 176 U/L (40-150); Anion Gap 13 mEq/L (7-15); Aspartate Amino Transferase* 35 U/L (12-35); Bilirubin Total* 1.6 mg/dL (0.1-1.5); Blood Urea Nitrogen* 46 mg/dL (7-30); Carbon Dioxide* 30 mmol/L (20-32); Glucose* 110 mg/dL (60-115); Total Protein* 6.6 g/dL (6.0-8.3)
[2023-03-24 20:50] LABS: Calcium* 8.4 mg/dL (8.4-10.6)
[2023-03-24 21:00] LABS: NT Pro B Type NatriureticPept* 3800 pg/mL
[2023-03-24 21:01] LABS: Troponin I* 0.04 ng/mL (0.01-0.04)
[2023-03-24 21:09] LABS: PCR FLU A Negative PCR FLU A (Negative); PCR FLU B Negative PCR FLU B (Negative)
[2023-03-24 22:05] LABS: SARS PCR* Negative SARS-CoV-2 (Negative)
--- NOTE | 2023-03-24 23:44 | P.IMHP_ITS ---
Hospitalist- H&P: HPI History of Present Illness Date Seen: 03/25/23 Chief complaint: Short of breath Narrative: Mac Beckham is a 82 year old male who presented to the emergency room tonight complaining of shortness of breath. He has noted symptoms over the past week or so, in addition to an 8 lb weight gain and swollen ankles. He has known CHF and pulmonary hypertension; typically on torsemide at home and also received 3 days of metolazone this week (lives at [facility]). Making urine. He has intermittently had some chest discomfort over the past few days. ER course and findings: - O2 saturations <90% on RA upon arrival - EKG reveals atrial fibrillation (history of this per chart review), rate in the 40s with PVCs, mild ST depression in V6, and prolonged QT - troponin 0.04, BNP 3800 - creatinine 1.6, close to outpatient baseline - cardiomegaly and vascular congestion consistent with pulmonary edema on chest x-ray Upon arrival to the floor, Deven is feeling better. Sister Luis Carlos is present for H&P. Histories updated below. Review of Systems Status of ROS: Reports: 10 or more systems reviewed and unremarkable except as noted in History and below [facility] Medical History Chronic alcoholism in remission ?F10.21 - Alcohol dependence, in remission (ICD-10) Degenerative disc disease Osteoarthritis ?M19.90 - Unspecified osteoarthritis, unspecified site (ICD-10) Chronic back pain ?M54.9 - Dorsalgia, unspecified (ICD-10) ?G89.29 - Other chronic pain (ICD-10) Chronic kidney disease, stage 3 ?N18.30 - Chronic kidney disease, stage 3 unspecified (ICD-10) Chronic, continuous use of opioids ?F11.90 - Opioid use, unspecified, uncomplicated (ICD-10) Chronic pain ?G89.29 - Other chronic pain (ICD-10) Cyst of kidney, acquired ?N28.1 - Cyst of kidney, acquired (ICD-10) History of deep venous thrombosis or pulmonary embolus Gastroesophageal reflux disease ?K21.9 - Gastro-esophageal reflux disease without esophagitis (ICD-10) Gout ?M10.9 - Gout, unspecified (ICD-10) Insomnia ?G47.00 - Insomnia, unspecified (ICD-10) Hyperlipidemia ?E78.5 - Hyperlipidemia, unspecified (ICD-10) Chronic atrial fibrillation ?I48.20 - Chronic atrial fibrillation, unspecified (ICD-10) Essential hypertension ?I10 - Essential (primary) hypertension (ICD-10) History of stroke ?Z86.73 - Personal history of transient ischemic attack (TIA), and cerebral infarction without residual deficits (ICD-10) Hyperparathyroidism ?E21.3 - Hyperparathyroidism, unspecified (ICD-10) Pulmonary arterial hypertension ?I27.21 - Secondary pulmonary arterial hypertension (ICD-10) Chronic right-sided heart failure ?I50.812 - Chronic right heart failure (ICD-10) Social History (Updated 03/25/23 @ 00:03 by Abigail Dukes MD) Narrative: Lives at [facility]. Sister Luis Carlos would be MDM if needed. No smoking, no current ETOH use. DNR/DNI. Highest level of school completed/degree received: 10th grade Smoking Status: Never smoker Do you use any of these nicotine containing products: None Nicotine containing products detail: occasional chewing tobacco Second hand tobacco smoke exposure: No How often do you have a drink containing alcohol: never How often do you have six or more drinks on one occasion: Never AUDIT-C Alcohol total score: 0 Non-prescribed substance use: denies use Caffeine: Yes (occasional diet pepsi) service: No Meds Home Medications and Allergies Home Medications Medication Instructions Recorded Confirmed Type allopurinol 300 mg tablet 300 mg PO DAILY 05/07/22 03/24/23 History aspirin 81 mg tablet,delayed 81 mg PO DAILY 05/07/22 03/24/23 History release atorvastatin 40 mg tablet 40 mg PO DAILY 05/07/22 03/24/23 History carvedilol 12.5 mg tablet 12.5 mg PO BID 05/07/22 03/24/23 History folic acid 1 mg tablet 1 mg PO DAILY 05/07/22 03/24/23 History omeprazole 20 mg capsule,delayed 20 mg PO DAILY 05/07/22 03/24/23 History release oxycodone-acetaminophen 5 mg-325 1 tab PO Q4H pain 05/07/22 03/24/23 History mg tablet polyethylene glycol 3350 17 17 g PO DAILY 05/07/22 03/24/23 History gram/dose oral powder sennosides 8.6 mg tablet (senna) 8.6 mg PO DAILY PRN constipation 05/07/22 03/24/23 History sildenafil (pulm.hypertension) 20 20 mg PO TID 05/07/22 03/24/23 History mg tablet clotrimazole 1 % topical cream 1 applic topical BID 02/13/23 03/24/23 History (Antifungal (clotrimazole)) Allergies Allergy/AdvReac Type Severity Reaction Status Date / Time cyclobenzaprine Allergy Unknown Verified 02/13/23 12:27 meloxicam Allergy Unknown Verified 02/13/23 12:27 NSAIDS (Non-Steroidal Allergy Unknown Verified 02/13/23 12:27 Anti-Inflamma Exam Narrative: Exam Narrative: GEN: Alert and answering questions appropriately, appears chronically ill HEENT: Normal external ears, EOMIs bilaterally, no scleral icterus CV: Irregular rhythm, bradycardic R: Fine bibasilar rales Ext: wwp, 2-3+ pitting edema bilaterally Neuro: Nonfocal Psych: Appropriate Const: Vital Signs, click to edit/add: Vital Signs - 24 hr 03/24/23 17:42 03/24/23 20:12 03/24/23 20:15 Temperature 98.1 F Pulse Rate 47 L 47 L Pulse Rate [Pulse Oximeter] 50 L Respiratory Rate 20 Blood Pressure Blood Pressure [Ri ght Upper Arm] 177/69 H Pulse Oximetry 89 96 97 Oxygen Delivery Me thod Room Air Oxygen Flow Rate 03/24/23 20:19 03/24/23 20:20 03/24/23 20:30 Temperature Pulse Rate 49 L 49 L Pulse Rate [Pulse Oximeter] Respiratory Rate Blood Pressure 165/80 H Blood Pressure [Ri ght Upper Arm] Pulse Oximetry 96 96 96 Oxygen Delivery Me thod Nasal Cannula Oxygen Flow Rate 2 03/24/23 20:36 03/24/23 20:51 03/24/23 21:00 Temperature Pulse Rate 45 L 48 L 45 L Pulse Rate [Pulse Oximeter] Respiratory Rate Blood Pressure Blood Pressure [Ri ght Upper Arm] Pulse Oximetry 95 93 94 Oxygen Delivery Me thod Oxygen Flow Rate 03/24/23 21:15 03/24/23 21:30 03/24/23 21:45 Temperature Pulse Rate 49 L 49 L 46 L Pulse Rate [Pulse Oximeter] Respiratory Rate Blood Pressure Blood Pressure [Ri ght Upper Arm] Pulse Oximetry 95 94 89 Oxygen Delivery Me thod Oxygen Flow Rate 03/24/23 22:00 03/24/23 22:15 Temperature Pulse Rate 41 L 47 L Pulse Rate [Pulse Oximeter] Respiratory Rate Blood Pressure Blood Pressure [Ri ght Upper Arm] Pulse Oximetry 91 91 Oxygen Delivery Me thod Oxygen Flow Rate Hospitalist - H&P: Result Labs Labs: Short CBC 03/24/23 Range/Units 20:23 WBC 5.26 (4.50-11.00) K/uL Hgb 12.1 L (13.5-17.5) gm/dL Hct 38.0 (37.0-53.0) % Plt Count 132 L (140-440) K/uL BMP 03/24/23 20:23 Sodium 125 L Potassium 3.0 L Chloride 82 L Carbon Dioxide 30 BUN 46 H Creatinine 1.5 Glucose 110 Calcium 8.4 Cardiac Enzymes 03/24/23 Range/Units 20:23 Troponin I 0.04 (0.01-0.04) ng/mL Liver Function 03/24/23 Range/Units 20:23 Total Bilirubin 1.6 H (0.1-1.5) mg/dL AST 35 (12-35) U/L ALT 27 (4-50) U/L Alkaline Phosphatase 176 H (40-150) U/L Albumin 4.1 (3.3-5.0) g/dL Assessment and Plan Assessment and plan (1) Acute right-sided congestive heart failure: Problem comment: - evidenced by weight gain, dyspnea, hypoxia - chronic/severe pulmonary HTN - patient's hypokalemia limits aggressive early diuresis - will replace K, then give lasix - follow Is/Os closely - repeat TTE, follow troponin - patient and sister aware of tenuous status Status: Acute (2) Pulmonary arterial hypertension: Problem comment: - Sildenafil 20 mg 3 times daily Status: Acute (3) Congestive heart failure: Problem comment: - last TTE 05/28: Indication for study: CHF (congestive heart failure) (HC) [I50.9 (ICD-10-CM)] Cardiac Rhythm: Atrial fibrillation.Study quality: Final Impressions: 1. Mildly increased left ventricular size, mildly increased wall thickness, low normal global systolic function, calculated EF of 50 %. 2. Right ventricular cavity size is moderately enlarged, global systolic RV function is mildly reduced. 3. Right ventricular volume and pressure overload. 4. Severe biatrial enlargement. 5. Severe tricuspid regurgitation. 6. Pulmonary artery is moderately dilated. 7. The aortic valve is calcified and trileaflet, no stenosis and mild regurgitation. 8. Severely increased estimated pulmonary pressures (94 mmhg, inclusive of RA pressure estimate of 15 mmHg). 9. Small pericardial effusion. Status: Acute (4) Chronic, continuous use of opioids: Problem comment: - takes scheduled Percocet Status: Acute (5) Chronic atrial fibrillation: Problem comment: - rate controlled, continue Coreg - on ASA as an outpatient Status: Acute Plan - per above - will reassess goals of care after diuresis/TTE results - sister updated at bedside, questions answered
[2023-03-25] VITALS (7 sets, daily range): BP systolic 124–161; BP diastolic 52–97; PULSE 35–58; RESP 16–20; TEMP 36.1–37; O2SAT 90–96
[2023-03-25] MEDS: OxyCODONE/APAP 5-325 TABLET 1 TAB PO ×6 (01:11→21:19)
[2023-03-25] MEDS: SILDENAFIL CITRATE 20 MG TABLET PO ×4 (01:12→21:21)
[2023-03-25] MEDS: POTASSIUM CHLORIDE 10 MEQ, LIDOCAINE 1 % 1 ML in 0.9 % SODIUM CHLORIDE 100 ml 100 ML 106 MEQ IVPB ×2 (01:48→03:30)
[2023-03-25] MEDS: POTASSIUM CHLORIDE 10 MEQ, LIDOCAINE 1 % 1 ML in 0.9 % SODIUM CHLORIDE 100 ml 100 ML 100 MEQ IVPB ×2 (05:25→06:36)
[2023-03-25] MEDS: FUROSEMIDE 10 MG/ML inj 40 MG IVP ×3 (05:30→21:22)
--- NOTE | 2023-03-25 09:11 | PC.NURSE ---
Pt is alert and oriented to self and place. When pt was asked what year it was he responded with 2002, no 2003. Pt reports 8/10 pain in back, managed with scheduled medications. Pt is on tele and is in a-fib with low ventricular rate, pt's heart rate ranged between 32-42 beats per minute throughout night, MD updated and MD ordered a hold on?pt's morning?Carvedilol and to continue to monitor. Pt denies chest pain, dizziness, light headiness. Pt was arousable to name, using urinal at bed side with no issues. Pt is pivot from chair to bed. Pt slept intermittently throughout night. ?
[2023-03-25 09:22] LABS: Hematocrit 40.2 % (37.0-53.0); Hemoglobin* 12.7 gm/dL (13.5-17.5); Mean Corpuscular HGB Conc 32 gm/dL (32-36); Mean Corpuscular Hemoglobin 30 pg (26-34); Mean Corpuscular Volume 95 fL (80-100); Platelet Count* 131 K/uL (140-440); RDW Coefficient of Variation % 16.6 % (11.5-15.5); Red Blood Count 4.22 m/uL (4.30-5.90); White Blood Count* 5.58 K/uL (4.50-11.00)
[2023-03-25] MEDS: POTASSIUM CHLORIDE 10 MEQ CAPSULE ER 20 MEQ PO ×2 (09:22→18:08)
[2023-03-25] MEDS: ASPIRIN 81 MG TABLET EC PO (09:22)
[2023-03-25] MEDS: LOSARTAN POTASSIUM 50 MG TABLET PO (09:22)
[2023-03-25] MEDS: OMEPRAZOLE 20 MG CAPSULE DR PO (09:22)
[2023-03-25] MEDS: allopurinoL 300 MG TABLET PO (09:22)
[2023-03-25 09:23] LABS: Basophils Absolute Auto 0.02 K/uL (0.00-0.30); Basophils Percent Auto 0.4 % (0.0-3.0); Eosinophils Absolute Auto 0.35 K/uL (0.00-0.50); Eosinophils Percent Auto 6.3 % (0.0-7.0); Monocytes Percent Auto 9.3 % (0.0-11.0)
[2023-03-25] MEDS: polyethylene glycoL 3350 17 GM PACK PO (09:23)
[2023-03-25] MEDS: ATORVASTATIN CALCIUM 40 MG TABLET PO (09:23)
[2023-03-25 09:25] LABS: Slide Review Reflex No
[2023-03-25 09:36] LABS: Chloride* 80 mmol/L (96-114); Potassium* 3.4 mmol/L (3.6-5.1); Sodium* 129 mmol/L (135-149)
[2023-03-25 09:39] LABS: Anion Gap 14 mEq/L (7-15); Blood Urea Nitrogen* 47 mg/dL (7-30); Carbon Dioxide* 35 mmol/L (20-32); Creatinine* 1.3 mg/dL (0.5-1.5); Est. Creatinine Clearance* 40.96; Estimated Glomerular Filt Rate 55 ml/min; Glucose* 100 mg/dL (60-115)
[2023-03-25 09:40] LABS: Calcium* 8.8 mg/dL (8.4-10.6); Magnesium* 2.4 mg/dL (1.5-2.6)
[2023-03-25 09:49] LABS: NT Pro B Type NatriureticPept* 3920 pg/mL
[2023-03-25 09:51] LABS: Troponin I* 0.05 ng/mL (0.01-0.04)
--- NOTE | 2023-03-25 10:01 | PM.IMPN1 ---
Progress Note: A&P Assessment and plan (1) Acute right-sided congestive heart failure: Problem details: - evidenced by weight gain, dyspnea, hypoxia - chronic/severe pulmonary HTN - continue IV diuresis and potassium supplementation - follow Is/Os closely - repeat TTE, follow troponin to peak Status: Acute (2) Pulmonary arterial hypertension: Problem details: - Sildenafil 20 mg 3 times daily, will continue this Status: Acute (3) Congestive heart failure: Problem details: - last TTE 05/28, will repeat 03/25: Indication for study: CHF (congestive heart failure) (HC) [I50.9 (ICD-10-CM)] Cardiac Rhythm: Atrial fibrillation.Study quality: Final Impressions: 1. Mildly increased left ventricular size, mildly increased wall thickness, low normal global systolic function, calculated EF of 50 %. 2. Right ventricular cavity size is moderately enlarged, global systolic RV function is mildly reduced. 3. Right ventricular volume and pressure overload. 4. Severe biatrial enlargement. 5. Severe tricuspid regurgitation. 6. Pulmonary artery is moderately dilated. 7. The aortic valve is calcified and trileaflet, no stenosis and mild regurgitation. 8. Severely increased estimated pulmonary pressures (94 mmhg, inclusive of RA pressure estimate of 15 mmHg). 9. Small pericardial effusion. Status: Acute (4) Chronic, continuous use of opioids: Problem details: - takes scheduled Percocet Status: Acute (5) Chronic atrial fibrillation: Problem details: - rate controlled, continue Coreg - on ASA as an outpatient Status: Acute Time Spent With Patient Total time spent: - Lovenox for ppx - needs to diuresis to baseline weight prior to d/c - sister Luis Carlos updated at bedside, questions answered Subjective Date Seen: 03/25/23 Interval history: Deven is feeling better today. He has transitioned back to RA, has no chest pain, and feels that his breathing is better. He has diuresed 1000mL from admission and has no other concerns for hospitalist team this morning. Exam Narrative: Exam Narrative: GEN: Alert and oriented, sitting comfortably in bedside chair on RA this morning, 3-4 word dyspnea HEENT: EOMIs bilaterally, no scleral icterus CV: Bradycardia, irregular, + systolic murmur R: No wheezing, fine bibasilar rales Ext: wwp, 3+ pitting edema Neuro: Nonfocal Psych: Appropriate Const: Vital Signs, click to edit/add: Vital Signs - 24 hr 03/24/23 17:42 03/24/23 20:12 03/24/23 20:15 Temperature 98.1 F Pulse Rate 47 L 47 L Pulse Rate [Pulse Oximeter] 50 L Respiratory Rate 20 Blood Pressure Blood Pressure [Ri ght Arm] Blood Pressure [Ri ght Upper Arm] 177/69 H Pulse Oximetry 89 96 97 Oxygen Delivery Me thod Room Air Oxygen Flow Rate 03/24/23 20:19 03/24/23 20:20 03/24/23 20:30 Temperature Pulse Rate 49 L 49 L Pulse Rate [Pulse Oximeter] Respiratory Rate Blood Pressure 165/80 H Blood Pressure [Ri ght Arm] Blood Pressure [Ri ght Upper Arm] Pulse Oximetry 96 96 96 Oxygen Delivery Me thod Nasal Cannula Oxygen Flow Rate 2 03/24/23 20:36 03/24/23 20:51 03/24/23 21:00 Temperature Pulse Rate 45 L 48 L 45 L Pulse Rate [Pulse Oximeter] Respiratory Rate Blood Pressure Blood Pressure [Ri ght Arm] Blood Pressure [Ri ght Upper Arm] Pulse Oximetry 95 93 94 Oxygen Delivery Me thod Oxygen Flow Rate 03/24/23 21:15 03/24/23 21:30 03/24/23 21:45 Temperature Pulse Rate 49 L 49 L 46 L Pulse Rate [Pulse Oximeter] Respiratory Rate Blood Pressure Blood Pressure [Ri ght Arm] Blood Pressure [Ri ght Upper Arm] Pulse Oximetry 95 94 89 Oxygen Delivery Me thod Oxygen Flow Rate 03/24/23 22:00 03/24/23 22:15 03/24/23 23:01 Temperature 97.0 F L Pulse Rate 41 L 47 L Pulse Rate [Pulse Oximeter] 50 L Respiratory Rate 24 Blood Pressure Blood Pressure [Ri ght Arm] 167/66 H Blood Pressure [Ri ght Upper Arm] Pulse Oximetry 91 91 95 Oxygen Delivery Me thod Nasal Cannula Oxygen Flow Rate 2 03/24/23 23:01 03/25/23 02:40 03/25/23 02:45 Temperature 97.8 F Pulse Rate 35 L Pulse Rate [Pulse Oximeter] 40 L Respiratory Rate 24 18 Blood Pressure Blood Pressure [Ri ght Arm] 124/62 Blood Pressure [Ri ght Upper Arm] Pulse Oximetry 95 96 Oxygen Delivery Me thod Nasal Cannula Nasal Cannula Oxygen Flow Rate 2 2 10/19/23 07:00 03/25/23 07:00 03/25/23 07:00 Temperature Pulse Rate 41 L Pulse Rate [Pulse Oximeter] 41 L Respiratory Rate 16 Blood Pressure Blood Pressure [Ri ght Arm] Blood Pressure [Ri ght Upper Arm] Pulse Oximetry 96 Oxygen Delivery Me thod Nasal Cannula Oxygen Flow Rate 2 03/25/23 07:00 Temperature 97.8 F Pulse Rate Pulse Rate [Pulse Oximeter] 49 L Respiratory Rate 16 Blood Pressure Blood Pressure [Ri ght Arm] 152/97 H Blood Pressure [Ri ght Upper Arm] Pulse Oximetry 96 Oxygen Delivery Me thod Nasal Cannula Oxygen Flow Rate 2 Labs Labs: Laboratory Results - last 24 hr 03/24/23 03/24/23 03/25/23 20:13 20:23 09:15 WBC 5.26 5.58 RBC 3.99 L 4.22 L Hgb 12.1 L 12.7 L Hct 38.0 40.2 MCV 95 95 MCH 30 30 MCHC 32 32 RDW Coeff of Adalberto 16.6 H 16.6 H Plt Count 132 L 131 L Neut % (Auto) 74.4 H 75.0 H Lymph % (Auto) 8.9 L 9.0 L [place] % (Auto) 8.9 9.3 Eos % (Auto) 7.4 H 6.3 Baso % (Auto) 0.4 0.4 Neut # (Auto) 3.90 4.20 Lymph # (Auto) 0.50 L 0.50 L [place] # (Auto) 0.50 0.50 Eos # (Auto) 0.40 0.35 Baso # (Auto) 0.02 0.02 Abs Immat Gran (auto) 0.00 0.00 Imm/Tot Granulo (auto) 0.0 0.0 Sodium 125 L 129 L Potassium 3.0 L 3.4 L Chloride 82 L 80 L Carbon Dioxide 30 35 H Anion Gap 13 14 BUN 46 H 47 H Creatinine 1.5 1.3 Estimated Creat Clear 35.50 40.96 Estimated GFR 46 55 Glucose 110 100 Calcium 8.4 8.8 Magnesium 2.4 Total Bilirubin 1.6 H AST 35 ALT 27 Alkaline Phosphatase 176 H Troponin I 0.04 NT-Pro-B Natriuret Pep 3800 3920 Total Protein 6.6 Albumin 4.1 SARS-CoV-2 (PCR) Negative SARS-CoV-2 Influenza Type A (PCR) Negative PCR FLU A Influenza Type B (PCR) Negative PCR FLU B
[2023-03-25] MEDS: POTASSIUM BICARB 25 MEQ EFFERVESCENT TAB PO (11:42)
[2023-03-25] MEDS: SODIUM CHLORIDE 0.9 % (FLUSH) 10 ML SYRINGE 5 ML IVF ×2 (13:52→21:21)
--- NOTE | 2023-03-25 14:41 | PC.NURSE ---
PATIENT PLEASANT AND COOPERATIVE, UP GB WITH WALKER TOLERATED FAIRLY ONLY ABLE TO WALK ABOUT IN THE ROOM, VERY TIRED TODAY, PATIENT EXPRESSED NOT GETTING MUCH SLEEP OVER THE NIGHT, EDEMA TO BLE, TELE SHOWING AFIB THAT IS BRADYCARDIC, CHRONIC BACK PAIN BUT DECLINING PAIN WHEN ASKED, SCHEDULE NORCO.
[2023-03-25 16:39] LABS: Chloride* 84 mmol/L (96-114); Sodium* 128 mmol/L (135-149)
[2023-03-25 16:42] LABS: Anion Gap 11 mEq/L (7-15); Carbon Dioxide* 33 mmol/L (20-32); Creatinine* 1.2 mg/dL (0.5-1.5); Est. Creatinine Clearance* 44.37; Estimated Glomerular Filt Rate 60 ml/min
[2023-03-25 16:43] LABS: Blood Urea Nitrogen* 49 mg/dL (7-30); Calcium* 8.6 mg/dL (8.4-10.6); Glucose* 106 mg/dL (60-115)
[2023-03-25] MEDS: POTASSIUM BICARB 25 MEQ EFFERVESCENT TAB 50 MEQ PO ×2 (19:35→21:20)
[2023-03-25] MEDS: ENOXAPARIN 30 MG/0.3ML INJ SUBCUT (21:19)
[2023-03-25] MEDS: MELATONIN 3 MG TABLET PO (21:20)
--- NOTE | 2023-03-25 23:29 | PC.NURSE ---
Pt alert, oriented, and pleasant during shift. Up to chair with 1 assist and walker. Using urinal appropriately, tolerating 2g sodium diet well. Pt reported pain in back as 9/10, scheduled pain medication given per intervention in AUG. Pt verbalized tolerating pain. O2 saturations maintaining 90-91% on room air. Patient resting in bed at end of shift.
[2023-03-26] VITALS (8 sets, daily range): BP systolic 131–181; BP diastolic 59–94; PULSE 45–62; RESP 12–20; TEMP 36.1–36.9; O2SAT 91–98
[2023-03-26] MEDS: OxyCODONE/APAP 5-325 TABLET 1 TAB PO ×6 (01:28→20:35)
[2023-03-26] MEDS: FUROSEMIDE 10 MG/ML inj 40 MG IVP (05:56)
[2023-03-26 06:18] LABS: HCO3 VBG 39 mmol/L (21-28); PCO2 VBG 51 mmHG (40-50); PO2 VBG 35.4 mmHG (25-47); pH VBG 7.497 (7.32-7.43)
[2023-03-26 06:21] LABS: Basophils Absolute Auto 0.02 K/uL (0.00-0.30); Basophils Percent Auto 0.4 % (0.0-3.0); Eosinophils Absolute Auto 0.31 K/uL (0.00-0.50); Eosinophils Percent Auto 6.3 % (0.0-7.0); Hematocrit 40.3 % (37.0-53.0); Immature Granulocytes Abs Auto 0.01 K/uL (0.00-0.30); Immature Granulocytes Pct Auto 0.2 %; Lymphocytes Percent Auto 10.4 % (20-44); Mean Corpuscular HGB Conc 32 gm/dL (32-36); Mean Corpuscular Hemoglobin 30 pg (26-34); Mean Corpuscular Volume 94 fL (80-100); Monocytes Percent Auto 12.8 % (0.0-11.0); Neutrophils Absolute Auto 3.43 K/uL (1.7-7.0); Neutrophils Percent Auto 69.9 % (42.0-72.0); Platelet Count* 160 K/uL (140-440); RDW Coefficient of Variation % 16.6 % (11.5-15.5); Red Blood Count 4.29 m/uL (4.30-5.90); White Blood Count* 4.91 K/uL (4.50-11.00)
[2023-03-26 06:24] LABS: Slide Review Reflex No
[2023-03-26 06:35] LABS: Chloride* 84 mmol/L (96-114); Potassium* 3.3 mmol/L (3.6-5.1); Sodium* 130 mmol/L (135-149)
[2023-03-26 06:38] LABS: Anion Gap 10 mEq/L (7-15); Blood Urea Nitrogen* 48 mg/dL (7-30); Calcium* 8.9 mg/dL (8.4-10.6); Carbon Dioxide* 36 mmol/L (20-32); Creatinine* 1.1 mg/dL (0.5-1.5); Est. Creatinine Clearance* 48.41; Estimated Glomerular Filt Rate 67 ml/min; Glucose* 103 mg/dL (60-115)
[2023-03-26 06:50] LABS: Troponin I* 0.06 ng/mL (0.01-0.04)
--- NOTE | 2023-03-26 06:57 | PC.NURSE ---
Shift note: Pt using urinal in bed, c/o back pain, RN treated per eMAR and pt was able to rest intermittently. 90-91% on RA, no c/o chest pain
[2023-03-26] MEDS: OMEPRAZOLE 20 MG CAPSULE DR PO (08:32)
[2023-03-26] MEDS: POTASSIUM CHLORIDE 10 MEQ CAPSULE ER 20 MEQ PO ×2 (08:32→17:38)
[2023-03-26] MEDS: ATORVASTATIN CALCIUM 40 MG TABLET PO (08:33)
[2023-03-26] MEDS: allopurinoL 300 MG TABLET PO (08:33)
[2023-03-26] MEDS: SILDENAFIL CITRATE 20 MG TABLET PO ×3 (08:33→20:33)
[2023-03-26] MEDS: LOSARTAN POTASSIUM 50 MG TABLET PO (08:33)
[2023-03-26] MEDS: ASPIRIN 81 MG TABLET EC PO (08:33)
[2023-03-26] MEDS: SODIUM CHLORIDE 0.9 % (FLUSH) 10 ML SYRINGE 5 ML IVF ×2 (08:34→20:35)
[2023-03-26] MEDS: polyethylene glycoL 3350 17 GM PACK PO (08:40)
--- NOTE | 2023-03-26 09:29 | PM.IMPN1 ---
Progress Note: A&P Assessment and plan (1) Acute right-sided congestive heart failure: Problem details: - acute on chronic disease - symptoms include weight gain, dyspnea, acute hypoxia, all improving since admission - chronic/severe pulmonary HTN - family aware of severity of illness, not interested in transitioning to comfort-focused measures at this time - follow Is/Os closely: as of 03/26/23, diuresing well and down 3.6kg (close to dry weight) - PLAN: on 03/26, transition back to oral diuretics (home dose of Torsemide 80mg BID), continue potassium supplementation, add low dose Spironolactone - if weight remains stable and electrolytes stabilize, would be appropriate for discharge home in next 1-2 days - TTE 03/26/23 with results below: Final Impressions: 1. Normal left ventricular size, moderately increased wall thickness, normal global systolic function, calculated EF of 63 %. 2. Right ventricular cavity size is severely enlarged, global systolic RV function is moderately reduced. 3. Severely enlarged left atrium. 4. The aortic valve is sclerotic, no stenosis and mild to moderate regurgitation. 5. The mitral valve is sclerotic, mild mitral regurgitation. 6. 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 7. Severe tricuspid regurgitation. 8. PISA EROA 0.79cm2 and regurgitation volume 113cc. 9. 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 10. Severely increased estimated pulmonary pressures by tricuspid regurgitation velocity and right atrial pressure (66 mmHg plus RAP). 11. 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 12. Moderate pericardial effusion. Status: Acute (2) Pulmonary arterial hypertension: Problem details: - Sildenafil 20 mg 3 times daily, will continue this in addition to measures above Status: Acute (3) Chronic, continuous use of opioids: Problem details: - takes scheduled Percocet Status: Acute (4) Chronic atrial fibrillation: Problem details: - rate controlled, continue Coreg - on ASA as an outpatient Status: Acute (5) Chronic kidney disease, stage 3: Problem details: - baseline Status: Acute Plan - per above - renally dosed Lovenox for ppx - sister updated at bedside, questions answered Subjective Date Seen: 03/26/23 Interval history: Deven continues to diurese and his breathing improves daily. He remains stable on room air at this time. His one complaint today is inability to sleep, he would like to try a medication this evening. He is tolerating therapies, still feels weak. He is down to 3.6 kg, we are continuing to replace his potassium. Exam Narrative: Exam Narrative: GEN: Alert and speaking in 3-4 word dyspnea, sitting comfortably in bedside chair HEENT: EOMIs bilaterally, no scleral icterus CV: Bradycardic, irregular, systolic murmur R: No wheezing, fine bibasilar rales are improving Ext: Dystrophic toenails bilaterally, 1+ edema bilaterally with significant improvement from admission Neuro: Nonfocal Psych: Appropriate Const: Vital Signs, click to edit/add: Vital Signs - 24 hr 03/25/23 11:00 03/25/23 15:00 03/25/23 15:00 Temperature 98.0 F Pulse Rate 49 L Pulse Rate [Pulse Oximeter] 58 L Respiratory Rate 18 18 Blood Pressure [Le ft Arm] Blood Pressure [Ri ght Arm] 138/61 Pulse Oximetry 92 91 Oxygen Delivery Me thod Room Air Room Air 03/25/23 15:00 03/25/23 15:00 03/25/23 19:00 Temperature 96.9 F L 98.6 F Pulse Rate Pulse Rate [Pulse Oximeter] 43 L 43 L 54 L Respiratory Rate 18 16 Blood Pressure [Le ft Arm] 146/52 H 161/81 H Blood Pressure [Ri ght Arm] Pulse Oximetry 91 91 Oxygen Delivery Ky thod Room Air Room Air 03/25/23 23:00 03/25/23 23:00 03/25/23 23:00 Temperature Pulse Rate 51 L Pulse Rate [Pulse Oximeter] 51 L Respiratory Rate 16 20 Blood Pressure [Le ft Arm] Blood Pressure [Ri ght Arm] Pulse Oximetry 90 Oxygen Delivery Ky thod Room Air 03/25/23 23:00 03/26/23 03:00 03/26/23 07:00 Temperature 98.5 F 98.5 F Pulse Rate Pulse Rate [Pulse Oximeter] 51 L 50 L 49 L Respiratory Rate 20 20 16 Blood Pressure [Le ft Arm] 153/64 H Blood Pressure [Ri ght Arm] Pulse Oximetry 90 91 Oxygen Delivery Me thod Room Air Room Air 03/26/23 07:00 03/26/23 07:38 03/26/23 09:14 Temperature 98.1 F Pulse Rate 62 Pulse Rate [Pulse Oximeter] 49 L Respiratory Rate 16 16 Blood Pressure [Le ft Arm] 168/68 H Blood Pressure [Ri ght Arm] Pulse Oximetry 95 95 Oxygen Delivery Me thod Room Air Room Air Labs Labs: Laboratory Results - last 24 hr 03/25/23 03/25/23 03/26/23 09:15 16:08 06:02 WBC 4.91 RBC 4.29 L Hgb 13.0 L Hct 40.3 MCV 94 MCH 30 MCHC 32 RDW Coeff of Adalberto 16.6 H Plt Count 160 Neut % (Auto) 69.9 Lymph % (Auto) 10.4 L [place] % (Auto) 12.8 H Eos % (Auto) 6.3 Baso % (Auto) 0.4 Neut # (Auto) 3.43 Lymph # (Auto) 0.50 L [place] # (Auto) 0.60 Eos # (Auto) 0.31 Baso # (Auto) 0.02 Abs Immat Gran (auto) 0.01 Imm/Tot Granulo (auto) 0.2 VBG pH 7.497 H VBG pCO2 51 H VBG pO2 35.4 VBG HCO3 39 H Sodium 129 L 128 L 130 L Potassium 3.4 L 3.0 L 3.3 L Chloride 80 L 84 L 84 L Carbon Dioxide 35 H 33 H 36 H Anion Gap 14 11 10 BUN 47 H 49 H 48 H Creatinine 1.3 1.2 1.1 Estimated Creat Clear 40.96 44.37 48.41 Estimated GFR 55 60 67 Glucose 100 106 103 Calcium 8.8 8.6 8.9 Magnesium 2.4 Troponin I 0.05 H 0.06 H* NT-Pro-B Natriuret Pep 3925
[2023-03-26] MEDS: POTASSIUM BICARB 25 MEQ EFFERVESCENT TAB PO ×3 (09:56→13:45)
[2023-03-26] MEDS: SPIRONOLACTONE 25 MG TABLET PO (09:56)
[2023-03-26] MEDS: TORSEMIDE 20 MG TABLET 80 MG PO (13:45)
--- NOTE | 2023-03-26 15:39 | NUTR.NU ---
Reviewed pt's understanding of low sodium diet in relation to CHF. Pt able to described sources of higher sodium foods. Does have meals provided by assisted living and has not asked them if the meals or low sodium but thinks he eats pretty low sodium meals. States his sister goes through the menus and does the ordering for him and she is very cautious about the salt. Pt previously received education and written materials in 05/2022. Did not from additional written materials at this visit. Good compliance noted.
--- NOTE | 2023-03-26 18:23 | PC.NURSE ---
End of Shift: Patient pleasant and cooperative. Patient hypertensive but stable, lungs clear this afternoon, BS WNL, IV SL and intact. Patient 1 assist, walker, gb. Patient rates pain at most 8/10, scheduled pain meds given. Patient urinating in toilet and using urinal. Patient has had several loose stools. Patient tolerating regular diet and has been up in chair.
[2023-03-26] MEDS: MELATONIN 3 MG TABLET PO (20:33)
[2023-03-26] MEDS: ENOXAPARIN 30 MG/0.3ML INJ SUBCUT (20:34)
[2023-03-26] MEDS: ACETAMINOPHEN 325 MG TABLET 650 MG PO (20:34)
[2023-03-26] MEDS: TRAZODONE HCL 50 MG TABLET PO (23:25)
[2023-03-27] VITALS (11 sets, daily range): BP systolic 109–150; BP diastolic 42–77; PULSE 48–59; RESP 16–20; TEMP 36.1–36.6; O2SAT 91–96
[2023-03-27] MEDS: OxyCODONE/APAP 5-325 TABLET 1 TAB PO ×6 (01:17→20:39)
[2023-03-27 06:56] LABS: Basophils Absolute Auto 0.03 K/uL (0.00-0.30); Basophils Percent Auto 0.6 % (0.0-3.0); Eosinophils Percent Auto 7.9 % (0.0-7.0); Hematocrit 41.7 % (37.0-53.0); Hemoglobin* 13.4 gm/dL (13.5-17.5); Immature Granulocytes Abs Auto 0.01 K/uL (0.00-0.30); Immature Granulocytes Pct Auto 0.2 %; Lymphocytes Percent Auto 14.3 % (20-44); Mean Corpuscular HGB Conc 32 gm/dL (32-36); Mean Corpuscular Hemoglobin 30 pg (26-34); Mean Corpuscular Volume 94 fL (80-100); Monocytes Percent Auto 14.5 % (0.0-11.0); Neutrophils Percent Auto 62.5 % (42.0-72.0); Platelet Count* 173 K/uL (140-440); Red Blood Count 4.42 m/uL (4.30-5.90); White Blood Count* 4.96 K/uL (4.50-11.00)
--- NOTE | 2023-03-27 07:07 | PC.NURSE ---
: pleasant and cooperative. Calls appropriately. A x 1 with gb and walker. Uses urinal at bedside. Tele: Tyler Lopez, [place]. Pt stated he was pleased with the trial of Trazodone at . ?
[2023-03-27 07:11] LABS: Slide Review Reflex No
[2023-03-27 07:13] LABS: Chloride* 85 mmol/L (96-114); Potassium* 3.8 mmol/L (3.6-5.1); Sodium* 129 mmol/L (135-149)
[2023-03-27 07:15] LABS: Creatinine* 1.1 mg/dL (0.5-1.5); Est. Creatinine Clearance* 48.41; Estimated Glomerular Filt Rate 67 ml/min
[2023-03-27 07:16] LABS: Anion Gap 9 mEq/L (7-15); Blood Urea Nitrogen* 48 mg/dL (7-30); Calcium* 8.8 mg/dL (8.4-10.6); Carbon Dioxide* 35 mmol/L (20-32); Glucose* 90 mg/dL (60-115)
[2023-03-27] MEDS: TORSEMIDE 20 MG TABLET 80 MG PO ×2 (08:48→14:48)
[2023-03-27] MEDS: POTASSIUM CHLORIDE 10 MEQ CAPSULE ER 20 MEQ PO ×2 (08:48→17:59)
[2023-03-27] MEDS: SODIUM CHLORIDE 0.9 % (FLUSH) 10 ML SYRINGE 5 ML IVF ×2 (08:51→20:39)
[2023-03-27] MEDS: allopurinoL 300 MG TABLET PO (09:00)
[2023-03-27] MEDS: ASPIRIN 81 MG TABLET EC PO (09:01)
[2023-03-27] MEDS: OMEPRAZOLE 20 MG CAPSULE DR PO (09:02)
[2023-03-27] MEDS: LOSARTAN POTASSIUM 50 MG TABLET PO (09:02)
[2023-03-27] MEDS: polyethylene glycoL 3350 17 GM PACK PO (09:03)
[2023-03-27] MEDS: SILDENAFIL CITRATE 20 MG TABLET PO ×3 (09:05→20:39)
[2023-03-27] MEDS: ATORVASTATIN CALCIUM 40 MG TABLET PO (09:06)
[2023-03-27] MEDS: SPIRONOLACTONE 25 MG TABLET PO (09:06)
--- NOTE | 2023-03-27 09:57 | PC.NURSE ---
PATIENT REFUSED BREAKFAST WHEN APPROACHED EARLIER THIS MORNING THOUGH DID ACCEPT BREAKFAST TRAY AFTER 0900 WHEN REAPPROACHED. HE IS SEATED IN RECLINER AT THIS TIME WITH BILATERAL SAFIA STOCKINGS AND SCDS IN PLACE- REMOVED FOR 1 HOUR THIS MORNING PER PROTOCOL. CALL LIGHT WITHIN REACH. LUNG SOUNDS NOTED TO BE CLEAR TO ALL LOBES BILATERALLY. BOWEL SOUNDS ACTIVE X 4 WITH LAST BOWEL MOVEMENT DOCUMENTED 03/26/23.
--- NOTE | 2023-03-27 13:43 | P.IMPN_ITS ---
Progress Note: A&P Assessment and plan (1) Acute right-sided congestive heart failure: Problem details: - acute on chronic disease - symptoms include weight gain, dyspnea, acute hypoxia, all improving since admission - chronic/severe pulmonary HTN - family aware of severity of illness, not interested in transitioning to comfort-focused measures at this time - follow Is/Os closely: as of 03/26/23, diuresing well and down 3.6kg (close to dry weight) - PLAN: on 03/26, transition back to oral diuretics (home dose of Torsemide 80mg BID), continue potassium supplementation, add low dose Spironolactone - if weight remains stable and electrolytes stabilize, would be appropriate for discharge home in next day or so. - TTE 03/26/23 with results below: Final Impressions: 1. Normal left ventricular size, moderately increased wall thickness, normal global systolic function, calculated EF of 63 %. 2. Right ventricular cavity size is severely enlarged, global systolic RV function is moderately reduced. 3. Severely enlarged left atrium. 4. The aortic valve is sclerotic, no stenosis and mild to moderate regurgitation. 5. The mitral valve is sclerotic, mild mitral regurgitation. 6. 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 7. Severe tricuspid regurgitation. 8. PISA EROA 0.79cm2 and regurgitation volume 113cc. 9. 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 10. Severely increased estimated pulmonary pressures by tricuspid regurgitation velocity and right atrial pressure (66 mmHg plus RAP). 11. 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 12. Moderate pericardial effusion. Status: Acute (2) Pulmonary arterial hypertension: Problem details: - Sildenafil 20 mg 3 times daily, will continue this in addition to measures above Status: Acute (3) Chronic, continuous use of opioids: Problem details: - takes scheduled Percocet Status: Acute (4) Chronic atrial fibrillation: Problem details: - rate controlled, continue Coreg - on ASA as an outpatient Status: Acute (5) Chronic kidney disease, stage 3: Problem details: - baseline Status: Acute Plan 1. Continue with plan as specified above. 2. Answered patient's questions to satisfaction. Time Spent With Patient Total time spent: 40 minutes Subjective Time Seen by Provider: 08:15 Date Seen: 03/27/23 Interval history: Deven continues to diurese and his breathing improves daily. He remains stable on room air at this time. His one complaint today is inability to sleep, he would like to try a medication this evening. He is tolerating therapies, still feels weak. He is down to 4.7 kg, from 84.9 kg down to 80.2 kg, we are continuing to replace his potassium. Exam Narrative: Exam Narrative: Examined patient in his hospital room. Appears comfortable no acute distress. Alert and oriented to self, place, time, situation. Friendly, articulate, talkative. Lungs are clear save some fine end inspiratory rales bibasilarly. Heart tones with regular rhythm. Abdomen with active bowel sounds, soft, nontender. Extremities still with edema. No focal motor neurologic deficits. Const: Vital Signs, click to edit/add: Vital Signs - 24 hr 03/26/23 15:00 03/26/23 15:00 03/26/23 15:00 Temperature 97.1 F L Pulse Rate 54 L Pulse Rate [Pulse Oximeter] 52 L 52 L Respiratory Rate 12 12 Blood Pressure [Le ft Arm] 181/94 H Pulse Oximetry 98 [facility] 03/26/23 15:00 03/26/23 20:49 03/26/23 23:00 Temperature 97 F L Pulse Rate 47 L Pulse Rate [Pulse Oximeter] 46 L Respiratory Rate 12 14 Blood Pressure [Le ft Arm] 131/68 Pulse Oximetry 98 96 Oxygen Delivery [facility] Room Air Room Air 03/26/23 23:00 03/26/23 23:00 03/26/23 23:00 Temperature 97.1 F L Pulse Rate Pulse Rate [Pulse Oximeter] 45 L 45 L Respiratory Rate 20 20 20 Blood Pressure [Le ft Arm] 170/68 H Pulse Oximetry 96 96 [facility] Room Air 03/27/23 04:38 03/27/23 07:00 03/27/23 07:00 Temperature 97.3 F L 97.8 F Pulse Rate Pulse Rate [Pulse Oximeter] 49 L 52 L Respiratory Rate 20 16 16 Blood Pressure [Le ft Arm] 142/69 H 150/55 H Pulse Oximetry 95 96 96 [facility] Room Air Room Air 03/27/23 07:37 03/27/23 11:28 Temperature 96.9 F L Pulse Rate 59 L Pulse Rate [Pulse Oximeter] 55 L Respiratory Rate 16 Blood Pressure [Le ft Arm] 109/42 L Pulse Oximetry 91 Oxygen Delivery Me thod Room Air Documenting provider has reviewed patient's vital signs: yes Labs Labs: Laboratory Results - last 24 hr 03/27/23 05:38 WBC 4.96 RBC 4.42 Hgb 13.4 L Hct 41.7 MCV 94 MCH 30 MCHC 32 RDW Coeff of Adalberto 17.0 H Plt Count 173 Neut % (Auto) 62.5 Lymph % (Auto) 14.3 L [place] % (Auto) 14.5 H Eos % (Auto) 7.9 H Baso % (Auto) 0.6 Neut # (Auto) 3.10 Lymph # (Auto) 0.70 L [place] # (Auto) 0.70 Eos # (Auto) 0.40 Baso # (Auto) 0.03 Abs Immat Gran (auto) 0.01 Imm/Tot Granulo (auto) 0.2 Sodium 129 L Potassium 3.8 Chloride 85 L Carbon Dioxide 35 H Anion Gap 9 BUN 48 H Creatinine 1.1 Estimated Creat Clear 48.41 Estimated GFR 67 Glucose 90 Calcium 8.8
--- NOTE | 2023-03-27 18:24 | PC.NURSE ---
END OF SHIFT NOTE: PATIENT HAS HAD NO COMPLAINTS OF SHORTNESS OF BREATH OR CP NOTED THROUGHOUT THE SHIFT WITH NO EDEMA NOTED. HE HAS HAD NO SPECIFIC C/O PAIN THOUGH HAS HX OF CHRONIC LOWER BACK PAIN WITH SCHEDULED PERCOCET ADMINISTERED FOR PAIN MANAGEMENT. LUNG SOUNDS HAVE BEEN CLEAR TO ALL LOBES BILATERALLY AND PATIENT HAS HAD NO C/O N/V. BOWEL SOUNDS ACTIVE IN ALL FOUR QUADRANTS WITH LAST BM OF 03/26/23. PATIENT TAKES SCHEDULED MIRALAX DAILY. HE HAS BEEN CONTINENT OF URINAL AT BEDSIDE AND IS ABLE TO REPOSITION INDEPENDENTLY WHEN IN BED. ASSIST OF 1 WITH TRANSFERRING AND AMBULATION USING FWW AND GB. PATIENT UP TO RECLINER FOR ALL MEALS TODAY. PATIENT NEEDS REMINDERS REGARDING CURRENT FLUID RESTRICTION OF 2000 ML ORDERED WELL EDUCATION OF WHY THIS HAS BEEN ORDERED HE HAS BEEN NOTED TO BE FREQUENTLY ASKING ABOUT FLUID RESTRICTION. HE HAS HAD 1250 ML PO FLUID INTAKE SO FAR TODAY. HE IS CURRENTLY REFUSING TO WEAR BOTH SCDS AND TEDS DESPITE THIS [employer] PLATER PROVIDING EDUCATION REGARDING IMPORTANCE OF THESE TO HELP PREVENT THROMBOSIS. PATIENT STATING, I PUT THEM ON IN THE MORNING AND TAKE THEM OFF AT NIGHT WHEN REFERRING TO [employer] (PER HIS ROUTINE AT [facility]). PATIENT DID WEAR S[employer] STOCKINGS AND SCDS THROUGHOUT THE DAY TODAY UP UNTIL 1800. PATIENT ATE 100% OF SUPPER. BED AND CHAIR ALARMS UTILIZED PATIENT IS A FALL RISK. DRY SKIN NOTED TO BOTTOM OF FEET WITH LOTION APPLIED. UNDERWEAR CHANGED AT BEDTIME ALONG WITH JOSÉ CARES PROVIDED. LAST SET OF VS: B/P 138/67, P 58, R 16, T 96.9, O2 SAT 91% ON RA. PATIENT HAS BEEN NOTED TO BE BRADYCARDIC SINCE ADMISSION. IV TO R AC SALINE LOCKED- IV DOES HAVE SOME DRIED BLOOD UNDER DRESSING THOUGH IV IS PATENT WHEN FLUSHED.
[2023-03-27] MEDS: ENOXAPARIN 30 MG/0.3ML INJ SUBCUT (20:39)
[2023-03-27] MEDS: TRAZODONE HCL 50 MG TABLET PO (23:45)
[2023-03-28] VITALS (8 sets, daily range): BP systolic 127–157; BP diastolic 56–84; PULSE 53–70; RESP 18; TEMP 36.1–36.8; O2SAT 93–95
[2023-03-28] MEDS: OxyCODONE/APAP 5-325 TABLET 1 TAB PO ×6 (01:41→20:23)
--- NOTE | 2023-03-28 06:50 | PC.NURSE ---
: Pleasant and cooperative. Uses urinal at bedside. Pt verbalized the trazodone has helped him sleep greatly. ?
[2023-03-28] MEDS: POTASSIUM CHLORIDE 10 MEQ CAPSULE ER 20 MEQ PO ×2 (08:37→17:19)
[2023-03-28] MEDS: TORSEMIDE 20 MG TABLET 80 MG PO (08:38)
[2023-03-28] MEDS: SODIUM CHLORIDE 0.9 % (FLUSH) 10 ML SYRINGE 5 ML IVF ×2 (08:40→20:24)
[2023-03-28] MEDS: polyethylene glycoL 3350 17 GM PACK PO (09:05)
[2023-03-28] MEDS: ATORVASTATIN CALCIUM 40 MG TABLET PO (09:06)
[2023-03-28] MEDS: ASPIRIN 81 MG TABLET EC PO (09:06)
[2023-03-28] MEDS: allopurinoL 300 MG TABLET PO (09:06)
[2023-03-28] MEDS: LOSARTAN POTASSIUM 50 MG TABLET PO (09:07)
[2023-03-28] MEDS: OMEPRAZOLE 20 MG CAPSULE DR PO (09:07)
[2023-03-28] MEDS: SPIRONOLACTONE 25 MG TABLET PO (09:08)
[2023-03-28] MEDS: SILDENAFIL CITRATE 20 MG TABLET PO ×3 (09:09→20:24)
[2023-03-28 10:03] LABS: Hemoglobin* 14.2 gm/dL (13.5-17.5)
[2023-03-28 10:16] LABS: Albumin* 4.3 g/dL (3.3-5.0); Chloride* 91 mmol/L (96-114); Potassium* 3.6 mmol/L (3.6-5.1); Sodium* 134 mmol/L (135-149)
[2023-03-28 10:19] LABS: Anion Gap 10 mEq/L (7-15); Blood Urea Nitrogen* 44 mg/dL (7-30); Calcium* 9.1 mg/dL (8.4-10.6); Carbon Dioxide* 33 mmol/L (20-32); Creatinine* 1.1 mg/dL (0.5-1.5); Est. Creatinine Clearance* 48.41; Estimated Glomerular Filt Rate 67 ml/min; Glucose* 138 mg/dL (60-115); Phosphorus* 3.1 mg/dL (2.5-4.5)
[2023-03-28 10:31] LABS: Troponin I* 0.05 ng/mL (0.01-0.04)
--- NOTE | 2023-03-28 14:46 | PM.IMPN1 ---
Progress Note: A&P Assessment and plan (1) Acute right-sided congestive heart failure: Problem details: - acute on chronic disease - symptoms include weight gain, dyspnea, acute hypoxia, all improving since admission - chronic/severe pulmonary HTN - family aware of severity of illness, not interested in transitioning to comfort-focused measures at this time - follow Is/Os closely: as of 03/28/23, diuresing well and down 7kg - will cut torsemide dose in half, has been on 80 mg b.i.d., food decreased to 80 mg once daily. - will continue potassium supplementation, and low dose Spironolactone - if weight stabilizes and electrolytes stabilize, would be appropriate for discharge home in near future - TTE 03/26/23 with results below: Final Impressions: 1. Normal left ventricular size, moderately increased wall thickness, normal global systolic function, calculated EF of 63 %. 2. Right ventricular cavity size is severely enlarged, global systolic RV function is moderately reduced. 3. Severely enlarged left atrium. 4. The aortic valve is sclerotic, no stenosis and mild to moderate regurgitation. 5. The mitral valve is sclerotic, mild mitral regurgitation. 6. 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 7. Severe tricuspid regurgitation. 8. PISA EROA 0.79cm2 and regurgitation volume 113cc. 9. 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 10. Severely increased estimated pulmonary pressures by tricuspid regurgitation velocity and right atrial pressure (66 mmHg plus RAP). 11. 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 12. Moderate pericardial effusion. Status: Acute (2) Pulmonary arterial hypertension: Problem details: - Sildenafil 20 mg 3 times daily, will continue this in addition to measures above - continue with diuresing efforts. Status: Acute (3) Chronic, continuous use of opioids: Problem details: - takes scheduled Percocet Status: Acute (4) Chronic atrial fibrillation: Problem details: - rate controlled, continue Coreg - on ASA as an outpatient Status: Acute (5) Chronic kidney disease, stage 3: Problem details: - baseline Status: Acute Plan 1. Reviewed impression with patient 2. Patient agree with above stated plans and recommendations Time Spent With Patient Total time spent: 40 minutes Subjective Time Seen by Provider: 09:30 Date Seen: 03/28/23 Interval history: Hospital day 5. Patient continues to diurese and his breathing improves daily. He remains stable on room air at this time. He is tolerating therapies, still feels weak. Denies orthostasis or lightheadedness. He is concerned because I instituted at 2 L per 24 hour fluid restriction on him yesterday, due to unrelenting hyponatremia. Remarkably his serum sodium improved up to 134 today from 129 yesterday. His weight is down by 7.9 kg, from 84.9 kg down to 77 kg, and we are continuing to replace his potassium. Exam Narrative: Exam Narrative: Examine him in his room. Appears comfortable in no acute distress. Vision and hearing are adequate. Alert and oriented to self, place, time, situation. Response to questions but not real talkative. Lungs clear to auscultation. Heart tones with regular rhythm. Abdomen benign. Trace dependent edema bilaterally. Moves all 4 extremities. No focal motor neurologic deficits. Const: Vital Signs, click to edit/add: Vital Signs - 24 hr 03/27/23 14:51 03/27/23 15:00 03/27/23 17:18 Temperature 96.9 F L Pulse Rate 48 L Pulse Rate [Pulse Oximeter] 58 L Respiratory Rate 16 16 Blood Pressure [Le ft Arm] 138/67 Pulse Oximetry 91 91 Oxygen Delivery Ut thod Room Air Room Air 03/27/23 20:15 03/27/23 22:32 03/27/23 22:45 Temperature 97.1 F L 97 F L Pulse Rate Pulse Rate [Pulse Oximeter] 52 L 50 L 50 L Respiratory Rate 16 18 18 Blood Pressure [Le ft Arm] 146/55 H 139/77 Pulse Oximetry 95 96 Oxygen Delivery Ut thod Room Air Room Air 03/27/23 22:45 03/27/23 22:58 03/28/23 02:05 Temperature 97.1 F L Pulse Rate 59 L Pulse Rate [Pulse Oximeter] 54 L Respiratory Rate 18 Blood Pressure [Le ft Arm] 157/61 H Pulse Oximetry 96 95 Oxygen Delivery Ut thod Room Air Room Air 03/28/23 07:00 03/28/23 07:00 03/28/23 08:25 Temperature 97.3 F L Pulse Rate 70 Pulse Rate [Pulse Oximeter] 63 Respiratory Rate 18 18 Blood Pressure [Le ft Arm] 156/84 H Pulse Oximetry 95 95 Oxygen Delivery Ut thod Room Air Room Air 03/28/23 11:41 Temperature 98.3 F Pulse Rate Pulse Rate [Pulse Oximeter] 57 L Respiratory Rate 18 Blood Pressure [Le ft Arm] 140/68 H Pulse Oximetry 93 Oxygen Delivery Me thod Room Air Documenting provider has reviewed patient's vital signs: yes Labs Labs: Laboratory Results - last 24 hr 03/28/23 09:57 Hgb 14.2 Sodium 134 L Potassium 3.6 Chloride 91 L Carbon Dioxide 33 H Anion Gap 10 BUN 44 H Creatinine 1.1 Estimated Creat Clear 48.41 Estimated GFR 67 Glucose 138 H Calcium 9.1 Phosphorus 3.1 Troponin I 0.05 H Albumin 4.3
--- NOTE | 2023-03-28 18:34 | PC.NURSE ---
SHIFT NOTE: PATIENT HAS BEEN DENYING PAIN WHEN ASKED WITH NO NONVERBAL INDICATIONS NOTED. PATIENT HAS BEEN BRADYCARDIC AT BASELINE SINCE ADMISSION WITH LAST PULSE OF 54. HE REMAINS ON RA WITH O2 SAT OF 94%. PATIENT HAS BEEN CONTINENT OF BOWEL AND BLADDER AND USES BEDSIDE URINAL WITH STAFF PROVIDING EMPTYING. PATIENT HAS BEEN SOMEWHAT COMPLIANT WITH SCDS OVER THE SHIFT HE DID ALLOW NURSE TO PUT PUMPS ON THOUGH WILL ALSO REMOVE ON HIS OWN DESPITE EDUCATION OF WHY PUMPS HAVE BEEN ORDERED. PATIENT REMAINS ON FLUID RESTRICTION OF 2L DAILY. NO N/V OR C/O CP NOTED THIS SHIFT. PATIENT TRANSFERS AND AMBULATES WITH ASSIST OF 1 USING GAIT BELT AND FWW. LUNG SOUNDS NOTED TO BE CLEAR TO ALL LOBES BILATERALLY WITH NO COUGH NOTED OR REPORTED. BOWEL SOUNDS ACTIVE X 4 WITH LAST BM NOTED TO BE THIS AFTERNOON. LOTION APPLIED TO BILATERAL FEET DUE TO CONTINUED DRY SKIN NOTED TO THIS AREA.
[2023-03-28] MEDS: ENOXAPARIN 30 MG/0.3ML INJ SUBCUT (20:24)
[2023-03-29] MEDS: OxyCODONE/APAP 5-325 TABLET 1 TAB PO ×3 (00:14→08:48)
[2023-03-29] MEDS: MELATONIN 3 MG TABLET PO (00:15)
[2023-03-29] MEDS: TRAZODONE HCL 50 MG TABLET PO (00:15)
[2023-03-29 02:53] VITALS: BP 148/58; PULSE 52; RESP 18; O2SAT 91
[2023-03-29 06:33] LABS: Chloride* 95 mmol/L (96-114)
[2023-03-29 06:34] LABS: Potassium* 3.7 mmol/L (3.6-5.1); Sodium* 136 mmol/L (135-149)
[2023-03-29 06:36] LABS: Creatinine* 1.2 mg/dL (0.5-1.5); Est. Creatinine Clearance* 44.37; Estimated Glomerular Filt Rate 60 ml/min
[2023-03-29 06:37] LABS: Anion Gap 8 mEq/L (7-15); Blood Urea Nitrogen* 46 mg/dL (7-30); Calcium* 8.9 mg/dL (8.4-10.6); Carbon Dioxide* 33 mmol/L (20-32); Glucose* 97 mg/dL (60-115)
[2023-03-29 07:49] LABS: Albumin* 3.8 g/dL (3.3-5.0)
[2023-03-29 07:52] LABS: Phosphorus* 3.6 mg/dL (2.5-4.5)
[2023-03-29 08:00] VITALS: PULSE 62
[2023-03-29 08:30] VITALS: BP 172/78; PULSE 65; RESP 20; TEMP 36.8; O2SAT 96
[2023-03-29] MEDS: POTASSIUM CHLORIDE 10 MEQ CAPSULE ER 20 MEQ PO (08:47)
[2023-03-29] MEDS: OMEPRAZOLE 20 MG CAPSULE DR PO (08:48)
[2023-03-29] MEDS: ASPIRIN 81 MG TABLET EC PO (08:48)
[2023-03-29] MEDS: allopurinoL 300 MG TABLET PO (08:48)
[2023-03-29] MEDS: ATORVASTATIN CALCIUM 40 MG TABLET PO (08:48)
[2023-03-29] MEDS: TORSEMIDE 20 MG TABLET 80 MG PO (08:48)
[2023-03-29] MEDS: LOSARTAN POTASSIUM 50 MG TABLET PO (08:48)
[2023-03-29] MEDS: SPIRONOLACTONE 25 MG TABLET PO (08:48)
[2023-03-29] MEDS: SILDENAFIL CITRATE 20 MG TABLET PO (08:49)
[2023-03-29] MEDS: SODIUM CHLORIDE 0.9 % (FLUSH) 10 ML SYRINGE 5 ML IVF (08:51)
--- NOTE | 2023-03-29 14:35 | PC.NURSE ---
Discharge Note: The patient discharged back to [facility] early this afternoon with his sister. All discharge instructions were reviewed regarding new diuretics, reducing salt intake, and follow up appointments. His IV was removed.. all belongings were sent with the patient. Al questions were answered prior to discharge. Carli KNIGHT
--- NOTE | 2023-04-01 15:59 | P.DS_ITS ---
DS: Providers Provider Time Seen by Provider: 09:00 Date Seen: 04/01/23 Date of admission: 03/24/23 23:40 Primary care physician: Ervin Chapin MD Admitting Clinician: Abigail Dukes MD Consults: 03/24/23 23:40 Consult to Physical Therapy [CONS] Routine Comment: Reason(s) for PT Consult:: Evaluate and Treat Any Restrictions?:: No Restrictions Consult to Respiratory Therapy [CONS] Routine Comment: Reason(s) for RT Consult:: Consult Consult to Sander Operator [CONS] Routine Comment: Reason for Consult:: Discharge Planning Needs 03/24/23 23:43 Consult to Occupational Therapy [CONS] Routine Comment: Reason(s) for OT Consult:: Evaluate and Treat Any Restrictions?:: No Restrictions 03/25/23 04:57 Consult to Occupational Therapy [CONS] Routine Comment: Reason(s) for OT Consult:: Evaluate and Treat Any Restrictions?:: No Restrictions Consult to Physical Therapy [CONS] Routine Comment: Reason(s) for PT Consult:: Evaluate and Treat Any Restrictions?:: No Restrictions Attending Physician on discharge: Tammy house MD Date of Discharge: 03/29/23 DS: Diagnosis Discharge Diagnosis (1) Acute right-sided congestive heart failure: Status: Acute Problem details: - acute on chronic disease - symptoms include weight gain, dyspnea, acute hypoxia, all improving since admission - chronic/severe pulmonary HTN - family aware of severity of illness, not interested in transitioning to comfort-focused measures at this time - follow Is/Os closely: as of 03/28/23, diuresing well and down 7kg - will cut torsemide dose in half, has been on 80 mg b.i.d., food decreased to 80 mg once daily. - will continue potassium supplementation, and low dose Spironolactone - if weight stabilizes and electrolytes stabilize, would be appropriate for discharge home in near future - TTE 03/26/23 with results below: Final Impressions: 1. Normal left ventricular size, moderately increased wall thickness, normal global systolic function, calculated EF of 63 %. 2. Right ventricular cavity size is severely enlarged, global systolic RV function is moderately reduced. 3. Severely enlarged left atrium. 4. The aortic valve is sclerotic, no stenosis and mild to moderate regurgitation. 5. The mitral valve is sclerotic, mild mitral regurgitation. 6. 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 7. Severe tricuspid regurgitation. 8. PISA EROA 0.79cm2 and regurgitation volume 113cc. 9. 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 10. Severely increased estimated pulmonary pressures by tricuspid regurgitation velocity and right atrial pressure (66 mmHg plus RAP). 11. 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 12. Moderate pericardial effusion. (2) Severe tricuspid valve regurgitation: Status: Acute Problem details: May need to consider possible valve replacement therapy with cardiology consultation in outpatient setting (3) Chronic right-sided heart failure: Status: Acute (4) Pulmonary arterial hypertension: Status: Acute Problem details: - Sildenafil 20 mg 3 times daily, will continue this in addition to measures above - continue with diuresing efforts. (5) Chronic atrial fibrillation: Status: Acute Problem details: - rate controlled, continue Coreg - on ASA as an outpatient (6) Acute kidney injury (nontraumatic): Status: Acute (7) Chronic kidney disease, stage 3: Status: Acute Problem details: - baseline (8) Chronic back pain: Status: Acute Problem details: According to patient, subsequent to back surgery (9) Chronic, continuous use of opioids: Status: Acute Problem details: - takes scheduled Percocet DS: Summary Hospital Course Hospital Course: History of present illness: ?Mac Beckham is a 82 year old male who presented to the emergency room tonight complaining of shortness of breath. He has noted symptoms over the past week or so, in addition to an 8 lb weight gain and swollen ankles. He has known CHF and pulmonary hypertension; typically on torsemide at home and also received 3 days of metolazone this week (lives at [facility]). Making urine. He has intermittently had some chest discomfort over the past few days. ?ER course and findings: - O2 saturations <90% on RA upon arrival - EKG reveals atrial fibrillation (history of this per chart review), rate in the 40s with PVCs, mild ST depression in V6, and prolonged QT - troponin 0.04, BNP 3800 - creatinine 1.6, close to outpatient baseline - cardiomegaly and vascular congestion consistent with pulmonary edema on chest x-ray ?Upon arrival to the floor, Deven is feeling better. Sister Luis Carlos is present for H&P.? Initially treated with IV furosemide later switched to oral torsemide. Potassium supplementations warranted. Acute kidney injury improved. Diuresed a total of 8 kg while in hospital, admission weight 85 kg and discharge weight 76.8 kg. Will likely need ongoing monitoring of his heart failure status including kidney function, weight, symptoms. Discussed with patient how unless he gets his tricuspid valve replace his condition will be progressive and in time medications will no longer be sufficient to keep him comfortable. Time Spent with Patient Time attestation: Total time spent providing and/or coordinating discharge services: Time spent: Greater than 30 minutes Exam Narrative: Exam Narrative: Examine him in his room. Appears comfortable in no acute distress. Vision and hearing are adequate. Alert and oriented to self, place, time, situation. Response to questions but not real talkative. Lungs clear to auscultation. Heart tones with regular rhythm. Abdomen benign. No dependent edema bilaterally. Moves all 4 extremities. No focal motor neurologic deficits. Const: Documenting provider has reviewed patient's vital signs: yes DS: Data Imaging Echo: Radiologist's impression: 03/24/2023 1. Normal LV chamber size, moderate left ventricular hypertrophy, normal global function, EF 63%. 2. Severe enlargement of the right ventricular cavity with moderate reduction and right ventricular function. 3. Severe enlargement of left atrium. 4. Mild to moderate aortic regurgitation. 5. Mild mitral valve regurgitation. 6. Tethered tricuspid valve with severe tricuspid valve regurgitation. 7. Severely increased estimated pulmonary pressures, 66 mmHg plus the right atrial pressure. 8. Moderate pericardial effusion without obvious tamponade. Chest x-ray: Attestation: I have reviewed the pertinent imaging results. Radiologist's impression: 03/24/2023: IMPRESSION: Marked cardiomegaly is again noted. There is central vascular congestion with interstitial prominence compatible with pulmonary edema. There is record in the basilar fluid and atelectasis or consolidation. No pneumothorax. Discharge Plan Discharge Disposition: Xfer Other Date of Admission: 03/24/23 23:40 Attending Provider on Discharge: Jose Brown Primary Care Provider: Ervin Chapin Condition: Stable Anticipated Discharge Date/Time: 03/29/23 11:30 Discharge Medications: New acetaminophen 325 mg Tablet 650 mg PO Q6H PRN30 Days Qty: 100 0RF torsemide 20 mg Tablet 80 mg PO DAILY 30 Days Qty: 120 0RF spironolactone 25 mg Tablet 25 mg PO DAILY 30 Days Qty: 30 1RF trazodone 50 mg tablet 50 mg PO QHS PRNQty: 30 0RF Continued clotrimazole [Antifungal (clotrimazole)] 1 % cream 1 applic topical BID PRN allopurinol 300 mg tablet 300 mg PO DAILY aspirin 81 mg tablet,delayed release (DR/EC) 81 mg PO DAILY atorvastatin 40 mg tablet 40 mg PO DAILY carvedilol 12.5 mg tablet 12.5 mg PO BID folic acid 1 mg tablet 1 mg PO DAILY Patient Comments: TAKE ONE TABLET BY MOUTH EVERY DAY polyethylene glycol 3350 17 gram/dose powder 17 g PO DAILY Patient Comments: GIVE 17GM BY MOUTH ONE TIME A DAY FOR CONSTIPATION MIX WITH 4-8 OUNCES(120- 240CC) OF LIQUID omeprazole 20 mg capsule,delayed release(DR/EC) 20 mg PO DAILY Patient Comments: TAKE ONE CAPSULE BY MOUTH EVERY DAY oxycodone-acetaminophen 5-325 mg tablet 1 tab PO Q4H Patient Comments: TAKE ONE TABLET BY MOUTH 6 TIMES DAILY sennosides [senna] 8.6 mg tablet 8.6 mg PO DAILY PRN (Reason: constipation) Patient Comments: TAKE ONE TABLET BY MOUTH TWICE A DAY sildenafil (pulm.hypertension) 20 mg tablet 20 mg PO TID losartan 50 mg Tablet 50 mg PO DAILY Qty: 30 0RF potassium chloride 10 mEq Capsule, Extended Release 20 meq PO DAILY Qty: 30 0RF benzonatate 100 mg capsule 100 mg PO Q4H PRN guaifenesin 100 mg/5 mL liquid 200 mg PO Q4H PRN (Reason: cough) Discontinued torsemide 20 mg Tablet 80 mg PO BID@0800,1400 Qty: 240 1RF hydrochlorothiazide 12.5 mg tablet 12.5 mg PO DAILY Discharge Orders: Discharge Order (Routine); Ordered 03/29/23 Ordered By: Jose Brown Additional Instructions: 1. Check kidney panel in 2-4 days, with results to primary care physician (PCP); 2. Follow-up with PCP in 5-10 days; 3. Daily weight measurements; 4. Encourage no added salt diet. Activity Level: No Restrictions and Activity as Tolerated Discharge Diet: 2 gm Sodium Follow Up Appointments: Ervin Chapin MD [Primary Care Provider] - Forms: [facility] Info Instructions
== END 2023-03-29 12:37 | disposition other institution (70) | DRG 194 ==
LOC: ED 21:39 → MEDSURG 03-25 13:24
PROVIDERS: Internal Medicine; Admitting Provider Family Medicine; Emergency Provider Student in an Organized Health Care Education/Training Program; PCP Family Medicine; Visit Provider Family Medicine
DX: I13.0 Hypertensive heart and chronic kidney disease with heart failure and stage 1 through stage 4 chronic kidney disease, or unspecified chronic kidney disease (principal); I50.813 Acute on chronic right heart failure; I27.20 Pulmonary hypertension, unspecified; I48.20 Chronic atrial fibrillation, unspecified; E87.6 Hypokalemia; N18.30 Chronic kidney disease, stage 3 unspecified; N17.9 Acute kidney failure, unspecified; I08.3 Combined rheumatic disorders of mitral, aortic and tricuspid valves; G89.29 Other chronic pain; M54.9 Dorsalgia, unspecified; F11.90 Opioid use, unspecified, uncomplicated; E78.5 Hyperlipidemia, unspecified; F10.21 Alcohol dependence, in remission; G47.00 Insomnia, unspecified; E21.3 Hyperparathyroidism, unspecified; K21.9 Gastro-esophageal reflux disease without esophagitis; Z86.718 Personal history of other venous thrombosis and embolism; Z86.73 Personal history of transient ischemic attack (TIA), and cerebral infarction without residual deficits
CPT/HCPCS: 36415; 71046; 80048; 80053; 80069; 82803; 83735; 83880; 84484; 85018; 85025; 87081; 87631; 93005; 93306; 97161; 97165; 99283; 99285; G0378; A9270; J1650; J1940; J3480

== ENCOUNTER 2023-04-07 15:09 | Outpatient (REF) | payer BC, SELFPAY ==
[2023-04-07 17:04] LABS: Basophils Absolute Auto 0.02 K/uL (0.00-0.30); Basophils Percent Auto 0.3 % (0.0-3.0); Eosinophils Absolute Auto 0.24 K/uL (0.00-0.50); Eosinophils Percent Auto 3.6 % (0.0-7.0); Hematocrit 41.1 % (37.0-53.0); Hemoglobin* 13.1 gm/dL (13.5-17.5); Immature Granulocytes Abs Auto 0.01 K/uL (0.00-0.30); Immature Granulocytes Pct Auto 0.2 %; Lymphocytes Percent Auto 10.9 % (20-44); Mean Corpuscular HGB Conc 32 gm/dL (32-36); Mean Corpuscular Hemoglobin 31 pg (26-34); Mean Corpuscular Volume 96 fL (80-100); Monocytes Percent Auto 8.3 % (0.0-11.0); Neutrophils Percent Auto 76.7 % (42.0-72.0); Platelet Count* 138 K/uL (140-440); RDW Coefficient of Variation % 15.6 % (11.5-15.5); Red Blood Count 4.28 m/uL (4.30-5.90)
[2023-04-07 17:25] LABS: Slide Review Reflex No
[2023-04-07 17:37] LABS: Chloride* 86 mmol/L (96-114); Potassium* 5.6 mmol/L (3.6-5.1); Sodium* 126 mmol/L (135-149)
[2023-04-07 17:40] LABS: Anion Gap 17 mEq/L (7-15); Carbon Dioxide* 23 mmol/L (20-32); Creatinine* 1.5 mg/dL (0.5-1.5); Estimated Glomerular Filt Rate 46 ml/min
[2023-04-07 17:41] LABS: Blood Urea Nitrogen* 46 mg/dL (7-30); Calcium* 8.5 mg/dL (8.4-10.6); Glucose* 92 mg/dL (60-115)
== END 2023-04-07 15:10 | disposition home or self-care (01) ==
LOC: NPINS 15:09
PROVIDERS: PCP Family Medicine; Visit Provider Nurse Practitioner Gerontology
DX: I50.9 Heart failure, unspecified (principal)
CPT/HCPCS: 80048; 85025

== ENCOUNTER 2023-04-13 14:25 | Outpatient (REF) | payer BC, SELFPAY ==
[2023-04-13 16:42] LABS: Chloride* 91 mmol/L (96-114)
[2023-04-13 16:44] LABS: Creatinine* 1.4 mg/dL (0.5-1.5); Estimated Glomerular Filt Rate 50 ml/min
[2023-04-13 16:45] LABS: Anion Gap 10 mEq/L (7-15); Blood Urea Nitrogen* 49 mg/dL (7-30); Calcium* 8.6 mg/dL (8.4-10.6); Carbon Dioxide* 23 mmol/L (20-32); Glucose* 84 mg/dL (60-115)
[2023-04-13 16:55] LABS: Sodium* 124 mmol/L (135-149)
[2023-04-13 16:56] LABS: Potassium* 6.1 mmol/L (3.6-5.1)
== END 2023-04-13 14:26 | disposition home or self-care (01) ==
LOC: NPINS 14:25
PROVIDERS: PCP Family Medicine; Visit Provider Nurse Practitioner Gerontology
DX: N18.9 Chronic kidney disease, unspecified (principal)
CPT/HCPCS: 80048

== ENCOUNTER 2023-04-16 09:04 | Outpatient (REF) | payer BC, SELFPAY ==
[2023-04-16 09:37] LABS: Chloride* 83 mmol/L (96-114)
[2023-04-16 09:38] LABS: Potassium* 5.6 mmol/L (3.6-5.1)
[2023-04-16 09:40] LABS: Creatinine* 1.4 mg/dL (0.5-1.5); Estimated Glomerular Filt Rate 50 ml/min
[2023-04-16 09:41] LABS: Blood Urea Nitrogen* 51 mg/dL (7-30); Carbon Dioxide* 22 mmol/L (20-32); Glucose* 98 mg/dL (60-115)
[2023-04-16 09:45] LABS: Anion Gap 15 mEq/L (7-15); Sodium* 120 mmol/L (135-149)
== END 2023-04-16 09:05 | disposition home or self-care (01) ==
LOC: NPINS 09:04
PROVIDERS: PCP Family Medicine; Visit Provider Nurse Practitioner Gerontology
DX: E87.5 Hyperkalemia (principal); E87.1 Hypo-osmolality and hyponatremia; I27.20 Pulmonary hypertension, unspecified; I48.92 Unspecified atrial flutter
CPT/HCPCS: 80048

== ENCOUNTER 2023-04-16 10:36 | Inpatient (IN) | payer BC, SELFPAY ==
[2023-04-16] VITALS (25 sets, daily range): BP systolic 119–169; BP diastolic 48–100; PULSE 40–69; RESP 18–20; TEMP 36.6–36.8; O2SAT 91–97; BMI 26.6; BMI 26.8
[2023-04-16 11:18] LABS: Troponin, Point-of-Care* 0.03 ng/ml (0.01-0.04)
--- NOTE | 2023-04-16 11:24 | ED_ITS ---
HPI - General Adult General Date Seen: 04/16/23 Chief complaint: Unspecified Complaint, Adult Stated complaint: ill Time Seen by Provider: 04/16/23 11:10 Source: patient Mode of arrival: ambulatory Limitations: no limitations History of Present Illness HPI narrative: Patient is an 82-year-old male with history of chronic kidney disease stage 3 severe tricuspid valve regurgitation, CHF, AFib presenting to emergency department for abnormal lab work. He had routine labs done today that showed a potassium of 5.6 and a sodium of 120. He states he otherwise feels fine. Denies chest pain, shortness of breath, headache, lightheadedness, dizziness, fevers, chills, weakness, numbness, abdominal pain. He states he feels completely asymptomatic at this time. Patient's been having his labs checked multiple times over the past week due to issues facility with potassium. Knee was medications changed in the past couple weeks after he was in the hospital for CHF Related Data Home Medications Medication Instructions Recorded Confirmed allopurinol 300 mg tablet 300 mg PO DAILY 05/07/22 03/24/23 aspirin 81 mg tablet,delayed 81 mg PO DAILY 05/07/22 03/24/23 release atorvastatin 40 mg tablet 40 mg PO DAILY 05/07/22 03/24/23 carvedilol 12.5 mg tablet 12.5 mg PO BID 05/07/22 03/24/23 folic acid 1 mg tablet 1 mg PO DAILY 05/07/22 03/24/23 omeprazole 20 mg capsule,delayed 20 mg PO DAILY 05/07/22 03/24/23 release oxycodone-acetaminophen 5 mg-325 1 tab PO Q4H pain 05/07/22 03/24/23 mg tablet polyethylene glycol 3350 17 17 g PO DAILY 05/07/22 03/24/23 gram/dose oral powder sennosides 8.6 mg tablet (senna) 8.6 mg PO DAILY PRN constipation 05/07/22 03/24/23 sildenafil (pulm.hypertension) 20 20 mg PO TID 05/07/22 03/24/23 mg tablet clotrimazole 1 % topical cream 1 applic topical BID PRN 02/13/23 03/25/23 (Antifungal (clotrimazole)) benzonatate 100 mg capsule 100 mg PO Q4H PRN 03/25/23 03/25/23 guaifenesin 100 mg/5 mL oral liquid 200 mg PO Q4H PRN cough 03/25/23 03/25/23 Previous Rx's Medication Instructions Recorded losartan 50 mg tablet 50 mg PO DAILY #30 tabs 05/13/22 potassium chloride 10 mEq 20 meq (2 x 10 mEq) PO DAILY #30 05/13/22 capsule,extended release caps acetaminophen 325 mg tablet 650 mg (2 x 325 mg) PO Q6H PRN 30 03/29/23 days #100 tabs spironolactone 25 mg tablet 25 mg PO DAILY 30 days #30 tabs 03/29/23 torsemide 20 mg tablet 80 mg (4 x 20 mg) PO DAILY 30 days 03/29/23 #120 tabs trazodone 50 mg tablet 50 mg PO QHS PRN #30 tabs 03/29/23 Allergies Allergy/AdvReac Type Severity Reaction Status Date / Time cyclobenzaprine Allergy Unknown Verified 02/13/23 12:27 meloxicam Allergy Unknown Verified 02/13/23 12:27 NSAIDS (Non-Steroidal Allergy Unknown Verified 02/13/23 12:27 Anti-Inflamma Review of Systems Status of ROS: Reports: 10 or more systems reviewed and unremarkable except as noted in History and below [facility] Medical History Severe tricuspid valve regurgitation ?I07.1 - Rheumatic tricuspid insufficiency (ICD-10) Congestive heart failure ?I50.9 - Heart failure, unspecified (ICD-10) Chronic alcoholism in remission ?F10.21 - Alcohol dependence, in remission (ICD-10) Degenerative disc disease Osteoarthritis ?M19.90 - Unspecified osteoarthritis, unspecified site (ICD-10) Chronic back pain ?M54.9 - Dorsalgia, unspecified (ICD-10) ?G89.29 - Other chronic pain (ICD-10) Chronic kidney disease, stage 3 ?N18.30 - Chronic kidney disease, stage 3 unspecified (ICD-10) Chronic, continuous use of opioids ?F11.90 - Opioid use, unspecified, uncomplicated (ICD-10) Chronic pain ?G89.29 - Other chronic pain (ICD-10) Cyst of kidney, acquired ?N28.1 - Cyst of kidney, acquired (ICD-10) History of deep venous thrombosis or pulmonary embolus Gastroesophageal reflux disease ?K21.9 - Gastro-esophageal reflux disease without esophagitis (ICD-10) Gout ?M10.9 - Gout, unspecified (ICD-10) Insomnia ?G47.00 - Insomnia, unspecified (ICD-10) Hyperlipidemia ?E78.5 - Hyperlipidemia, unspecified (ICD-10) Chronic atrial fibrillation ?I48.20 - Chronic atrial fibrillation, unspecified (ICD-10) Essential hypertension ?I10 - Essential (primary) hypertension (ICD-10) History of stroke ?Z86.73 - Personal history of transient ischemic attack (TIA), and cerebral infarction without residual deficits (ICD-10) Hyperparathyroidism ?E21.3 - Hyperparathyroidism, unspecified (ICD-10) Pulmonary arterial hypertension ?I27.21 - Secondary pulmonary arterial hypertension (ICD-10) Chronic right-sided heart failure ?I50.812 - Chronic right heart failure (ICD-10) Social History Narrative: Lives at [facility]. Sister Luis Carlos would be MDM if needed. No smoking, no current ETOH use. DNR/DNI. What is your current living situation?: I presently have a place to live Problems where you live: no known problems Problems where you live details: no known problems In the past 12 months, utilities in danger of being shut off: no In past 12 months, lack of transportation kept you from medical appts, meetings, work, or getting things needed for daily living: no In the past 12 mos, have been you worried that your food would run out before you had money to buy more?: never true In the past 12 mos, the food you bought just didn't last and you didn't have money to buy more?: never true Highest level of school completed/degree received: 10th grade Smoking Status: Never smoker Do you use any of these nicotine containing products: None Nicotine containing products detail: occasional chewing tobacco Second hand tobacco smoke exposure: No How often do you have a drink containing alcohol: never How often do you have six or more drinks on one occasion: Never AUDIT-C Alcohol total score: 0 Non-prescribed substance use: denies use Caffeine: Yes (occasional diet pepsi) How often does anyone, including family, friends and others, physically hurt you : never How often does anyone, including family, friends and others, insult or talk down to you: never How often does anyone, including family, friends and others, threaten you with harm: never How often does anyone, including family, friends and others, scream or curse at you: never service: No Exam Narrative: Exam Narrative: Const: Well-nourished, Well-developed, in no distress Eyes: PERRL, no conjunctival injection, and symmetrical lids HENT: Atraumatic external nose and ears. Moist mucous membranes. Neck: Symmetric, trachea midline, No thyromegaly. CVS: RRR, No murmurs or gallops. Peripheral pulses 2+ and equal in all extremities RESP: Unlabored respiratory effort. Clear to auscultation bilaterally. GI: Nontender/Nondistended, No rebound or guarding. MSK:Extremities w/o deformity, Normal Active ROM Skin: Warm, Dry. No rashes or lesions. Neuro: Normal Muscle tone, No focal neurological deficits. Psych: Awake, Alert, & Oriented x3. Appropriate mood and affect. Const: Vital Signs, click to edit/add: Vital Signs - 24 hr 04/16/23 10:42 04/16/23 11:05 04/16/23 11:06 Temperature 97.9 F Pulse Rate 47 L 47 L Pulse Rate [Apical ] 48 L Respiratory Rate 20 Blood Pressure 164/77 H Blood Pressure [Ri ght Upper Arm] 169/72 H Pulse Oximetry 95 93 95 Oxygen Delivery Me thod Room Air 04/16/23 11:15 04/16/23 11:31 04/16/23 11:33 Temperature Pulse Rate 48 L 43 L 46 L Pulse Rate [Apical ] Respiratory Rate Blood Pressure 166/94 H Blood Pressure [Ri ght Upper Arm] Pulse Oximetry 95 97 97 Oxygen Delivery Me thod 04/16/23 11:45 04/16/23 12:00 04/16/23 12:02 Temperature Pulse Rate 53 L 51 L 52 L Pulse Rate [Apical ] Respiratory Rate Blood Pressure 164/71 H Blood Pressure [Ri ght Upper Arm] Pulse Oximetry 91 93 94 Oxygen Delivery Me thod 04/16/23 12:15 04/16/23 12:30 04/16/23 12:33 Temperature Pulse Rate 46 L 55 L 54 L Pulse Rate [Apical ] Respiratory Rate Blood Pressure 163/80 H Blood Pressure [Ri ght Upper Arm] Pulse Oximetry 95 94 94 Oxygen Delivery Me thod 04/16/23 12:45 04/16/23 13:00 04/16/23 13:02 Temperature Pulse Rate 55 L 53 L 55 L Pulse Rate [Apical ] Respiratory Rate Blood Pressure 152/100 H Blood Pressure [Ri ght Upper Arm] Pulse Oximetry 93 93 93 Oxygen Delivery Me thod Course Vital Signs Vital signs: Initial Vital Signs Temperature 97.9 F 04/16/23 10:42 Temperature Source Temporal Artery Scan 04/16/23 10:42 Pulse Rate 48 L 04/16/23 10:42 Pulse Rhythm Irregular 04/16/23 10:42 Respiratory Rate 20 04/16/23 10:42 Blood Pressure 169/72 H 04/16/23 10:42 Blood Pressure Mean 104 04/16/23 10:42 Blood Pressure Position Supine 04/16/23 10:42 Pulse Oximetry 95 04/16/23 10:42 Oxygen Delivery Method Room Air 04/16/23 10:42 Vital Signs Temperature 97.9 F 04/16/23 10:42 Pulse Rate 48 L 04/16/23 10:42 Respiratory Rate 20 04/16/23 10:42 Blood Pressure 169/72 H 04/16/23 10:42 Pulse Oximetry 95 04/16/23 10:42 Oxygen Delivery Method Room Air 04/16/23 10:42 Temperature 97.9 F 04/16/23 10:42 Pulse Rate 55 L 04/16/23 13:02 Respiratory Rate 20 04/16/23 10:42 Blood Pressure 152/100 H 04/16/23 13:02 Pulse Oximetry 93 04/16/23 13:02 Oxygen Delivery Method Room Air 04/16/23 10:42 Medications Administered Medications: Generic Name Dose Route Start Last Admin Trade Name Freq PRN Reason Stop Dose Admin Sodium Chloride 1,000 mls @ 125 mls/hr 04/16/23 11:55 04/16/23 12:03 0.9 % Sodium Chloride 1000 Ml IV 125 mls/hr .Q8H DELVIS Administration Medical Decision Making MDM Narrative Medical decision making narrative: Patient is a 2-year-old male presenting emergency department for abnormal lab work. He has been having routine lab work done because he has been having issues sodium and potassium. They have stopped the spironolactone over the last few days. Had repeat labs done today and was told to come to emergency department. We repeated his labs. CBC showed no concerning abnormalities. CMP shows a sodium of 119 a potassium of 5.9. Magnesium and phosphorus are pending at this time. BNP is elevated at 3600 but he is not having any shortness of breath lower extremity swelling and not believe this needs to be addressed at this time. Does not appear to be in heart failure. Due to his labs we also ordered a TSH, urinalysis, urine osmolality, creatinine, sodium along with the serum osmolality. Patient is currently asymptomatic and doing well. He be admitted to the hospitalist service and they are agreeable to this plan. EKG showed no concerning abnormalities. Lab Data Labs: Lab Results 04/16/23 04/16/23 04/16/23 Range/Units 11:04 11:17 11:48 WBC 7.82 (4.50-11.00) K/uL RBC 4.33 (4.30-5.90) m/uL Hgb 13.0 L (13.5-17.5) gm/dL Hct 39.6 (37.0-53.0) % MCV 92 (80-100) fL MCH 30 (26-34) pg MCHC 33 (32-36) gm/dL RDW Coeff of Adalberto 15.2 (11.5-15.5) % Plt Count 116 L (140-440) K/uL Neut % (Auto) 80.6 H (42.0-72.0) % Lymph % (Auto) 7.9 L (20-44) % [place] % (Auto) 5.8 (0.0-11.0) % Eos % (Auto) 4.3 (0.0-7.0) % Baso % (Auto) 0.5 (0.0-3.0) % Neut # (Auto) 6.30 (1.7-7.0) K/uL Lymph # (Auto) 0.60 L (0.90-2.90) K/uL [place] # (Auto) 0.50 (0.00-0.90) K/UL Eos # (Auto) 0.34 (0.00-0.50) K/uL Baso # (Auto) 0.04 (0.00-0.30) K/uL Abs Immat Gran (auto) 0.07 (0.00-0.30) K/uL Imm/Tot Granulo (auto) 0.9 % Sodium 119 L* (135-149) mmol/L Potassium 5.9 H (3.6-5.1) mmol/L Chloride 83 L (96-114) mmol/L Carbon Dioxide 25 (20-32) mmol/L Anion Gap 11 (7-15) mEq/L BUN 51 H (7-30) mg/dL Creatinine 1.4 (0.5-1.5) mg/dL Estimated Creat Clear 38.03 Estimated GFR 50 ml/min Glucose 117 H (60-115) mg/dL Calcium 8.9 (8.4-10.6) mg/dL Total Bilirubin 1.5 (0.1-1.5) mg/dL AST 45 H (12-35) U/L ALT 42 (4-50) U/L Alkaline Phosphatase 153 H (40-150) U/L NT-Pro-B Natriuret Pep 3610 pg/mL Total Protein 7.2 (6.0-8.3) g/dL Albumin 4.7 (3.3-5.0) g/dL Urine Color Yellow (Yellow) Urine Appearance Clear (Clear) Urine pH 5.5 (5.0-8.5) Ur Specific [place] 1.010 (1.000-1.030) Urine Protein Negative (Negative) Urine Glucose (UA) Negative (Negative) Urine Ketones Negative (Negative) Urine Blood Negative (Negative) Urine Nitrite Negative (Negative) Urine Bilirubin Negative (Negative) Urine Urobilinogen 0.2 (0.2-1.0) Ur Leukocyte Esterase Negative (Negative) Urine RBC 2-5 A (0-2) Urine WBC 2-5 (0-5) Ur Squamous Epith Cells Few (None-Few) Amorphous Sediment Few A (None) Urine Bacteria Few A (None) Ur Random Creatinine 16 mg/dL Lab Acknowledgement Test Added POC Troponin I 0.03 (0.01-0.04) ng/ml 04/16/23 Range/Units 11:49 WBC (4.50-11.00) K/uL RBC (4.30-5.90) m/uL Hgb (13.5-17.5) gm/dL Hct (37.0-53.0) % MCV (80-100) fL MCH (26-34) pg MCHC (32-36) gm/dL RDW Coeff of Adalberto (11.5-15.5) % Plt Count (140-440) K/uL Neut % (Auto) (42.0-72.0) % Lymph % (Auto) (20-44) % [place] % (Auto) (0.0-11.0) % Eos % (Auto) (0.0-7.0) % Baso % (Auto) (0.0-3.0) % Neut # (Auto) (1.7-7.0) K/uL Lymph # (Auto) (0.90-2.90) K/uL [place] # (Auto) (0.00-0.90) K/UL Eos # (Auto) (0.00-0.50) K/uL Baso # (Auto) (0.00-0.30) K/uL Abs Immat Gran (auto) (0.00-0.30) K/uL Imm/Tot Granulo (auto) % Sodium (135-149) mmol/L Potassium (3.6-5.1) mmol/L Chloride (96-114) mmol/L Carbon Dioxide (20-32) mmol/L Anion Gap (7-15) mEq/L BUN (7-30) mg/dL Creatinine (0.5-1.5) mg/dL Estimated Creat Clear Estimated GFR ml/min Glucose (60-115) mg/dL Calcium (8.4-10.6) mg/dL Total Bilirubin (0.1-1.5) mg/dL AST (12-35) U/L ALT (4-50) U/L Alkaline Phosphatase (40-150) U/L NT-Pro-B Natriuret Pep pg/mL Total Protein (6.0-8.3) g/dL Albumin (3.3-5.0) g/dL Urine Color (Yellow) Urine Appearance (Clear) Urine pH (5.0-8.5) Ur Specific [place] (1.000-1.030) Urine Protein (Negative) Urine Glucose (UA) (Negative) Urine Ketones (Negative) Urine Blood (Negative) Urine Nitrite (Negative) Urine Bilirubin (Negative) Urine Urobilinogen (0.2-1.0) Ur Leukocyte Esterase (Negative) Urine RBC (0-2) Urine WBC (0-5) Ur Squamous Epith Cells (None-Few) Amorphous Sediment (None) Urine Bacteria (None) Ur Random Creatinine mg/dL Lab Acknowledgement Test Added POC Troponin I (0.01-0.04) ng/ml ECG Data Attestation: I personally reviewed and interpreted this ECG as follows: Prior ECG tracings: available for review Interpretation: AFib with a slow ventricular response with a rate of 50 beats per minute,normal axis,. No ST or T-wave abnormalities. Appears similar to previous EKG Discharge Plan Discharge Clinical Impression: Acute hyponatremia, Acute hyperkalemia Patient Disposition: Admitted As Observation Discharge Location: [facility] Condition: Stable
[2023-04-16 11:30] LABS: Basophils Absolute Auto 0.04 K/uL (0.00-0.30); Basophils Percent Auto 0.5 % (0.0-3.0); Eosinophils Absolute Auto 0.34 K/uL (0.00-0.50); Eosinophils Percent Auto 4.3 % (0.0-7.0); Hematocrit 39.6 % (37.0-53.0); Immature Granulocytes Abs Auto 0.07 K/uL (0.00-0.30); Immature Granulocytes Pct Auto 0.9 %; Lymphocytes Percent Auto 7.9 % (20-44); Mean Corpuscular HGB Conc 33 gm/dL (32-36); Mean Corpuscular Hemoglobin 30 pg (26-34); Mean Corpuscular Volume 92 fL (80-100); Monocytes Percent Auto 5.8 % (0.0-11.0); Neutrophils Percent Auto 80.6 % (42.0-72.0); Platelet Count* 116 K/uL (140-440); RDW Coefficient of Variation % 15.2 % (11.5-15.5); Red Blood Count 4.33 m/uL (4.30-5.90); White Blood Count* 7.82 K/uL (4.50-11.00)
[2023-04-16 11:31] LABS: Slide Review Reflex No
[2023-04-16 11:36] LABS: Albumin* 4.7 g/dL (3.3-5.0); Chloride* 83 mmol/L (96-114)
[2023-04-16 11:37] LABS: Potassium* 5.9 mmol/L (3.6-5.1)
[2023-04-16 11:39] LABS: Alkaline Phosphatase* 153 U/L (40-150); Aspartate Amino Transferase* 45 U/L (12-35); Bilirubin Total* 1.5 mg/dL (0.1-1.5); Blood Urea Nitrogen* 51 mg/dL (7-30); Creatinine* 1.4 mg/dL (0.5-1.5); Est. Creatinine Clearance* 38.03; Estimated Glomerular Filt Rate 50 ml/min; Total Protein* 7.2 g/dL (6.0-8.3)
[2023-04-16 11:40] LABS: Alanine Aminotransferase* 42 U/L (4-50); Calcium* 8.9 mg/dL (8.4-10.6); Glucose* 117 mg/dL (60-115)
[2023-04-16 11:48] LABS: Anion Gap 11 mEq/L (7-15); Carbon Dioxide* 25 mmol/L (20-32)
[2023-04-16 11:53] LABS: NT Pro B Type NatriureticPept* 3610 pg/mL; Sodium* 119 mmol/L (135-149)
[2023-04-16 12:01] LABS: Appearance Urine Clear (Clear); Bilirubin Urine Negative (Negative); Blood Urine Negative (Negative); Color Urine Yellow (Yellow); Glucose Urine Negative (Negative); Ketones Urine Negative (Negative); Leukocyte Esterase Urine Negative (Negative); Nitrite Urine Negative (Negative); Protein Urine Negative (Negative); Urobilinogen Urine 0.2 (0.2-1.0); pH Urine 5.5 (5.0-8.5)
[2023-04-16] MEDS: 0.9 % SODIUM CHLORIDE 1000 ml 1,000 ML 125 ML IV (12:03)
[2023-04-16 12:10] LABS: Squamous Epithelial Cell Urine Few (None-Few)
[2023-04-16 12:11] LABS: Amorphous Sediment Urine Few; Bacteria Urine Few
--- NOTE | 2023-04-16 12:59 | CRLHL7_ITS ---
For Patients: As a result of the Cures Act, medical imaging exams and procedure reports are released immediately into your electronic medical record. You may view this report before your referring provider. If you have questions, please contact your health care provider. INDICATION: Cough. TECHNIQUE: Chest 2 views. COMPARISON: March 24, 2023. FINDINGS: Cardiovascular and mediastinum: Stable cardiomegaly with vascular congestion. Lungs and pleural spaces: Interstitial prominence. No sign of infiltrate or mass. No sign of pleural effusion. No pneumothorax. Bones and soft tissues: No significant findings. IMPRESSION: Stable cardiomegaly, vascular congestion, and interstitial prominence possibly mild pulmonary edema. Dictated by Adal Van MD @ 04/16/2023 3:11:18 PM (Electronically Signed)
--- NOTE | 2023-04-16 13:13 | ED.NURSE ---
Report given off to tatiana KNIGHT.
[2023-04-16 13:15] LABS: Creatinine Urine Random 16 mg/dL
--- NOTE | 2023-04-16 15:24 | PC.NURSE ---
End of Shift Patient arrived @ 1335 to the unit for low sodium and high potassium symptoms include weakness and mild shakiness. Moves aX1-2 W/ GB and 4 wheel RW. Patients wheelchair is here in his room all other belongings were accounted for on admission. Chronic low back pain controlled with scheduled oxy. 500 ml bolus of normal saline is running.. Bladder scan and post void bladder scan was completed.. see bladder scan results. Call light within reach and patients sister is in th eroom. NIKKI PHELAN RN
[2023-04-16] MEDS: OxyCODONE/APAP 5-325 TABLET 1 TAB PO ×3 (15:43→23:41)
--- NOTE | 2023-04-16 16:05 | P.IMHP_ITS ---
Hospitalist- H&P: FRITZ History of Present Illness Date Seen: 04/16/23 Chief complaint: Abnormal electrolytes Narrative: Mac Beckham is a 82 year old male admitted to the hospital due to hyponatremia and hyperkalemia. Patient was hospitalized here for heart failure 3 weeks ago. At that time he was started on spironolactone 25 mg daily in addition to torsemide 20 mg daily. His also chronically on losartan 50 mg daily. He was also taking potassium 20 mEq daily. He had outpatient follow-up with blood test monitoring. April 07 he had a sodium of 126 and a potassium of 5.6. April 13 he had a sodium of 124 and a potassium 6.1. On April 16, this morning, he had a sodium 120 and a potassium of 5.6. His potassium was discontinued on April 08 and his spironolactone was discontinued on April 14. Patient reports feeling fine and at baseline for his chronic medical problems. His weight has been fairly stable. He has not had significant edema. He has been eating and drinking normally. He reports no fever, chest pain, unusual dyspnea, abdominal pain, nausea, vomiting, diarrhea. He has a tendency towards constipation. He has not had any other change in his medicines. He specifically denies any instead take of NSAIDs. His medications are provided by the nurse at his assisted living. Review of Systems Narrative: Except as noted above patient reports he has had baseline. He has chronic back problems treated with oxycodone, chronic insomnia, urinary frequency and nocturia which are his bothersome symptoms today. [facility] Medical History (Updated 04/16/23 @ 16:23 by Sudhakar Motta MD) Nocturia ?R35.1 - Nocturia (ICD-10) Pulmonary hypertension ?I27.20 - Pulmonary hypertension, unspecified (ICD-10) Severe tricuspid valve regurgitation ?I07.1 - Rheumatic tricuspid insufficiency (ICD-10) Congestive heart failure ?I50.9 - Heart failure, unspecified (ICD-10) Chronic alcoholism in remission ?F10.21 - Alcohol dependence, in remission (ICD-10) Degenerative disc disease Osteoarthritis ?M19.90 - Unspecified osteoarthritis, unspecified site (ICD-10) Chronic back pain ?M54.9 - Dorsalgia, unspecified (ICD-10) ?G89.29 - Other chronic pain (ICD-10) Chronic kidney disease, stage 3 ?N18.30 - Chronic kidney disease, stage 3 unspecified (ICD-10) Chronic, continuous use of opioids ?F11.90 - Opioid use, unspecified, uncomplicated (ICD-10) Chronic pain ?G89.29 - Other chronic pain (ICD-10) Cyst of kidney, acquired ?N28.1 - Cyst of kidney, acquired (ICD-10) History of deep venous thrombosis or pulmonary embolus Gastroesophageal reflux disease ?K21.9 - Gastro-esophageal reflux disease without esophagitis (ICD-10) Gout ?M10.9 - Gout, unspecified (ICD-10) Insomnia ?G47.00 - Insomnia, unspecified (ICD-10) Hyperlipidemia ?E78.5 - Hyperlipidemia, unspecified (ICD-10) Chronic atrial fibrillation ?I48.20 - Chronic atrial fibrillation, unspecified (ICD-10) Essential hypertension ?I10 - Essential (primary) hypertension (ICD-10) History of stroke ?Z86.73 - Personal history of transient ischemic attack (TIA), and cerebral infarction without residual deficits (ICD-10) Hyperparathyroidism ?E21.3 - Hyperparathyroidism, unspecified (ICD-10) Pulmonary arterial hypertension ?I27.21 - Secondary pulmonary arterial hypertension (ICD-10) Chronic right-sided heart failure ?I50.812 - Chronic right heart failure (ICD-10) Social History (Updated 04/16/23 @ 16:15 by Sudhakar Motta MD) Narrative: Lives at [facility]. Sister Luis Carlos would be MDM if needed. No smoking, no current ETOH use. He is relatively sedentary with his activity. He walks with a 4 wheeled walker around his apartment and uses an electric scooter when he leaves his room. DNR/DNI. What is your current living situation?: I presently have a place to live Problems where you live: no known problems Problems where you live details: None In the past 12 months, utilities in danger of being shut off: no In past 12 months, lack of transportation kept you from medical appts, meetings, work, or getting things needed for daily living: no In the past 12 mos, have been you worried that your food would run out before you had money to buy more?: never true In the past 12 mos, the food you bought just didn't last and you didn't have money to buy more?: never true Highest level of school completed/degree received: 10th grade Smoking Status: Never smoker Do you use any of these nicotine containing products: None Nicotine containing products detail: occasional chewing tobacco Second hand tobacco smoke exposure: No How often do you have a drink containing alcohol: never How often do you have six or more drinks on one occasion: Never AUDIT-C Alcohol total score: 0 Non-prescribed substance use: denies use Caffeine: Yes (occasional diet pepsi) How often does anyone, including family, friends and others, physically hurt you : never How often does anyone, including family, friends and others, insult or talk down to you: never How often does anyone, including family, friends and others, threaten you with harm: never How often does anyone, including family, friends and others, scream or curse at you: never service: No Meds Home Medications and Allergies Home Medications Medication Instructions Recorded Confirmed Type allopurinol 300 mg tablet 300 mg PO DAILY 05/07/22 04/16/23 History aspirin 81 mg tablet,delayed 81 mg PO DAILY 05/07/22 04/16/23 History release atorvastatin 40 mg tablet 40 mg PO HS 05/07/22 04/16/23 History carvedilol 12.5 mg tablet 12.5 mg PO BID 05/07/22 04/16/23 History omeprazole 20 mg capsule,delayed 20 mg PO DAILY 05/07/22 04/16/23 History release oxycodone-acetaminophen 5 mg-325 1 tab PO Q4H pain 05/07/22 04/16/23 History mg tablet polyethylene glycol 3350 17 17 g PO DAILY 05/07/22 04/16/23 History gram/dose oral powder sennosides 8.6 mg tablet (senna) 8.6 mg PO BID constipation 05/07/22 04/16/23 History sildenafil (pulm.hypertension) 20 20 mg PO TID 05/07/22 04/16/23 History mg tablet clotrimazole 1 % topical cream 1 applic topical BID PRN 02/13/23 04/16/23 History (Antifungal (clotrimazole)) benzonatate 100 mg capsule 100 mg PO Q4H PRN 03/25/23 04/16/23 History guaifenesin 100 mg/5 mL oral liquid 200 mg PO Q4H PRN cough 03/25/23 04/16/23 History Allergies Allergy/AdvReac Type Severity Reaction Status Date / Time cyclobenzaprine Allergy Unknown Verified 02/13/23 12:27 meloxicam Allergy Unknown Verified 02/13/23 12:27 NSAIDS (Non-Steroidal Allergy Unknown Verified 02/13/23 12:27 Anti-Inflamma Exam Narrative: Exam Narrative: He is alert and appears in no distress. He gives his history corroborated by his sister. Head is without trauma. Eyes normal. Oropharynx normal. Neck is supple without mass or adenopathy. No jugular venous distension. Respirations are clear to auscultation except for rare basilar crackle. No wheezing. Cardiovascular: S1, S2, regular rate and rhythm. He has a 2 to 3/6 holosystoli c murmur heard across the precordium. Abdomen is soft without tenderness or mass. Extremities without edema. Compression hose in place. He has marked decrease of his pedal pulses. Feet are cool to touch. No open lesions. Sluggish capillary refill bilaterally. He moves all 4 extremities fairly well though he has fairly generalized and symmetric weakness in both legs. Const: Vital Signs, click to edit/add: Vital Signs - 24 hr 04/16/23 10:42 04/16/23 11:05 04/16/23 11:06 Temperature 97.9 F Pulse Rate 47 L 47 L Pulse Rate [Apical ] 48 L Pulse Rate [Right Pulse Oximeter] Respiratory Rate 20 Blood Pressure 164/77 H Blood Pressure [Ri ght Arm] Blood Pressure [Ri ght Upper Arm] 169/72 H Pulse Oximetry 95 93 95 Oxygen Delivery Me thod Room Air 04/16/23 11:15 04/16/23 11:31 04/16/23 11:33 Temperature Pulse Rate 48 L 43 L 46 L Pulse Rate [Apical ] Pulse Rate [Right Pulse Oximeter] Respiratory Rate Blood Pressure 166/94 H Blood Pressure [Ri ght Arm] Blood Pressure [Ri ght Upper Arm] Pulse Oximetry 95 97 97 Oxygen Delivery Me thod 04/16/23 11:45 04/16/23 12:00 04/16/23 12:02 Temperature Pulse Rate 53 L 51 L 52 L Pulse Rate [Apical ] Pulse Rate [Right Pulse Oximeter] Respiratory Rate Blood Pressure 164/71 H Blood Pressure [Ri ght Arm] Blood Pressure [Ri ght Upper Arm] Pulse Oximetry 91 93 94 Oxygen Delivery Me thod 04/16/23 12:15 04/16/23 12:30 04/16/23 12:30 Temperature Pulse Rate 46 L 55 L Pulse Rate [Apical ] Pulse Rate [Right Pulse Oximeter] Respiratory Rate 18 Blood Pressure Blood Pressure [Ri ght Arm] Blood Pressure [Ri ght Upper Arm] Pulse Oximetry 95 94 Oxygen Delivery Me thod 04/16/23 12:33 04/16/23 12:45 04/16/23 13:00 Temperature Pulse Rate 54 L 55 L 53 L Pulse Rate [Apical ] Pulse Rate [Right Pulse Oximeter] Respiratory Rate Blood Pressure 163/80 H Blood Pressure [Ri ght Arm] Blood Pressure [Ri ght Upper Arm] Pulse Oximetry 94 93 93 Oxygen Delivery Me thod 04/16/23 13:02 04/16/23 13:03 04/16/23 13:15 Temperature Pulse Rate 55 L 53 L 50 L Pulse Rate [Apical ] Pulse Rate [Right Pulse Oximeter] Respiratory Rate Blood Pressure 152/100 H Blood Pressure [Ri ght Arm] Blood Pressure [Ri ght Upper Arm] Pulse Oximetry 93 94 93 Oxygen Delivery Me thod 04/16/23 13:45 04/16/23 13:45 04/16/23 15:00 Temperature 98.3 F Pulse Rate Pulse Rate [Apical ] Pulse Rate [Right Pulse Oximeter] 54 L 55 L Respiratory Rate 18 18 18 Blood Pressure Blood Pressure [Ri ght Arm] 158/70 H Blood Pressure [Ri ght Upper Arm] Pulse Oximetry 94 94 Oxygen Delivery Me thod Room Air Room Air 04/16/23 15:30 Temperature Pulse Rate Pulse Rate [Apical ] Pulse Rate [Right Pulse Oximeter] 55 L Respiratory Rate 18 Blood Pressure Blood Pressure [Ri ght Arm] 157/73 H Blood Pressure [Ri ght Upper Arm] Pulse Oximetry 96 Oxygen Delivery Me thod Room Air Documenting provider has reviewed patient's vital signs: yes Hospitalist - H&P: Result Labs Labs: Short CBC 04/16/23 Range/Units 11:04 WBC 7.82 (4.50-11.00) K/uL Hgb 13.0 L (13.5-17.5) gm/dL Hct 39.6 (37.0-53.0) % Plt Count 116 L (140-440) K/uL [facility] 04/16/23 11:04 Sodium 119 L* Potassium 5.9 H Chloride 83 L Carbon Dioxide 25 BUN 51 H Creatinine 1.4 Glucose 117 H Calcium 8.9 Liver Function 04/16/23 Range/Units 11:04 Total Bilirubin 1.5 (0.1-1.5) mg/dL AST 45 H (12-35) U/L ALT 42 (4-50) U/L Alkaline Phosphatase 153 H (40-150) U/L Albumin 4.7 (3.3-5.0) g/dL Urine 04/16/23 Range/Units 11:48 Urine Color Yellow (Yellow) Urine Appearance Clear (Clear) Urine pH 5.5 (5.0-8.5) Ur Specific [place] 1.010 (1.000-1.030) Urine Protein Negative (Negative) Urine Glucose (UA) Negative (Negative) Assessment and Plan Assessment and plan (1) Acute hyperkalemia: Problem comment: Likely due to combination of spironolactone and losartan. Will stop jose enrique nolactone permanently and hold losartan for now Status: Acute (2) Acute hyponatremia: Problem comment: Likely due to combination of spironolactone and losartan. Will stop spironolactone permanently and hold losartan for now. Trend and correct sodium gradually. Status: Acute (3) Severe tricuspid valve regurgitation: Problem comment: Monitor heart failure closely with fluid resuscitation. May need to consider possible valve replacement therapy with cardiology consultation in outpatient setting Status: Acute (4) Chronic kidney disease, stage 3: Problem comment: - baseline continue to follow. Status: Acute Assessment and Plan: Monitor closely. (5) Chronic, continuous use of opioids: Problem comment: - takes scheduled Percocet 6 times a day Status: Acute (6) Chronic atrial fibrillation: Problem comment: - rate controlled, continue Coreg not on anticoagulation - on ASA as an outpatient Status: Acute (7) Pulmonary hypertension: Problem comment: Cause of pulmonary hypertension is uncertain. He has preserved left ventricular function without marked aortic or mitral valvular disease. Severe tricuspid regurg. No history of PE. No history of parenchymal lung disease, COPD, asthma, interstitial lung disease. Status: Acute (8) Nocturia: Problem comment: Awakens every hour at night. No previous diagnosis of prostate disease. No previous prostate surgery. Will give trial of tamsulosin. This may help his insomnia and poor sleep at night as well. Status: Acute (9) Insomnia: Problem comment: Patient has insomnia making it hard to fall asleep and then awakens about every hour to urinate and then has trouble falling asleep again. Will address the urinary frequency it is much as possible. Benzodiazepines are relatively contraindicated with oxycodone. Status: Acute Plan 82-year-old male admitted to the hospital with severe hyponatremia and hyperkalemia. These are likely the result of treatment with spironolactone in combination with losartan. Medicines will be discontinued. He will get some additional fluid now and then close monitoring of his sodium and potassium over the next couple days as these are expected to correct simply by removing the offending medications. Need to monitor his heart failure very closely with this as well. Total time spent today is 80 minutes, 50 minutes in coordination of care and discussing with patient and sister and other providers management of electrolyte abnormalities, heart failure, insomnia, chronic pain Mirna, nocturia
[2023-04-16 18:11] LABS: Calcium* 8.9 mg/dL (8.4-10.6); Creatinine* 1.3 mg/dL (0.5-1.5); Est. Creatinine Clearance* 39.53; Estimated Glomerular Filt Rate 55 ml/min; Glucose* 138 mg/dL (60-115)
[2023-04-16 19:21] LABS: Chloride* 86 mmol/L (96-114); Potassium* 4.9 mmol/L (3.6-5.1)
[2023-04-16 19:24] LABS: Anion Gap 11 mEq/L (7-15); Blood Urea Nitrogen* 51 mg/dL (7-30); Carbon Dioxide* 24 mmol/L (20-32)
[2023-04-16 19:27] LABS: Sodium* 121 mmol/L (135-149)
[2023-04-16 20:10] LABS: Magnesium* 2.6 mg/dL (1.5-2.6); Phosphorus* 4.6 mg/dL (2.5-4.5)
[2023-04-16] MEDS: SILDENAFIL CITRATE 20 MG TABLET PO (20:27)
[2023-04-16] MEDS: ATORVASTATIN CALCIUM 40 MG TABLET PO (20:27)
[2023-04-16] MEDS: SENNOSIDES 1 TAB TABLET PO (20:27)
[2023-04-16] MEDS: TAMSULOSIN HCL 0.4 MG CAPSULE PO (20:28)
[2023-04-16] MEDS: carvediloL 6.25 MG TABLET 12.5 MG PO (20:28)
[2023-04-16] MEDS: MELATONIN 3 MG TABLET PO (20:28)
[2023-04-16] MEDS: SODIUM CHLORIDE 0.9 % (FLUSH) 10 ML SYRINGE 5 ML IVF (20:29)
[2023-04-16] MEDS: ENOXAPARIN 40 MG/0.4 ML INJ SUBCUT (20:29)
--- NOTE | 2023-04-16 22:47 | PC.NURSE ---
15-23: pleasant and cooperative. Pt asked for ?pain pill? x 2 this shift, reminded pt that the [place] is scheduled Q4h, pt stated pain has been tolerable. Uses urinal at bedside. Tele ? Afib w/ bradycardia (HR 40s-50s at rest).
[2023-04-16] MEDS: TRAZODONE HCL 50 MG TABLET PO (23:41)
[2023-04-17] VITALS (8 sets, daily range): BP systolic 114–161; BP diastolic 54–74; PULSE 34–54; RESP 16–18; TEMP 36.5–36.7; O2SAT 94–96
[2023-04-17] MEDS: OxyCODONE/APAP 5-325 TABLET 1 TAB PO ×6 (03:33→23:30)
--- NOTE | 2023-04-17 05:09 | PC.NURSE ---
Pt rested well this night. Tele Afib with Ventricular Bradycardia. Pain controlled with scheduled Elizabeth. Pleasant and cooperative.
[2023-04-17] MEDS: OMEPRAZOLE 20 MG CAPSULE DR PO (06:08)
[2023-04-17 07:25] LABS: Chloride* 88 mmol/L (96-114); Potassium* 4.6 mmol/L (3.6-5.1)
[2023-04-17 07:28] LABS: Anion Gap 11 mEq/L (7-15); Carbon Dioxide* 24 mmol/L (20-32); Creatinine* 1.3 mg/dL (0.5-1.5); Est. Creatinine Clearance* 39.53; Estimated Glomerular Filt Rate 55 ml/min
[2023-04-17 07:29] LABS: Blood Urea Nitrogen* 53 mg/dL (7-30); Calcium* 8.5 mg/dL (8.4-10.6); Glucose* 95 mg/dL (60-115)
[2023-04-17 07:38] LABS: Sodium* 123 mmol/L (135-149)
[2023-04-17] MEDS: TORSEMIDE 20 MG TABLET 80 MG PO (08:17)
[2023-04-17] MEDS: polyethylene glycoL 3350 17 GM PACK PO (09:09)
[2023-04-17] MEDS: SENNOSIDES 1 TAB TABLET PO ×2 (09:10→20:42)
[2023-04-17] MEDS: allopurinoL 300 MG TABLET PO (09:10)
[2023-04-17] MEDS: ASPIRIN 81 MG TABLET EC PO (09:10)
[2023-04-17] MEDS: SODIUM CHLORIDE 0.9 % (FLUSH) 10 ML SYRINGE 5 ML IVF ×2 (09:11→20:43)
[2023-04-17] MEDS: SILDENAFIL CITRATE 20 MG TABLET PO ×3 (09:12→20:43)
--- NOTE | 2023-04-17 09:13 | PC.NURSE ---
AM Dose of Coreg held per MD Thomas as pt noted to be bradycardic at 47.
--- NOTE | 2023-04-17 10:07 | P.IMPN_ITS ---
Progress Note: A&P Assessment and plan (1) Acute hyperkalemia: Problem details: - Likely due to combination of spironolactone and losartan. Holding spironolactone permanently and losartan temporarily. Status: Resolved (2) Acute hyponatremia: Problem details: - 04/16/23 Likely due to combination of spironolactone and losartan. - 04/17 Holding spironolactone permanently and losartan temporarily. Sodium increasing, within goal for slow correction to prevent central pontine myelinolysis. Continue to monitor. Status: Acute (3) Pulmonary hypertension: Problem details: - Cause of pulmonary hypertension is uncertain. He has preserved left ventricular function without marked aortic or mitral valvular disease. Severe tricuspid regurg. No history of PE. No history of parenchymal lung disease, COPD, asthma, interstitial lung disease. - Sildenafil 20 mg 3 times daily, will continue this in addition to measures above - continue with diuresis Status: Chronic (4) Chronic atrial fibrillation: Problem details: - bradycardic, hold Coreg this morning and decrease dose - not on anticoagulation, on ASA as an outpatient Status: Chronic (5) Chronic kidney disease, stage 3: Problem details: - Stable. Continue to monitor while diuresing. Status: Chronic (6) Severe tricuspid valve regurgitation: Problem details: - Monitor heart failure closely with fluid resuscitation. May need to consider possible valve replacement therapy with cardiology consultation in outpatient setting. - TTE 03/26/23 with results below: Final Impressions: 1. Normal left ventricular size, moderately increased wall thickness, normal global systolic function, calculated EF of 63 %. 2. Right ventricular cavity size is severely enlarged, global systolic RV function is moderately reduced. 3. Severely enlarged left atrium. 4. The aortic valve is sclerotic, no stenosis and mild to moderate regurgitation. 5. The mitral valve is sclerotic, mild mitral regurgitation. 6. 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 7. Severe tricuspid regurgitation. 8. PISA EROA 0.79cm2 and regurgitation volume 113cc. 9. 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 10. Severely increased estimated pulmonary pressures by tricuspid regurgitation velocity and right atrial pressure (66 mmHg plus RAP). 11. 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 12. Moderate pericardial effusion. Status: Chronic (7) Chronic, continuous use of opioids: Problem details: - takes scheduled Percocet 6 times a day for chronic back pain Status: Chronic Subjective Time Seen by Provider: 08:38 Date Seen: 04/17/23 Interval history: Deven was hoping to go home today. He says he feels a bit better. We discussed hyponatremia and slow correction of sodium to prevent complications. Nursing staff reports that his telemetry shows he has been in persistent AFib with HRs overnight in the 30s with occasional 40s. He denies any weakness or dizziness. He denies chest pain or shortness of breath. Exam Narrative: Exam Narrative: General: No acute distress. Awake, alert, oriented x3. No pallor. No jaundice. Oropharynx: Clear. Mucous membranes moist. Cardiovascular: Bradycardic. Grade 3/6 holosystolic murmur across the precordium. Respiratory: Fine bibasilar crackles, no wheezes. Abdomen: Bowel sounds present. Soft, nondistended, nontender. Extremities: No pedal edema. Const: Vital Signs, click to edit/add: Vital Signs - 24 hr 04/16/23 10:42 04/16/23 11:05 04/16/23 11:06 Temperature 97.9 F Pulse Rate 47 L 47 L Pulse Rate [Apical ] 48 L Pulse Rate [Right Pulse Oximeter] Respiratory Rate 20 Blood Pressure 164/77 H Blood Pressure [Ri ght Arm] Blood Pressure [Ri ght Upper Arm] 169/72 H Pulse Oximetry 95 93 95 Oxygen Delivery Me thod Room Air 04/16/23 11:15 04/16/23 11:31 04/16/23 11:33 Temperature Pulse Rate 48 L 43 L 46 L Pulse Rate [Apical ] Pulse Rate [Right Pulse Oximeter] Respiratory Rate Blood Pressure 166/94 H Blood Pressure [Ri ght Arm] Blood Pressure [Ri ght Upper Arm] Pulse Oximetry 95 97 97 Oxygen Delivery Me thod 04/16/23 11:45 04/16/23 12:00 04/16/23 12:02 Temperature Pulse Rate 53 L 51 L 52 L Pulse Rate [Apical ] Pulse Rate [Right Pulse Oximeter] Respiratory Rate Blood Pressure 164/71 H Blood Pressure [Ri ght Arm] Blood Pressure [Ri ght Upper Arm] Pulse Oximetry 91 93 94 Oxygen Delivery Me thod 04/16/23 12:15 04/16/23 12:30 04/16/23 12:30 Temperature Pulse Rate 46 L 55 L Pulse Rate [Apical ] Pulse Rate [Right Pulse Oximeter] Respiratory Rate 18 Blood Pressure Blood Pressure [Ri ght Arm] Blood Pressure [Ri ght Upper Arm] Pulse Oximetry 95 94 Oxygen Delivery Me thod 04/16/23 12:33 04/16/23 12:45 04/16/23 13:00 Temperature Pulse Rate 54 L 55 L 53 L Pulse Rate [Apical ] Pulse Rate [Right Pulse Oximeter] Respiratory Rate Blood Pressure 163/80 H Blood Pressure [Ri ght Arm] Blood Pressure [Ri ght Upper Arm] Pulse Oximetry 94 93 93 Oxygen Delivery Me thod 04/16/23 13:02 04/16/23 13:03 04/16/23 13:15 Temperature Pulse Rate 55 L 53 L 50 L Pulse Rate [Apical ] Pulse Rate [Right Pulse Oximeter] Respiratory Rate Blood Pressure 152/100 H Blood Pressure [Ri ght Arm] Blood Pressure [Ri ght Upper Arm] Pulse Oximetry 93 94 93 Oxygen Delivery Me thod 04/16/23 13:45 04/16/23 13:45 04/16/23 15:00 Temperature 98.3 F Pulse Rate Pulse Rate [Apical ] Pulse Rate [Right Pulse Oximeter] 54 L 55 L Respiratory Rate 18 18 18 Blood Pressure Blood Pressure [Ri ght Arm] 158/70 H Blood Pressure [Ri ght Upper Arm] Pulse Oximetry 94 94 Oxygen Delivery Me thod Room Air Room Air 04/16/23 15:30 04/16/23 15:49 04/16/23 19:00 Temperature 98.1 F Pulse Rate 69 Pulse Rate [Apical ] Pulse Rate [Right Pulse Oximeter] 55 L 54 L Respiratory Rate 18 18 Blood Pressure Blood Pressure [Ri ght Arm] 157/73 H 134/75 Blood Pressure [Ri ght Upper Arm] Pulse Oximetry 96 94 Oxygen Delivery Me thod Room Air Room Air 04/16/23 23:30 04/16/23 23:38 04/16/23 23:46 Temperature 98.1 F Pulse Rate 40 L Pulse Rate [Apical ] Pulse Rate [Right Pulse Oximeter] 40 L 40 L Respiratory Rate 18 18 Blood Pressure Blood Pressure [Ri ght Arm] 119/48 L Blood Pressure [Ri ght Upper Arm] Pulse Oximetry 96 Oxygen Delivery Me thod Room Air 04/17/23 03:32 04/17/23 07:00 04/17/23 07:00 Temperature 98.1 F Pulse Rate 43 L Pulse Rate [Apical ] Pulse Rate [Right Pulse Oximeter] 54 L 43 L Respiratory Rate 18 18 Blood Pressure Blood Pressure [Ri ght Arm] 114/58 L Blood Pressure [Ri ght Upper Arm] Pulse Oximetry 95 Oxygen Delivery Me thod Room Air 04/17/23 07:45 Temperature 98.1 F Pulse Rate Pulse Rate [Apical ] Pulse Rate [Right Pulse Oximeter] 43 L Respiratory Rate 18 Blood Pressure Blood Pressure [Ri ght Arm] 156/58 H Blood Pressure [Ri ght Upper Arm] Pulse Oximetry 94 Oxygen Delivery Me thod Room Air Labs Labs: Laboratory Results - last 24 hr 04/16/23 04/16/23 04/16/23 11:04 11:17 11:48 WBC 7.82 RBC 4.33 Hgb 13.0 L Hct 39.6 MCV 92 MCH 30 MCHC 33 RDW Coeff of Adalberto 15.2 Plt Count 116 L Neut % (Auto) 80.6 H Lymph % (Auto) 7.9 L [place] % (Auto) 5.8 Eos % (Auto) 4.3 Baso % (Auto) 0.5 Neut # (Auto) 6.30 Lymph # (Auto) 0.60 L [place] # (Auto) 0.50 Eos # (Auto) 0.34 Baso # (Auto) 0.04 Abs Immat Gran (auto) 0.07 Imm/Tot Granulo (auto) 0.9 Sodium 119 L* Potassium 5.9 H Chloride 83 L Carbon Dioxide 25 Anion Gap 11 BUN 51 H Creatinine 1.4 Estimated Creat Clear 38.03 Estimated GFR 50 Glucose 117 H Calcium 8.9 Phosphorus 4.6 H Magnesium 2.6 Total Bilirubin 1.5 AST 45 H ALT 42 Alkaline Phosphatase 153 H NT-Pro-B Natriuret Pep 3610 Total Protein 7.2 Albumin 4.7 TSH 2.840 Urine Color Yellow Urine Appearance Clear Urine pH 5.5 Ur Specific [place] 1.010 Urine Protein Negative Urine Glucose (UA) Negative Urine Ketones Negative Urine Blood Negative Urine Nitrite Negative Urine Bilirubin Negative Urine Urobilinogen 0.2 Ur Leukocyte Esterase Negative Urine RBC 2-5 A Urine WBC 2-5 Ur Squamous Epith Cells Few Amorphous Sediment Few A Urine Bacteria Few A Ur Random Creatinine 16 Lab Acknowledgement Test Added POC Troponin I 0.03 04/16/23 04/16/23 04/17/23 11:49 17:35 05:28 WBC RBC Hgb Hct MCV MCH MCHC RDW Coeff of Adalberto Plt Count Neut % (Auto) Lymph % (Auto) [place] % (Auto) Eos % (Auto) Baso % (Auto) Neut # (Auto) Lymph # (Auto) [place] # (Auto) Eos # (Auto) Baso # (Auto) Abs Immat Gran (auto) Imm/Tot Granulo (auto) Sodium 121 L* 123 L* Potassium 4.9 4.6 Chloride 86 L 88 L Carbon Dioxide 24 24 Anion Gap 11 11 BUN 51 H 53 H Creatinine 1.3 1.3 Estimated Creat Clear 39.53 39.53 Estimated GFR 55 55 Glucose 138 H 95 Calcium 8.9 8.5 Phosphorus Magnesium Total Bilirubin AST ALT Alkaline Phosphatase NT-Pro-B Natriuret Pep Total Protein Albumin TSH Urine Color Urine Appearance Urine pH Ur Specific [place] Urine Protein Urine Glucose (UA) Urine Ketones Urine Blood Urine Nitrite Urine Bilirubin Urine Urobilinogen Ur Leukocyte Esterase Urine RBC Urine WBC Ur Squamous Epith Cells Amorphous Sediment Urine Bacteria Ur Random Creatinine Lab Acknowledgement Test Added POC Troponin I
--- NOTE | 2023-04-17 18:44 | PC.NURSE ---
[id number] shift note: Pt has had no c/o pain throughout the shift today though does take Percocet scheduled Q4H for pain control due to chronic back pain. Pt continues to be bradycardic with pulses of 43-47 this shift- MD Thomas aware. MD Thomas gave order to hold AM dose of Coreg due to bradycardia noted. Lung sounds noted to be diminished and bowel sounds are active x 4 with last BM of 04/16/23. Pt has been continent of bladder as he continues to use urinal at bedside. He is transferring with assist of 1 using GB and 4WW. Pt SL and IV is patent. No c/o shortness of breath, N/V or CP noted this shift. Chair and bed alarms have been utilized though pt has been using call light appropriately.
[2023-04-17] MEDS: ATORVASTATIN CALCIUM 40 MG TABLET PO (20:42)
[2023-04-17] MEDS: TAMSULOSIN HCL 0.4 MG CAPSULE PO (20:42)
[2023-04-17] MEDS: ENOXAPARIN 40 MG/0.4 ML INJ SUBCUT (20:42)
[2023-04-17] MEDS: MELATONIN 3 MG TABLET PO (20:42)
[2023-04-17 21:46] LABS: Urine Osmolality 223 mOsm/kg (50-800)
[2023-04-17] MEDS: TRAZODONE HCL 50 MG TABLET PO (23:30)
[2023-04-18] VITALS (8 sets, daily range): BP systolic 114–159; BP diastolic 55–77; PULSE 41–54; RESP 16–18; TEMP 36.4–37.1; O2SAT 93–96
[2023-04-18] MEDS: OxyCODONE/APAP 5-325 TABLET 1 TAB PO ×5 (04:10→19:57)
--- NOTE | 2023-04-18 06:18 | PC.NURSE ---
Pt alert and oriented x3. Afebrile. Pt reports 10/10 pain in lower back, pt states calmly while lying in bed it is always a ten, I have had it for years, pain managed with scheduled medications. Pt up SBA with walker gait belt, voiding, and tolerating a regular diet. Pt slept throughout most of night, night uneventful.
[2023-04-18] MEDS: OMEPRAZOLE 20 MG CAPSULE DR PO (06:56)
[2023-04-18 07:14] LABS: Chloride* 90 mmol/L (96-114); Sodium* 125 mmol/L (135-149)
[2023-04-18 07:17] LABS: Anion Gap 9 mEq/L (7-15); Blood Urea Nitrogen* 57 mg/dL (7-30); Calcium* 8.9 mg/dL (8.4-10.6); Carbon Dioxide* 26 mmol/L (20-32); Creatinine* 1.2 mg/dL (0.5-1.5); Est. Creatinine Clearance* 42.83; Estimated Glomerular Filt Rate 60 ml/min; Glucose* 102 mg/dL (60-115)
[2023-04-18 07:18] LABS: Potassium* 4.5 mmol/L (3.6-5.1)
[2023-04-18] MEDS: TORSEMIDE 20 MG TABLET 80 MG PO (08:17)
[2023-04-18] MEDS: ASPIRIN 81 MG TABLET EC PO (08:48)
[2023-04-18] MEDS: allopurinoL 300 MG TABLET PO (08:48)
[2023-04-18] MEDS: SENNOSIDES 1 TAB TABLET PO ×2 (08:49→21:34)
[2023-04-18] MEDS: polyethylene glycoL 3350 17 GM PACK PO (08:49)
[2023-04-18] MEDS: SILDENAFIL CITRATE 20 MG TABLET PO ×3 (08:49→21:34)
[2023-04-18] MEDS: SODIUM CHLORIDE 0.9 % (FLUSH) 10 ML SYRINGE 5 ML IVF ×2 (08:50→21:35)
--- NOTE | 2023-04-18 16:24 | P.IMPN_ITS ---
Progress Note: A&P Assessment and plan (1) Acute hyperkalemia: Problem details: - Likely due to combination of spironolactone and losartan. Holding spironolactone permanently and losartan temporarily. - resolved Status: Resolved (2) Acute hyponatremia: Problem details: - 04/16/23 Likely due to combination of spironolactone and losartan. - 04/17 Holding spironolactone permanently and losartan temporarily. Sodium increasing, within goal for slow correction to prevent central pontine myelinolysis. Continue to monitor. - 04/18 slow improvement over the last 24 hours. Torsemide may be contributing to this however I do not think we can decrease this due to heart failure. I will stop trazodone as this may be contributing to hyponatremia and start him on a fluid restriction. He has been doing a fluid restriction by himself as an outpatient, but for some reason this did not appear to have continued when he was admitted. Status: Acute (3) Pulmonary hypertension: Problem details: - Cause of pulmonary hypertension is uncertain. He has preserved left ventricular function without marked aortic or mitral valvular disease. Severe tricuspid regurg. No history of PE. No history of parenchymal lung disease, COPD, asthma, interstitial lung disease. - Sildenafil 20 mg 3 times daily, will continue this in addition to measures above - continue torsemide 80 mg daily Status: Chronic (4) Chronic atrial fibrillation: Problem details: - bradycardic, I spoke with Dr. Tomas from [facility] who recommended just stopping Coreg at this time since patient is asymptomatic. He also recommended as you patch for 2 weeks as an outpatient and then follow up with outpatient Cardiology after that. - not on anticoagulation due to history of severe GI bleed about 14 years ago, he has been on ASA as an outpatient. I have recommended that the patient discuss anticoagulation with the envelope press operator when he sees them in a few weeks. Status: Chronic (5) Chronic kidney disease, stage 3: Problem details: - Stable. Continue to monitor while diuresing. Status: Chronic (6) Severe tricuspid valve regurgitation: Problem details: - Monitor heart failure closely with fluid resuscitation. May need to consider possible valve replacement therapy with cardiology consultation in outpatient setting, although patient may not be appropriate for surgery given multiple medical issues. - TTE 03/26/23 with results below: Final Impressions: 1. Normal left ventricular size, moderately increased wall thickness, normal global systolic function, calculated EF of 63 %. 2. Right ventricular cavity size is severely enlarged, global systolic RV function is moderately reduced. 3. Severely enlarged left atrium. 4. The aortic valve is sclerotic, no stenosis and mild to moderate regurgitation. 5. The mitral valve is sclerotic, mild mitral regurgitation. 6. 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 7. Severe tricuspid regurgitation. 8. PISA EROA 0.79cm2 and regurgitation volume 113cc. 9. 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 10. Severely increased estimated pulmonary pressures by tricuspid regurgitation velocity and right atrial pressure (66 mmHg plus RAP). 11. 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 12. Moderate pericardial effusion. Status: Chronic (7) Chronic, continuous use of opioids: Problem details: - takes scheduled Percocet 6 times a day for chronic back pain Status: Chronic Time Spent With Patient Total time spent: Today I spent 70 minutes rounding on the patient. Greater than 50% included discussing care and living situation with the patient and his sister, discussing care with the team, reviewing data, updating and managing the care plan. Subjective Time Seen by Provider: :23 Date Seen: 04/18/23 Interval history: Deven wants to go home. This morning he did not want to talk about his medications or anything until I spoke with his sister because he just wanted to go home. He did tell me that he did not have any weakness, dizziness, lightheadedness, palpitations, syncope or blackouts, chest pain or shortness of breath. I called his sister, Luis Carlos, in spoke with her over the phone mid morning. She expressed concerns about [facility] assisted living. She said that she has tried to voice these concerns to management, but has been being pushed back and things have not changed. She is afraid to make too many waves because she is concerned that will change how Deven is treated there. She expressed concern about a particular situation a few months ago in which the nurse on the day shift for the assisted living facility left while Deven was acutely ill. Luis Carlos stated that Deven needed to go to the ER and felt the nurse failed to recongnize that. Luis Carlos said the nurse then asked Luis Carlos if she was going to take him or call the ambulance, but left work before getting any resolution to the situation, so Luis Carlos had to get Deven to the ER and he was admitted to the hospital. Luis Carlos came to the hospital around midday and I spoke with Deven and her in his room. She again expressed many concerns about his care at [facility]. Deven stated that he did not want palliative care or hospice and does want hospital care when needed. We spoke frankly about his multiple cardiac conditions and that he will likely need frequent medical care and adjustment to medications at this point in his life. I also made them aware of the recommendations from the envelope press operator. He notes that his nocturia is much improved and is hoping to go home on Flomax that he has been on in the hospital. Exam Narrative: Exam Narrative: General: No acute distress. Awake, alert, oriented x3. No pallor. No jaundice. Oropharynx: Clear. Mucous membranes moist. Cardiovascular: Bradycardic. Grade 3/6 holosystolic murmur across the precordium. Respiratory: Clear to auscultation bilaterally, no crackles or wheezes. Abdomen: Bowel sounds present. Soft, nondistended, nontender. Extremities: No pedal edema. Const: Vital Signs, click to edit/add: Vital Signs - 24 hr 04/17/23 20:45 04/17/23 23:00 04/17/23 23:30 Temperature 97.7 F Pulse Rate 34 L Pulse Rate [Right Pulse Oximeter] 47 L 49 L Respiratory Rate 18 18 Blood Pressure [Ri ght Arm] 143/59 H Pulse Oximetry 96 Oxygen Delivery Me thod Room Air 04/17/23 23:30 04/18/23 04:10 04/18/23 07:00 Temperature 98.1 F 98.7 F 97.5 F L Pulse Rate Pulse Rate [Right Pulse Oximeter] 47 L 41 L 54 L Respiratory Rate 18 18 18 Blood Pressure [Ri ght Arm] 161/74 H 126/55 L 159/55 H Pulse Oximetry 96 96 94 Oxygen Delivery Me thod Room Air Room Air Room Air 04/18/23 07:34 04/18/23 11:35 04/18/23 15:00 Temperature 97.5 F L 97.8 F Pulse Rate 42 L Pulse Rate [Right Pulse Oximeter] 52 L 49 L Respiratory Rate 16 16 Blood Pressure [Ri ght Arm] 129/56 L 139/57 L Pulse Oximetry 94 93 Oxygen Delivery Me thod Room Air Room Air 04/18/23 15:00 04/18/23 15:50 Temperature Pulse Rate 49 L Pulse Rate [Right Pulse Oximeter] 49 L Respiratory Rate 16 Blood Pressure [Ri ght Arm] Pulse Oximetry Oxygen Delivery Mi thod Labs Labs: Laboratory Results - last 24 hr 04/16/23 04/18/23 11:48 05:29 Sodium 125 L Potassium 4.5 Chloride 90 L Carbon Dioxide 26 Anion Gap 9 BUN 57 H Creatinine 1.2 Estimated Creat Clear 42.83 Estimated GFR 60 Glucose 102 Calcium 8.9 Ur Random Osmolality 223
--- NOTE | 2023-04-18 17:13 | PC.NURSE ---
Pt has had no c/o pain today though takes scheduled Percocet Q4H to treat chronic back pain. Pt's sister has been visiting and met with MD Thomas to discuss pt's current health status and discharge plan. Lung sounds noted to be diminished though pt denies cough when asked with no coughing noted. He denies numbness, tingling, CP and N/V when asked. Last BM of 04/16/23 though bowel sounds remain active 4. Pt remains continent of bladder using bedside urinal. Pt has no edema noted. He continues to be bradycardic with last pulse 49. AM dose of Coreg held per order due to bradycardia. Pt ate 75% of breakfast and 100% of lunch. He is on fluid restriction of 1500 mL per MD Thomas- pt is aware of this. Bed and chair alarms continue to be utilized though pt has not made attempts to self-transfer observed by staff. He continues to transfer with SBA using GB and 4WW.
[2023-04-18] MEDS: ENOXAPARIN 40 MG/0.4 ML INJ SUBCUT (21:33)
[2023-04-18] MEDS: TAMSULOSIN HCL 0.4 MG CAPSULE PO (21:34)
[2023-04-18] MEDS: ATORVASTATIN CALCIUM 40 MG TABLET PO (21:35)
[2023-04-18] MEDS: MELATONIN 3 MG TABLET PO (22:53)
[2023-04-19 02:55] VITALS: BP 141/70; PULSE 53; RESP 18; TEMP 36.8; O2SAT 94
[2023-04-19] MEDS: OxyCODONE/APAP 5-325 TABLET 1 TAB PO ×2 (04:16→09:00)
[2023-04-19 06:20] LABS: Chloride* 92 mmol/L (96-114); Potassium* 4.3 mmol/L (3.6-5.1); Sodium* 129 mmol/L (135-149)
[2023-04-19 06:22] LABS: Creatinine* 1.1 mg/dL (0.5-1.5); Est. Creatinine Clearance* 46.72; Estimated Glomerular Filt Rate 67 ml/min
[2023-04-19 06:23] LABS: Anion Gap 6 mEq/L (7-15); Blood Urea Nitrogen* 54 mg/dL (7-30); Calcium* 9.2 mg/dL (8.4-10.6); Carbon Dioxide* 31 mmol/L (20-32); Glucose* 101 mg/dL (60-115)
--- NOTE | 2023-04-19 06:41 | PC.NURSE ---
Shift note: HR 40-50-ies, chronic pain treated per eMAR. Pt is voiding, had a BM
[2023-04-19] MEDS: OMEPRAZOLE 20 MG CAPSULE DR PO (06:53)
[2023-04-19 07:33] VITALS: PULSE 46
[2023-04-19 08:22] VITALS: BP 139/56; PULSE 48; RESP 18; TEMP 36.8; O2SAT 93
[2023-04-19] MEDS: allopurinoL 300 MG TABLET PO (08:59)
[2023-04-19] MEDS: SODIUM CHLORIDE 0.9 % (FLUSH) 10 ML SYRINGE 5 ML IVF (08:59)
[2023-04-19] MEDS: ASPIRIN 81 MG TABLET EC PO (08:59)
[2023-04-19] MEDS: TORSEMIDE 20 MG TABLET 80 MG PO (08:59)
[2023-04-19] MEDS: SILDENAFIL CITRATE 20 MG TABLET PO (08:59)
[2023-04-19] MEDS: SENNOSIDES 1 TAB TABLET PO (08:59)
[2023-04-19] MEDS: polyethylene glycoL 3350 17 GM PACK PO (09:00)
--- NOTE | 2023-04-19 09:42 | PM.DS1 ---
DS: Providers Provider Time Seen by Provider: 07:59 Date Seen: 04/19/23 Date of admission: 04/16/23 15:13 Primary care physician: Ervin Chapin MD Admitting Clinician: Virginia Shen MD Attending Physician on discharge: Lucia Thomas MD Date of Discharge: 04/19/23 DS: Diagnosis Discharge Diagnosis (1) Acute hyperkalemia: Status: Resolved Problem details: - Likely due to combination of spironolactone and losartan. Holding spironolactone permanently. Losartan was held during hospitalization and will be restarted at a lower dose upon discharge. Recommend follow up labs in 3 days and PCP to see him this week. - resolved (2) Acute hyponatremia: Status: Acute Problem details: - 04/16/23 Likely due to combination of spironolactone and losartan. - 04/17 Holding spironolactone permanently and losartan temporarily. Sodium increasing, within goal for slow correction to prevent central pontine myelinolysis. Continue to monitor. - 04/18 slow improvement over the last 24 hours. Torsemide may be contributing to this however I do not think we can decrease this due to heart failure. I will stop trazodone as this may be contributing to hyponatremia and start him on a fluid restriction. He has been doing a fluid restriction by himself as an outpatient, but for some reason this did not appear to have continued when he was admitted. - 04/19 improved to 129 today. Discharge home on daily torsemide and lower dose of losartan, outpatient labs in 3 days, PCP this week. (3) SSS (sick sinus syndrome): Status: Acute Problem details: - bradycardic, chronic afib, has been on coreg 12.5mg BID at home with reported bradycardia there, too. Completely asymptomatic according to patient. - I spoke with Dr. Tomas from [facility] 04/18/23 who recommended just stopping Coreg at this time since patient is asymptomatic. He also recommended Zio patch for 2 weeks as an outpatient and then follow up with outpatient Cardiology after that. Patient and family aware of these recommendations. (4) Chronic atrial fibrillation: Status: Chronic Problem details: - not on anticoagulation due to history of severe GI bleed about 14 years ago, he has been on ASA as an outpatient. I have recommended that the patient discuss anticoagulation with the pipeline controller when he sees them in a few weeks. (5) Chronic right-sided heart failure: Status: Chronic Problem details: - chronic/severe pulmonary HTN and severe TR - patient and family are aware of severity of illness, not interested in transitioning to comfort-focused measures at this time - follow Is/Os closely: as of 03/28/23, diuresing well and down 7kg - will cut torsemide dose in half, has been on 80 mg b.i.d., it has been decreased to 80 mg once daily and he is currently doing well on this dose. - TTE 03/26/23 with results below: Final Impressions: 1. Normal left ventricular size, moderately increased wall thickness, normal global systolic function, calculated EF of 63 %. 2. Right ventricular cavity size is severely enlarged, global systolic RV function is moderately reduced. 3. Severely enlarged left atrium. 4. The aortic valve is sclerotic, no stenosis and mild to moderate regurgitation. 5. The mitral valve is sclerotic, mild mitral regurgitation. 6. 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 7. Severe tricuspid regurgitation. 8. PISA EROA 0.79cm2 and regurgitation volume 113cc. 9. 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 10. Severely increased estimated pulmonary pressures by tricuspid regurgitation velocity and right atrial pressure (66 mmHg plus RAP). 11. 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 12. Moderate pericardial effusion. (6) Pulmonary hypertension: Status: Chronic Problem details: - Cause of pulmonary hypertension is uncertain. He has preserved left ventricular function without marked aortic or mitral valvular disease. Severe tricuspid regurg. No history of PE. No history of parenchymal lung disease, COPD, asthma, interstitial lung disease. - Sildenafil 20 mg 3 times daily, will continue this in addition to measures above (7) Severe tricuspid valve regurgitation: Status: Chronic Problem details: - Monitor heart failure closely with fluid resuscitation. May need to consider possible valve replacement therapy with cardiology consultation in outpatient setting, although patient may not be appropriate for surgery given multiple medical issues. (8) Chronic kidney disease, stage 3: Status: Chronic Problem details: - Stable (9) Insomnia: Status: Acute Problem details: - Patient has insomnia making it hard to fall asleep and then awakens about every hour to urinate and then has trouble falling asleep again. Benzodiazepines are relatively contraindicated with oxycodone. - Addressed the urinary frequency/nocturia, and insomnia improved in the hospital. (10) Nocturia: Status: Acute Problem details: Awakens every hour at night. No previous diagnosis of prostate disease. No previous prostate surgery. Trial of tamsulosin is going well. Continue upon discharge. (11) Chronic, continuous use of opioids: Status: Chronic Problem details: - takes scheduled Percocet 6 times a day for chronic back pain (12) Chronic back pain: Status: Acute Problem details: According to patient, subsequent to back surgery DS: Summary Hospital Course Hospital Course: 82 y/o male with severe pulm HTN, severe TR, chronic right sided CHF who had medication adjustment in hospital 3 weeks ago presented asymptomatic for hyperkalemia and hyponatremia discovered on outpatient labs. Spironolactone and losartan were held. Torsemide was decreased to daily dosing and trazodone was discontinued. Patient is on a free water restriction. He has had good improvement in electrolytes and remains asymptomatic. Also noted during this hospital stay was bradycardia. Coreg has been discontinued, but this persists. He is asymptomatic. Plan is for Zio patch and f/u with cardiology. Please see diagnoses above for full details. Time Spent with Patient Time attestation: Total time spent providing and/or coordinating discharge services: Exam Narrative: Exam Narrative: General: No acute distress. Awake, alert, oriented. No pallor. No jaundice. Oropharynx: Clear. Mucous membranes moist. Cardiovascular: Bradycardic. Grade 3/6 holosystolic murmur across the precordium. Respiratory: Clear to auscultation bilaterally, no crackles or wheezes. Abdomen: Bowel sounds present. Soft, nondistended, nontender. Extremities: No pedal edema. Const: Vital Signs, click to edit/add: Vital Signs - 24 hr 04/18/23 11:35 04/18/23 15:00 04/18/23 15:00 Temperature 97.5 F L 97.8 F Pulse Rate Pulse Rate [Right Pulse Oximeter] 52 L 49 L 49 L Respiratory Rate 16 16 16 Blood Pressure [Ri ght Arm] 129/56 L 139/57 L Pulse Oximetry 94 93 Oxygen Delivery Me thod Room Air Room Air 04/18/23 15:50 04/18/23 19:00 04/18/23 23:00 Temperature 98 F Pulse Rate 49 L 46 L Pulse Rate [Right Pulse Oximeter] 49 L Respiratory Rate 18 Blood Pressure [Ri ght Arm] 114/77 Pulse Oximetry 93 Oxygen Delivery Me thod Room Air 04/18/23 23:00 04/18/23 23:00 04/19/23 02:55 Temperature 98.2 F Pulse Rate Pulse Rate [Right Pulse Oximeter] 49 L 43 L 53 L Respiratory Rate 18 18 18 Blood Pressure [Ri ght Arm] 141/70 H Pulse Oximetry 93 94 Oxygen Delivery Me thod Room Air Room Air 04/19/23 07:33 Temperature Pulse Rate 46 L Pulse Rate [Right Pulse Oximeter] Respiratory Rate Blood Pressure [Ri ght Arm] Pulse Oximetry Oxygen Delivery Me thod DS: Data Data Completed and Pending Completed studies during hospitalization: Procedures 04/16/2023 EKG: Atrial fibrillation with slow ventricular response, heart rate 50 beats per minute, nonspecific ST abnormality. Abnormal EKG. 04/17/2023 EKG: Atrial fibrillation with slow ventricular response, 42 beats per minute. Abnormal EKG. Ordering Physician: Richmond García D.O. Date of Service: 04/16/23 Procedure(s): XR chest 1V portable Accession Number(s): [id number] cc: Richmond García D.O.; Ervin Chapin M.D.~ For Patients: As a result of the Century Cures Act, medical imaging exams and procedure reports are released immediately into your electronic medical record. You may view this report before your referring provider. If you have questions, please contact your health care provider. INDICATION: Cough. TECHNIQUE: Chest 2 views. COMPARISON: March 24, 2023. FINDINGS: Cardiovascular and mediastinum: Stable cardiomegaly with vascular congestion. Lungs and pleural spaces: Interstitial prominence. No sign of infiltrate or mass. No sign of pleural effusion. No pneumothorax. Bones and soft tissues: No significant findings. IMPRESSION: Stable cardiomegaly, vascular congestion, and interstitial prominence possibly mild pulmonary edema. Dictated by Adal Van MD @ 04/16/2023 3:11:18 PM (Electronically Signed) Labs on day of discharge: Labs from last 24 hours 04/19/23 05:40 Sodium 129 L Potassium 4.3 Chloride 92 L Carbon Dioxide 31 Anion Gap 6 L BUN 54 H Creatinine 1.1 Estimated Creat Clear 46.72 Estimated GFR 67 Glucose 101 Calcium 9.2 Discharge Plan Discharge Disposition: Xfer [facility] Date of Admission: 04/16/23 15:13 Attending Provider on Discharge: Lucia Thomas Primary Care Provider: Ervin Chapin Condition: Stable Discharge Medications: New melatonin 3 mg Tablet 3 - 6 mg PO HS Qty: 60 0RF tamsulosin 0.4 mg Capsule 0.4 mg PO HS Qty: 30 0RF losartan 25 mg tablet 25 mg PO DAILY Qty: 30 0RF Continued clotrimazole [Antifungal (clotrimazole)] 1 % cream 1 applic topical BID PRN allopurinol 300 mg tablet 300 mg PO DAILY aspirin 81 mg tablet,delayed release (DR/EC) 81 mg PO DAILY atorvastatin 40 mg tablet 40 mg PO HS polyethylene glycol 3350 17 gram/dose powder 17 g PO DAILY Patient Comments: GIVE 17GM BY MOUTH ONE TIME A DAY FOR CONSTIPATION MIX WITH 4-8 OUNCES(120-240CC) OF LIQUID omeprazole 20 mg capsule,delayed release(DR/EC) 20 mg PO DAILY oxycodone-acetaminophen 5-325 mg tablet 1 tab PO Q4H sennosides [senna] 8.6 mg tablet 8.6 mg PO BID sildenafil (pulm.hypertension) 20 mg tablet 20 mg PO TID benzonatate 100 mg capsule 100 mg PO Q4H PRN guaifenesin 100 mg/5 mL liquid 200 mg PO Q4H PRN (Reason: cough) torsemide 20 mg Tablet 80 mg PO DAILY 30 Days Qty: 120 0RF Discontinued carvedilol 12.5 mg tablet 12.5 mg PO BID losartan 50 mg Tablet 50 mg PO DAILY Qty: 30 0RF trazodone 50 mg tablet 50 mg PO QHS PRNQty: 30 0RF spironolactone 25 mg tablet 25 mg PO DAILY Discharge Orders: Discharge Order (Routine); Ordered 04/19/23 Ordered By: Lucia Thomas Additional Instructions: ZIO patch for cardiac monitoring for 2 weeks, then follow up with cardiology. Activity Level: No Restrictions Discharge Diet: Heart Healthy (2 gm sodium, low fat) and 1500 ml Fluid Restriction Follow Up Appointments: Ervin Chapin MD [Primary Care Provider] - (this week) Forms: [facility] Info Instructions Admit to: Assisted Living Discharge Potential: Poor Length of Stay: >90 days Can use facility standing orders?: Yes Code Status: DNR/DNI Oxygen: No Urinary Catheter: No Lab Orders: BMP in 3 days Orders are good >30 days: No Signature: Lucia Thomas MD
--- NOTE | 2023-04-19 10:22 | REH.OT ---
Verbal order for OT/PT evaluation. Patient declined all therapy assessments. He will discharge back to [facility] today.
--- NOTE | 2023-04-19 10:37 | PC.SOCIAL ---
Discharge planning: Called [facility] and spoke with Cindy who states she will visit pt at the hospital prior to discharge to make sure he can return to same level of care at [facility]. Cindy states they can do the labs at the facility with MD order on discharge instructions. There is a $15/time charge for the labs. Met with pt who is aware and agrees with this plan. He is requesting transport by the facility van at discharge. Pt requested social director contact his sister. Called sister who is aware and agrees with discharge plan. Transportation has been arranged by facility for 12:30 supervisor opening and picking today. Sister states she will meet pt at [facility] upon his return. She is pleased with plan for labs to be done at [facility] and is aware of the charge for this and that is could be switched to an out-pt lab visit if this is better for pt in the future. Sister shared that she had spoken with physician about some care concerns at [facility] over the weekend, but wanted to share that these were concerns from the past several months ago, and that care has been fine at the facility once this was resolved. Shared with sister the mandated reporting requirements and how it is up to the provider to determine need to report as a mandated mail carrier and clerk. She shared that she has worked in parts counterman care and understands the mandated reporting requirements. Sister shared with social director that she has no current concerns about the care pt is receiving at [facility] and is able to speak openly with staff at the facility if she has any concerns in the future. Sister is aware of how to contact social director if she has any additional questions or concerns.
--- NOTE | 2023-04-19 12:17 | PC.SOCIAL ---
Social work: Received call from pt's [facility] Collaborative Physician, Jeanine [phone]. Updated Jeanine on discharge plan for today. She was appreciative of information provided.
== END 2023-04-19 12:30 | DRG 425 ==
LOC: ED 13:06 → MEDSURG 13:17
PROVIDERS: Admitting Provider Family Medicine; Emergency Provider Student in an Organized Health Care Education/Training Program; PCP Family Medicine; Visit Provider Family Medicine
DX: E87.1 Hypo-osmolality and hyponatremia (principal); E87.5 Hyperkalemia; T50.0X5A Adverse effect of mineralocorticoids and their antagonists, initial encounter; T46.5X5A Adverse effect of other antihypertensive drugs, initial encounter; I07.1 Rheumatic tricuspid insufficiency; I27.29 Other secondary pulmonary hypertension; R00.1 Bradycardia, unspecified; I13.0 Hypertensive heart and chronic kidney disease with heart failure and stage 1 through stage 4 chronic kidney disease, or unspecified chronic kidney disease; N18.30 Chronic kidney disease, stage 3 unspecified; I50.812 Chronic right heart failure; I49.5 Sick sinus syndrome; I48.20 Chronic atrial fibrillation, unspecified; R35.1 Nocturia; F11.90 Opioid use, unspecified, uncomplicated; F10.21 Alcohol dependence, in remission; G89.29 Other chronic pain; G47.00 Insomnia, unspecified; K21.9 Gastro-esophageal reflux disease without esophagitis; Z86.73 Personal history of transient ischemic attack (TIA), and cerebral infarction without residual deficits
CPT/HCPCS: 36415; 71045; 80048; 80053; 81001; 82436; 82570; 83735; 83880; 83930; 83935; 84100; 84300; 84443; 84484; 85025; 87086; 93005; 99283; 99284; 99285; A9270; J1650; J7030

== ENCOUNTER 2023-04-22 13:35 | Outpatient (REF) | payer BC, SELFPAY ==
[2023-04-22 14:10] LABS: Chloride* 95 mmol/L (96-114); Potassium* 4.2 mmol/L (3.6-5.1); Sodium* 129 mmol/L (135-149)
[2023-04-22 14:13] LABS: Anion Gap 8 mEq/L (7-15); Blood Urea Nitrogen* 47 mg/dL (7-30); Carbon Dioxide* 26 mmol/L (20-32); Creatinine* 1.1 mg/dL (0.5-1.5); Estimated Glomerular Filt Rate 67 ml/min
[2023-04-22 14:14] LABS: Calcium* 9.4 mg/dL (8.4-10.6); Glucose* 146 mg/dL (60-115)
== END 2023-04-22 13:36 | disposition home or self-care (01) ==
LOC: NPINS 13:35
PROVIDERS: PCP Family Medicine; Visit Provider Nurse Practitioner Gerontology
DX: E87.1 Hypo-osmolality and hyponatremia (principal)
CPT/HCPCS: 80048

== ENCOUNTER 2023-04-27 11:18 | Outpatient (REF) | payer BC, SELFPAY ==
[2023-04-27 13:20] LABS: Chloride* 94 mmol/L (96-114)
[2023-04-27 13:21] LABS: Potassium* 4.6 mmol/L (3.6-5.1); Sodium* 134 mmol/L (135-149)
[2023-04-27 13:23] LABS: Estimated Glomerular Filt Rate 75 ml/min
[2023-04-27 13:24] LABS: Anion Gap 11 mEq/L (7-15); Blood Urea Nitrogen* 40 mg/dL (7-30); Calcium* 9.4 mg/dL (8.4-10.6); Carbon Dioxide* 29 mmol/L (20-32); Glucose* 114 mg/dL (60-115)
== END 2023-04-27 11:19 | disposition home or self-care (01) ==
LOC: NPINS 11:18
PROVIDERS: PCP Family Medicine; Visit Provider Nurse Practitioner Gerontology
DX: E87.1 Hypo-osmolality and hyponatremia (principal)
CPT/HCPCS: 80048

== ENCOUNTER 2023-05-04 10:10 | Outpatient (REF) | payer BC, SELFPAY ==
[2023-05-04 11:54] LABS: Chloride* 96 mmol/L (96-114); Sodium* 138 mmol/L (135-149)
[2023-05-04 11:55] LABS: Potassium* 4.2 mmol/L (3.6-5.1)
[2023-05-04 11:57] LABS: Creatinine* 1.1 mg/dL (0.5-1.5); Estimated Glomerular Filt Rate 67 ml/min
[2023-05-04 11:58] LABS: Anion Gap 10 mEq/L (7-15); Blood Urea Nitrogen* 25 mg/dL (7-30); Carbon Dioxide* 32 mmol/L (20-32); Glucose* 150 mg/dL (60-115)
== END 2023-05-04 10:11 | disposition home or self-care (01) ==
LOC: NPINS 10:10
PROVIDERS: PCP Family Medicine; Visit Provider Nurse Practitioner Gerontology
DX: I50.9 Heart failure, unspecified (principal)
CPT/HCPCS: 80048

== ENCOUNTER 2023-05-18 13:18 | Outpatient (REF) | payer BC, SELFPAY ==
[2023-05-18 14:05] LABS: Chloride* 96 mmol/L (96-114); Potassium* 4.1 mmol/L (3.6-5.1); Sodium* 137 mmol/L (135-149)
[2023-05-18 14:08] LABS: Anion Gap 15 mEq/L (7-15); Blood Urea Nitrogen* 16 mg/dL (7-30); Carbon Dioxide* 26 mmol/L (20-32); Creatinine* 0.8 mg/dL (0.5-1.5); Estimated Glomerular Filt Rate 88 ml/min
[2023-05-18 14:09] LABS: Calcium* 8.8 mg/dL (8.4-10.6); Glucose* 141 mg/dL (60-115)
== END 2023-05-18 13:19 | disposition home or self-care (01) ==
LOC: NPINS 13:18
PROVIDERS: PCP Family Medicine; Visit Provider Nurse Practitioner Gerontology
DX: I50.9 Heart failure, unspecified (principal)
CPT/HCPCS: 80048

== ENCOUNTER 2023-06-01 12:42 | Outpatient (REF) | payer BC, SELFPAY ==
[2023-06-01 14:02] LABS: Chloride* 99 mmol/L (96-114); Potassium* 4.2 mmol/L (3.6-5.1); Sodium* 140 mmol/L (135-149)
[2023-06-01 14:05] LABS: Anion Gap 13 mEq/L (7-15); Blood Urea Nitrogen* 19 mg/dL (7-30); Carbon Dioxide* 28 mmol/L (20-32); Creatinine* 0.9 mg/dL (0.5-1.5); Estimated Glomerular Filt Rate 85 ml/min
[2023-06-01 14:06] LABS: Glucose* 117 mg/dL (60-115)
== END 2023-06-01 12:43 | disposition home or self-care (01) ==
LOC: NPINS 12:42
PROVIDERS: PCP Family Medicine; Visit Provider Nurse Practitioner Gerontology
DX: I50.9 Heart failure, unspecified (principal)
CPT/HCPCS: 80048

== ENCOUNTER 2023-06-22 11:08 | Outpatient (REF) | payer BC, SELFPAY ==
[2023-06-22 11:58] LABS: Chloride* 99 mmol/L (96-114); Potassium* 3.5 mmol/L (3.6-5.1); Sodium* 135 mmol/L (135-149)
[2023-06-22 12:01] LABS: Anion Gap 9 mEq/L (7-15); Blood Urea Nitrogen* 25 mg/dL (7-30); Calcium* 8.2 mg/dL (8.4-10.6); Carbon Dioxide* 27 mmol/L (20-32); Creatinine* 1.2 mg/dL (0.5-1.5); Estimated Glomerular Filt Rate 60 ml/min; Glucose* 139 mg/dL (60-115)
== END 2023-06-22 11:09 | disposition home or self-care (01) ==
LOC: NPINS 11:08
PROVIDERS: PCP Family Medicine; Visit Provider Nurse Practitioner Gerontology
DX: I50.9 Heart failure, unspecified (principal)
CPT/HCPCS: 80048

== ENCOUNTER 2023-07-27 09:18 | Outpatient (REF) | payer BC, SELFPAY ==
[2023-07-27 09:48] LABS: Chloride* 99 mmol/L (96-114); Potassium* 3.7 mmol/L (3.6-5.1); Sodium* 137 mmol/L (135-149)
[2023-07-27 09:50] LABS: Creatinine* 0.9 mg/dL (0.5-1.5); Estimated Glomerular Filt Rate 85 ml/min
[2023-07-27 09:51] LABS: Anion Gap 10 mEq/L (7-15); Blood Urea Nitrogen* 21 mg/dL (7-30); Calcium* 9.2 mg/dL (8.4-10.6); Carbon Dioxide* 28 mmol/L (20-32); Glucose* 115 mg/dL (60-115)
== END 2023-07-27 09:19 | disposition home or self-care (01) ==
LOC: NPINS 09:18
PROVIDERS: PCP Family Medicine; Visit Provider Nurse Practitioner Gerontology
DX: I50.9 Heart failure, unspecified (principal)
CPT/HCPCS: 80048

== ENCOUNTER 2023-08-31 15:02 | Outpatient (REF) | payer BC, SELFPAY ==
[2023-08-31 16:21] LABS: Chloride* 99 mmol/L (96-114); Sodium* 136 mmol/L (135-149)
[2023-08-31 16:22] LABS: Potassium* 4.1 mmol/L (3.6-5.1)
[2023-08-31 16:24] LABS: Creatinine* 0.8 mg/dL (0.5-1.5); Estimated Glomerular Filt Rate 88 ml/min
[2023-08-31 16:25] LABS: Anion Gap 11 mEq/L (7-15); Blood Urea Nitrogen* 20 mg/dL (7-30); Calcium* 9.1 mg/dL (8.4-10.6); Carbon Dioxide* 26 mmol/L (20-32); Glucose* 138 mg/dL (60-115)
== END 2023-08-31 15:03 | disposition home or self-care (01) ==
LOC: NPINS 15:02
PROVIDERS: PCP Family Medicine; Visit Provider Nurse Practitioner Gerontology
DX: I50.9 Heart failure, unspecified (principal)
CPT/HCPCS: 80048

== ENCOUNTER 2023-10-05 11:15 | Outpatient (CLI) | payer BC, SELFPAY ==
[2023-10-05 11:56] LABS: Chloride* 103 mmol/L (96-114); Potassium* 3.8 mmol/L (3.6-5.1); Sodium* 139 mmol/L (135-149)
[2023-10-05 11:58] LABS: Creatinine* 0.8 mg/dL (0.5-1.5); Estimated Glomerular Filt Rate 88 ml/min
[2023-10-05 11:59] LABS: Anion Gap 9 mEq/L (7-15); Blood Urea Nitrogen* 23 mg/dL (7-30); Carbon Dioxide* 27 mmol/L (20-32); Glucose* 96 mg/dL (60-115)
[2023-10-05 12:00] LABS: Calcium* 8.6 mg/dL (8.4-10.6)
== END 2023-10-05 11:16 | disposition home or self-care (01) ==
LOC: NPINS 11:17
PROVIDERS: PCP Family Medicine; Visit Provider Family Medicine
DX: I50.9 Heart failure, unspecified (principal)
CPT/HCPCS: 80048

== ENCOUNTER 2023-11-02 12:37 | Outpatient (REF) | payer BC, SELFPAY ==
[2023-11-02 13:25] LABS: Chloride* 102 mmol/L (96-114); Sodium* 138 mmol/L (135-149)
[2023-11-02 13:27] LABS: Creatinine* 0.8 mg/dL (0.5-1.5); Estimated Glomerular Filt Rate 88 ml/min
[2023-11-02 13:28] LABS: Anion Gap 11 mEq/L (7-15); Blood Urea Nitrogen* 25 mg/dL (7-30); Calcium* 8.8 mg/dL (8.4-10.6); Carbon Dioxide* 25 mmol/L (20-32); Glucose* 116 mg/dL (60-115)
== END 2023-11-02 12:38 | disposition home or self-care (01) ==
LOC: NPINS 12:37
PROVIDERS: PCP Family Medicine; Visit Provider Nurse Practitioner Gerontology
DX: I50.9 Heart failure, unspecified (principal)
CPT/HCPCS: 80048

== ENCOUNTER 2023-11-30 13:08 | Outpatient (REF) | payer BC, SELFPAY ==
[2023-11-30 14:17] LABS: Chloride* 100 mmol/L (96-114); Sodium* 136 mmol/L (135-149)
[2023-11-30 14:20] LABS: Anion Gap 9 mEq/L (7-15); Carbon Dioxide* 27 mmol/L (20-32); Creatinine* 0.8 mg/dL (0.5-1.5); Estimated Glomerular Filt Rate 88 ml/min
[2023-11-30 14:21] LABS: Blood Urea Nitrogen* 23 mg/dL (7-30); Calcium* 9.1 mg/dL (8.4-10.6); Glucose* 87 mg/dL (60-115)
== END 2023-11-30 13:09 | disposition home or self-care (01) ==
LOC: NPINS 13:08
PROVIDERS: PCP Family Medicine; Visit Provider Nurse Practitioner Gerontology
DX: I50.9 Heart failure, unspecified (principal)
CPT/HCPCS: 80048

== ENCOUNTER 2024-02-01 11:49 | Outpatient (REF) | payer BC, SELFPAY ==
[2024-02-01 12:15] LABS: Chloride* 101 mmol/L (96-114); Sodium* 136 mmol/L (135-149)
[2024-02-01 12:18] LABS: Anion Gap 9 mEq/L (7-15); Carbon Dioxide* 26 mmol/L (20-32); Creatinine* 0.9 mg/dL (0.5-1.5); Estimated Glomerular Filt Rate 85 ml/min
[2024-02-01 12:19] LABS: Blood Urea Nitrogen* 22 mg/dL (7-30); Calcium* 9.1 mg/dL (8.4-10.6); Glucose* 91 mg/dL (60-115)
== END 2024-02-01 11:50 | disposition home or self-care (01) ==
LOC: NPINS 11:49
PROVIDERS: PCP Family Medicine; Visit Provider Nurse Practitioner Gerontology
DX: I50.9 Heart failure, unspecified (principal)
CPT/HCPCS: 80048

== ENCOUNTER 2024-04-04 12:05 | Outpatient (REF) | payer BC, SELFPAY ==
[2024-04-04 12:49] LABS: Chloride* 95 mmol/L (96-114); Potassium* 3.9 mmol/L (3.6-5.1); Sodium* 134 mmol/L (135-149)
[2024-04-04 12:52] LABS: Anion Gap 12 mEq/L (7-15); Blood Urea Nitrogen* 24 mg/dL (7-30); Carbon Dioxide* 27 mmol/L (20-32); Estimated Glomerular Filt Rate 75 ml/min
[2024-04-04 12:53] LABS: Calcium* 9.2 mg/dL (8.4-10.6); Glucose* 100 mg/dL (60-115)
== END 2024-04-04 12:06 | disposition home or self-care (01) ==
LOC: NPINS 12:05
PROVIDERS: PCP Family Medicine; Visit Provider Nurse Practitioner Gerontology
DX: I50.9 Heart failure, unspecified (principal)
CPT/HCPCS: 80048

== ENCOUNTER 2024-06-05 10:10 | Outpatient (REF) | payer BC, SELFPAY ==
[2024-06-05 12:00] LABS: Chloride* 96 mmol/L (96-114); Potassium* 3.5 mmol/L (3.6-5.1); Sodium* 136 mmol/L (135-149)
[2024-06-05 12:03] LABS: Anion Gap 8 mEq/L (7-15); Blood Urea Nitrogen* 37 mg/dL (7-30); Carbon Dioxide* 32 mmol/L (20-32); Creatinine* 0.9 mg/dL (0.5-1.5); Estimated Glomerular Filt Rate 85 ml/min; Glucose* 89 mg/dL (60-115)
== END 2024-06-05 10:11 | disposition home or self-care (01) ==
LOC: NPINS 10:10
PROVIDERS: PCP Family Medicine; Visit Provider Nurse Practitioner Gerontology
DX: I50.9 Heart failure, unspecified (principal)
CPT/HCPCS: 80048

== ENCOUNTER 2024-07-04 10:55 | Outpatient (REF) | payer BC, SELFPAY ==
[2024-07-04 11:26] LABS: Chloride* 96 mmol/L (96-114); Sodium* 136 mmol/L (135-149)
[2024-07-04 11:27] LABS: Potassium* 3.5 mmol/L (3.6-5.1)
[2024-07-04 11:29] LABS: Blood Urea Nitrogen* 40 mg/dL (7-30); Estimated Glomerular Filt Rate 75 ml/min
[2024-07-04 11:30] LABS: Anion Gap 9 mEq/L (7-15); Calcium* 9.2 mg/dL (8.4-10.6); Carbon Dioxide* 31 mmol/L (20-32); Glucose* 94 mg/dL (60-115)
== END 2024-07-04 10:56 | disposition home or self-care (01) ==
LOC: NPINS 10:55
PROVIDERS: PCP Family Medicine; Visit Provider Nurse Practitioner Gerontology
DX: I50.9 Heart failure, unspecified (principal)
CPT/HCPCS: 80048

== ENCOUNTER 2024-10-03 11:10 | Outpatient (REF) | payer BC, SELFPAY ==
[2024-10-03 12:37] LABS: Chloride* 93 mmol/L (96-114); Potassium* 3.3 mmol/L (3.6-5.1); Sodium* 137 mmol/L (135-149)
[2024-10-03 12:40] LABS: Anion Gap 13 mEq/L (7-15); Blood Urea Nitrogen* 46 mg/dL (7-30); Carbon Dioxide* 31 mmol/L (20-32); Creatinine* 1.3 mg/dL (0.5-1.5); Estimated Glomerular Filt Rate 54 ml/min
[2024-10-03 12:41] LABS: Calcium* 9.2 mg/dL (8.4-10.6); Glucose* 92 mg/dL (60-115)
== END 2024-10-03 11:11 | disposition home or self-care (01) ==
LOC: NPINS 11:10
PROVIDERS: PCP Family Medicine; Visit Provider Family Medicine
DX: I50.9 Heart failure, unspecified (principal); N18.30 Chronic kidney disease, stage 3 unspecified
CPT/HCPCS: 80048

== ENCOUNTER 2024-10-31 11:06 | Outpatient (REF) | payer BC, SELFPAY ==
[2024-10-31 12:13] LABS: Chloride* 88 mmol/L (96-114); Potassium* 3.3 mmol/L (3.6-5.1); Sodium* 133 mmol/L (135-149)
[2024-10-31 12:15] LABS: Blood Urea Nitrogen* 61 mg/dL (7-30); Creatinine* 1.4 mg/dL (0.5-1.5); Estimated Glomerular Filt Rate 50 ml/min
[2024-10-31 12:16] LABS: Anion Gap 13 mEq/L (7-15); Calcium* 9.5 mg/dL (8.4-10.6); Carbon Dioxide* 32 mmol/L (20-32); Glucose* 97 mg/dL (60-115)
== END 2024-10-31 11:07 | disposition home or self-care (01) ==
LOC: NPINS 11:06
PROVIDERS: PCP Family Medicine; Referring Provider Nurse Practitioner Gerontology; Visit Provider Family Medicine
DX: I50.9 Heart failure, unspecified (principal)
CPT/HCPCS: 80048

== ENCOUNTER 2025-01-02 12:15 | Outpatient (REF) | payer BC, SELFPAY ==
[2025-01-02 13:50] LABS: Chloride* 96 mmol/L (96-114); Potassium* 3.2 mmol/L (3.6-5.1); Sodium* 136 mmol/L (135-149)
[2025-01-02 13:53] LABS: Anion Gap 11 mEq/L (7-15); Blood Urea Nitrogen* 51 mg/dL (7-30); Calcium* 9.4 mg/dL (8.4-10.6); Carbon Dioxide* 29 mmol/L (20-32); Creatinine* 1.3 mg/dL (0.5-1.5); Estimated Glomerular Filt Rate 54 ml/min; Glucose* 95 mg/dL (60-115)
== END 2025-01-02 12:16 | disposition home or self-care (01) ==
LOC: NPINS 12:15
PROVIDERS: PCP Family Medicine; Visit Provider Family Medicine
DX: I50.9 Heart failure, unspecified (principal); N18.30 Chronic kidney disease, stage 3 unspecified
CPT/HCPCS: 80048

== ENCOUNTER 2025-04-03 09:26 | Outpatient (REF) | payer BC, SELFPAY ==
[2025-04-03 10:40] LABS: Chloride* 90 mmol/L (96-114); Potassium* 3.0 mmol/L (3.6-5.1); Sodium* 134 mmol/L (135-149)
[2025-04-03 10:43] LABS: Anion Gap 13 mEq/L (7-15); Blood Urea Nitrogen* 46 mg/dL (7-30); Calcium* 9.4 mg/dL (8.4-10.6); Carbon Dioxide* 31 mmol/L (20-32); Creatinine* 1.6 mg/dL (0.5-1.5); Estimated Glomerular Filt Rate 42 ml/min; Glucose* 97 mg/dL (60-115)
--- OUTSIDE RECORDS SUMMARY | 2025-04-04 00:15 | XMS_ITS | Clinical Summary ---
Author Organization [facility] Address [address] [place] [address] Care Team Providers Care [employer] Clerk Name Role Phone Jill Donahue DO Primary Care Provider [phone] Allergies Active Allergy Reactions Criticality Noted Date Comments Cyclobenzaprine Other - Describe In Comment Field 03/11/2020 Muscle cramping Meloxicam Other - Describe In Comment Field 10/18/2013 Makes chest feel tight Nsaids (Non-Steroidal Anti-Inflammatory Drug) Other - Describe In Comment Field 03/11/2020 Bleeding ulcer Medications atorvastatin (LIPITOR) 40 mg tablet 0 Active carvediloL (COREG) 12.5 mg tablet 0 Active folic acid 1 mg tablet 0 Active NYAMYC powder APPLY TOPICALLY TO GROIN TWO TIMES DAILY FOR GROIN CANDIDIASIS FOR 21 DAYS 0 Active polyethylene glycoL (MIRALAX) 17 gram/dose powder MIX 17GM IN LIQUID & DRINK ONCE DAILY FOR CONSTIPATION 0 Active SENNA LAXATIVE 8.6 mg tablet TAKE 1 TABLET BY MOUTH TWICE DAILY NEEDED FOR CONSTIPATION 0 Active sildenafiL, pulm.hypertensi on, (REVATIO) 20 mg tablet 0 Active spironolactone (ALDACTONE) 25 mg tablet 0 Active allopurinoL (ZYLOPRIM) 300 mg tablet Take 300 mg by mouth. 0 Active aspirin (ECOTRIN) 81 mg enteric coated tablet Take 81 mg by mouth once daily. 2 Active Gas Relief 80, simethicone, 80 mg chewable tablet Chew 80 mg by mouth 3 times daily if needed. 1 Active omeprazole (PRILOSEC) 20 mg Delayed-Release capsule Take 20 mg by mouth. 2 Active oxyCODONE-aceta minophen (PERCOCET) 5-325 mg per tablet TAKE ONE TABLET BY MOUTH 6 TIMES DAILY 2 Active triamcinolone (ARISTOCORT; KENALOG) 0.1 % cream APPLY TO RIGHT LOWER LEG RASH TWICE DAILY UNTIL RASH GONE THEN NEEDED 1 Active torsemide (DEMADEX) 20 mg tablet TAKE 3 TABLETS BY MOUTH EVERY MORNING AND 2 TABS IN THE AFTERNOON 2 Active losartan (COZAAR) 50 mg tablet 2 Active potassium chloride (K-DUR, KLOR-CON M10) 10 mEq tablet 2 Active clotrimazole (LOTRIMIN) 1 % cream 5 Active metOLazone (ZAROXOLYN) 2.5 mg tablet 5 Active losartan (COZAAR) 25 mg tablet 5 Active Active Problems Problem Noted Date Diagnosed Date Pulmonary hypertension 02/22/2025 Constipation due to opioid therapy 09/26/2018 Overview (02/22/2025): Last Assessment & Plan: A: History of opioid induced constipation. Will treat with Polyethylene Glycol daily. P: -Start Polyethylene Glycol 3350 oral powder; Mix 1 capful to 17 gm afua mixed with full glass of water every day as directed. Hyperparathyroidism, secondary renal 09/26/2018 Overview (02/22/2025): Last Assessment & Plan: A: Refilled Cholecalciferol 1000 units daily today and we will continue supplementation as prescribed. P: - vitamin D3 (CHOLECALCIFEROL) 1000 UNIT oral tablet; Take 1 tablet (1,000 UNITS) by mouth daily. (HFpEF) heart failure with preserved ejection fr action 03/11/2018 Overview (02/22/2025): Last Assessment & Plan: A/P: See chronic atrial fibrillation and hypertension discussion. GI bleed 03/11/2018 Cataracts, bilateral 01/04/2018 Overview (02/22/2025): Last Assessment & Plan: Cataracts of both eyes - Mild, not visually significant - Monitor Dry eyes, bilateral 01/04/2018 Overview (02/22/2025): Last Assessment & Plan: Dry eyes, bilateral. 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 Ataxia 10/18/2017 Overview (02/22/2025): Last Assessment & Plan: Requests new walker in clinic today due to a broken brake--will refer to PT for this. Deep vein thrombosis (DVT) o f femoral vein of right lower extremity 07/28/2017 Overview (02/22/2025): 07/24/17 Nonocclusive thrombus involving the distal right femoral vein. Last Assessment & Plan: A/P: Most recent LE US completed 07/2017 including nonocclusive thrombus involving distal R femoral vein. Previously refused anticoagulation treatment, though continues on daily asa. Noted trace pretibial edema, 2+ pitting ankle and pedal edema on exam. Discussed red flag symptoms and encouraged to present to ED or return to clinic if experiencing. Continue daily asa 81 mg. Olecranon bursitis of left elbow 01/21/2017 Overview (02/22/2025): Last Assessment & Plan: 76yoM presenting with left elbow olecranon bursitis that has been present for 4 months Informed pt it may take up to a year before the bursitis completely resolves. Recommended pt apply pressure to the bursa as much as possible. Pt agreed and he was fit with an elbow size F tubagrip. Aspiration not indicated. Return immediately if bursa becomes increasingly red, warm, or painful. - RTC PRN Essential hypertension with goal blood pressure less than 140/90 01/18/2017 Overview (02/22/2025): Last Assessment & Plan: A: Blood pressure today is 148/64. He denies cardiac symptoms or palpitations. Will continue current regimen, refilled K-dur today. P: -Check BMP. -Continue atenolol 100 mg daily. -Continue amlodipine 10 mg daily. -Continue lisinopril 40 mg daily. -Continue K-dur 20 mEq daily, refilled today. -Continue lasix 40 mg BID. Elbow pain, left 01/12/2017 GI bleed due to NSAIDs 03/15/2015 Lumbosacral radiculopathy at L3 06/09/2012 Atrial fibrillation 02/04/2012 Overview (02/22/2025): Event monitor(2011) 30 days 12 hr of afib, burden 2% Last Assessment & Plan: A: Continues off DOAC. Discussed that this would be beneficial for him. Will continue to monitor, checking BMP today. P: -Check BMP. Epiretinal membrane (ERM) of right eye 1 Overview (02/22/2025): Last Assessment & Plan: Mild ERM, right eye. Appears stable. LIkely cause of 20/25 vision in the right eye. - Macular OCT today (01/19/2018): Normal in both eyes GERD (gastroesophageal reflux disease) 0 Overview (02/22/2025): Last Assessment & Plan: A: History of chronic reflux, well-controlled with Protonix 40 mg once per day. Consider trial of 20 mg daily dosing in the future. Checking CBC and ferritin levels today. P: -Continue Protonix 40 mg daily. -Check CBC with plt and ferritin. - CBC WITH PLTS/AUTO DIFF - FERRITIN Dermatitis 11/23/2008 Overview (02/22/2025): TMC 0.1% to leg bid works well Alcohol dependence, in remission 07/06/2008 Dyslipidemia 07/06/2008 Overview (02/22/2025): Last Assessment & Plan: Will recheck LDL in clinic today. Carotid artery stenosis 04/27/2008 Overview (02/22/2025): Last Assessment & Plan: Complaint of fluttering and lights in vision x 1 month. History of carotid stenosis causing similar symptoms in the past. S/P bilateral stenting. - Carotid ultrasound was normal - HVF 24-2 today (01/19/2018): Superior defect in right eye, scattered non- specific defects in left eye - At this point, do not suspect this is related to patients visual complaints/flashes - Return in 2 months; sooner with any new or worsening symptoms Lacunar infarction 04/26/2008 Overview (02/22/2025): Old hx HTN Insomnia 02/09/2008 Gout 11/24/2007 Hypokalemia 12/30/2006 Overview (02/22/2025): Diuetic dose reduced Last Assessment & Plan: A: Refilled K-dur 20 meq in clinic today. Will also recheck BMP. P: -Check BMP Encounter for fitting of dentures 11/05/2006 Encounters Date Type Department Care Team Description 03/14/2025 Telephone [facility] [address] [place] [address] Minerva Guevara MD Results (pathology) 03/07/2025 9:15 AM CDT Office Visit [facility] [address] [place] [address] Minerva Guevara MD Consult (Lesion left lower extremity referred by Dr. Miguel Ángel Donahue) 03/07/2025 Travel 03/06/2025 Telephone [facility] [address] [place] [address] Minerva Guevara MD Questions 02/22/2025 10:10 AM CDT Office Visit [facility] [address] [place] [address] Jill Donahue, DO Foot Problem (Bump ) 02/22/2025 Travel 02/21/2025 Nurse Triage [facility] - Joe Chaoza [address] [place] [address] Ervin Chapin MD Lump from Last 3 Months Social History Tobacco Use Types Packs/Day Years Used Date Smoking Tobacco: Never Smokeless Tobacco: Former Snuff Quit: 07/2019 Tobacco Cessation:Counseling Given: Yes Alcohol Use Answer Date Recorded How often do you have a drink containing alcohol ? 0 02/22/2025 How many drinks containing a lcohol do you have on a typical day when you are drinking? 0 02/22/2025 How often do you have five or more drinks on one occasion? 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 Respiratory Rate - - Oxygen Saturation 98% 03/07/2025 9:18 AM CDT Inhaled Oxygen Concentration - - Weight - - Height - - Body Mass Index - - Plan of Treatment Health Maintenance Due Date Last Done Comments Tetanus booster 09/09/1951 Depression screening for age 12+ 1952 BMI (ht and wt on same day) for age 18+ 1958 Pneumococcal series for age 50+ (1 of 2 - PCV) 09/09/1959 Zoster (shingles) series for age 50+ (1 of 2) 1990 Medicare Wellness for age 65+ 2005 RSV vaccine for adults or (1 - 1-dose 75+ series) 09/09/2015 COVID-19 vaccine series ( season) 2025 05/08/2021, 07/18/2020, 06/20/2020 Influenza Vaccine (#1) 2025 Hepatitis B series for 19+ Aged Out N o longer eligible based on patient's age to complete this topic Procedures Procedure Name Priority Date/Time Associated Diagnosis Comments PATH TISSUE EXAM Routine 03/07/2025 9:51 AM CDT Foot mass, left from Last 3 Months Results * PATH TISSUE EXAM (03/07/2025 9:51 AM CDT) Case Report Pathology Report Case: [id number] Authorizing Provider: Minerva Guevara MD Collected: 03/07/2025 0951 Ordering Location: [facility] Received: 03/07/2025 1127 Clinic Pathologist: Mu Hicks Jr., MD Specimen: Left Foot, mass 03/13/2025 12:11 PM CDT [facility] Final Diagnosis SOFT TISSUE, LEFT FOOT, EXCISION: Benign angiomyoma 03/13/2025 12:11 PM CDT [facility] at 1211 CDT Clinical Information Left foot mass 03/13/2025 12:11 PM CDT [facility] Gross Description A) Received in formalin, labeled with the patient's name and left foot mass, is an unoriented eller, firm, lobulated soft tissue excision measuring 1.5 x 1.1 x 0.9 cm. The external surface is inked black and the specimen is trisected revealing a solid, white/eller fibrous cut surface. The specimen is entirely submitted in 1 cassette. RAL 03/08/2025 03/13/2025 12:11 PM CDT [facility] Microscopic Description The final diagnosis is based on microscopic examination of appropriate sections of all specimens. An S-100 immunohistochemical stain was performed to evaluate for the possibility of this being a schwannoma; the stain is negative. 03/13/2025 12:11 PM CDT [facility] Additional Information Interpreted at [facility] - [address], [place] [address] Immunohistochemistry controls were reviewed and approved as appropriate by the pathologist during this examination. 03/13/2025 12:11 PM CDT [facility] Other (Left Foot) Non-Blood / Unknown 03/07/2025 9:51 AM CDT 03/07/2025 11:27 AM CDT us Minerva Guevara MD PATHOLOGY/CYTOLOGY Final Result [facility] [address] [place] [address], from Last 3 Months Insurance [employer] [facility] [place] / Payer (Ef fective 2023-Present) Name:Mac Beckham Relation to Subscriber:Self Name:Mac Beckham Payer ID:[id number] (NAIC) Group ID:[id number] Type:Not on file Address: MAILSTOP: [id number] [place] [address] Care Teams [employer] Clerk Relationship Specialty Start Date End Date Jill Donahue DO [address] [place] [address] PCP - General Family Practice 03/21/25
== END 2025-04-03 09:27 | disposition home or self-care (01) ==
LOC: NPINS 09:26
PROVIDERS: PCP Family Medicine; Visit Provider Nurse Practitioner Gerontology
DX: I50.9 Heart failure, unspecified (principal)
CPT/HCPCS: 80048

== ENCOUNTER 2025-05-01 12:05 | Outpatient (REF) | payer BC, SELFPAY ==
[2025-05-01 14:24] LABS: Chloride* 91 mmol/L (96-114)
[2025-05-01 14:25] LABS: Potassium* 3.5 mmol/L (3.6-5.1); Sodium* 135 mmol/L (135-149)
[2025-05-01 14:28] LABS: Anion Gap 16 mEq/L (7-15); Blood Urea Nitrogen* 37 mg/dL (7-30); Calcium* 9.1 mg/dL (8.4-10.6); Carbon Dioxide* 28 mmol/L (20-32); Creatinine* 1.3 mg/dL (0.5-1.5); Estimated Glomerular Filt Rate 54 ml/min; Glucose* 83 mg/dL (60-115)
--- OUTSIDE RECORDS SUMMARY | 2025-05-02 00:16 | XMS_ITS | Clinical Summary ---
Author Organization [facility] Address [address] [place] [address] Care Team Providers Care Batch Room Technician Name Role Phone Jill Donahue DO Primary Care Provider [phone] Allergies Active Allergy Reactions Criticality Noted Date [...] Type Department Care Team Description 03/14/2025 Telephone [facility] [address] [place] [address] Minerva Guevara MD Results (pathology) 03/07/2025 9:15 AM CDT Office Visit [facility] [address] [place] [address] Minerva Guevara MD Consult (Lesion left lower extremity referred by Dr. 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 Gender Identity Not on file Sexual Orientation Not on file Obstetrics History Last Filed Vital Signs Vital Sign Reading Time Taken Comments Blood Pressure 166/76 03/07/2025 9:18 AM CDT Pulse 57 03/07/2025 9:18 AM CDT Temperature 36.7 C (98.1 F) 05/27/2022 1:34 PM 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 Respiratory Rate - - Oxygen Saturation 98% [...] or (1 - 1-dose 75+ series) 09/09/2015 Influenza Vaccine (#1) 2025 Hepatitis B series for 19+ Aged Out N o longer eligible based on patient's age to complete this topic Procedures Procedure Name Priority Date/Time Associated Diagnosis Comments PATH TISSUE EXAM Routine 03/07/2025 9:51 AM CDT Foot mass, left from Last 3 Months Results * PATH TISSUE EXAM (03/07/2025 9:51 AM CDT) Case Report Pathology Report Case: [id number] Authorizing Provider: Minerva Guevara MD Collected: 03/07/2025 0951 Ordering Location: [facility] Received: 03/07/2025 1127 Clinic Pathologist: Mu Hicks Jr., MD Specimen: Left Foot, mass 03/13/2025 12:11 PM CDT [facility] Final Diagnosis SOFT TISSUE, LEFT FOOT, EXCISION: Benign angiomyoma 03/13/2025 12:11 PM CDT [facility] at 1211 CDT Clinical Information Left foot mass 03/13/2025 12:11 PM CDT [facility] Gross Description A) Received in formalin, [...] cassette. RAL 03/08/2025 03/13/2025 12:11 PM CDT [facility] Microscopic Description The final diagnosis is based on microscopic examination of appropriate sections of all specimens. An S-100 immunohistochemical stain was performed to evaluate for the possibility of this being a schwannoma; the stain is negative. 03/13/2025 12:11 PM CDT [facility] Additional Information Interpreted at [facility] - [address], [place] [address] Immunohistochemistry controls were reviewed and approved as appropriate by the pathologist during this examination. 03/13/2025 12:11 PM T [facility] Other (Left Foot) Non-Blood / Unknown 03/07/2025 9:51 AM CDT 03/07/2025 11:27 AM CDT us Minerva Guevara MD PATHOLOGY/CYTOLOGY Final Result [facility] [address] [place] [address], [place] from Last 3 Months Insurance [employer] [facility] Member Subscriber Plan / Payer (Ef fective 2023-Present) Name:Mac Beckham Relation to Subscriber:Self Name:Mac Beckham Payer ID:[id number] (NAIC) Group ID:[id number] Type:Not on file Address: MAILSTOP: [id number] [place] [address] Care Teams Batch Room Technician Relationship Specialty Start Date End Date [place] [address] [place] [address] PCP - General Family Practice 03/21/25
== END 2025-05-01 12:06 | disposition home or self-care (01) ==
LOC: NPINS 12:05
PROVIDERS: PCP Family Medicine; Visit Provider Nurse Practitioner Gerontology
DX: E87.6 Hypokalemia (principal)
CPT/HCPCS: 80048